=== PATIENT | female | born 1970 | race Asian ===

== ENCOUNTER → 2020-08-24 09:40 | Outpatient (BNVA) | payer OTHER, SELFPAY | PROVIDERS: PCP Internal Medicine; Referring Provider Internal Medicine; Visit Provider Advanced Practice Midwife | DX: Z30.09 Encounter for other general counseling and advice on contraception (principal); Z97.5 Presence of (intrauterine) contraceptive device | CPT/HCPCS: 99213; Q3014 ==

== ENCOUNTER → 2020-09-22 09:13 | Outpatient (BNVA) | payer OTHER, SELFPAY | PROVIDERS: Visit Provider Advanced Practice Midwife | DX: Z76.89 Persons encountering health services in other specified circumstances (principal) ==

== ENCOUNTER 2020-09-28 06:31 | Outpatient (REF) | payer OTHER, SELFPAY ==
[2020-09-28 12:04] LABS: Alanine Aminotransferase 15 U/L (0-31); Anion Gap 13 (12-20); Aspartate Amino Transferase 15 U/L (5-31); Blood Urea Nitrogen 14 mg/dL (9-16); Carbon Dioxide 29 mmol/L (22-29); Chloride 103 mmol/L (96-108); Cholesterol 214 mg/dL; Estimated Glomerular Filt Rate > 60; Glucose Fasting 126 mg/dL (60-99); HDL Cholesterol 47 mg/dL; LDL Cholesterol Calculated 125 mg/dl; Potassium 3.6 mmol/l (3.3-5.1); Sodium 141 mmol/L (135-145); Triglycerides 212 mg/dL
[2020-09-28 12:09] LABS: Estimated Average Glucose 117 mg/dL; Hemoglobin A1c % 5.7 %
== END 2020-09-28 06:32 | disposition home or self-care (01) ==
LOC: HO.HMGCLDS 06:31
PROVIDERS: PCP Internal Medicine; Visit Provider Internal Medicine
DX: E78.5 Hyperlipidemia, unspecified (principal); E11.9 Type 2 diabetes mellitus without complications; I10 Essential (primary) hypertension
CPT/HCPCS: 80048; 80061; 83036; 84450; 84460

== ENCOUNTER 2020-11-14 14:39 | Outpatient (REF) | payer OTHER, SELFPAY ==
--- NOTE | 2020-11-14 14:42 | MM_ITS ---
EXAMINATION: MM SCREENING DIGITAL BREAST TOMOSYNTHESIS, BILATERAL CLINICAL INFORMATION: Screening. Asymptomatic. The lifetime risk of breast cancer based on the Tyrer-Cuzick Model is 10%. COMPARISON: Mammography: 04/03/2019, 03/27/2018, 02/13/2017 TECHNIQUE: Digital breast tomosynthesis is performed in both the craniocaudal and mediolateral oblique views along with computer-aided detection (CAD). Synthesized 2D images are generated from the tomosynthesis. Additional bilateral MLO views are provided. FINDINGS: There are scattered areas of fibroglandular density (ACR BI-RADS breast composition Category b). There are no significant masses, abnormal calcifications, or other abnormalities. Parenchymal pattern is similar to prior study. The axilla and skin contours are unremarkable. No significant changes. MM/MM tomosynthesis screening BI IMPRESSION: No mammographic evidence of malignancy. ASSESSMENT: BI-RADS 1: Negative RECOMMENDATION: Routine annual mammography screening. This patient's information was entered into a reminder system with a target due date for their next mammogram.
== END 2020-11-14 14:40 | disposition home or self-care (01) ==
LOC: HO.MAMMO 14:39
PROVIDERS: PCP Internal Medicine; Visit Provider Internal Medicine
DX: Z12.31 Encounter for screening mammogram for malignant neoplasm of breast (principal)
CPT/HCPCS: 77063; 77067

== ENCOUNTER 2020-11-20 07:37 | Day surgery (SDC) | payer OTHER, SELFPAY ==
[2020-11-19 08:35] VITALS: BMI 32.9
--- NOTE | 2020-11-19 09:34 | P.CONAN_ITS ---
Documented by User: Dunia Quesada 11/19/20 09:38 HPI - Anesthesia Eval Consult details Narrative: 50yo F for Colonoscopy [facility] Past Medical History Medical History Essential hypertension History of hypertension Hx of anxiety disorder Hx of diabetes mellitus Hx of gastroesophageal reflux (GERD) Hx of vertigo Mixed dyslipidemia Type 2 diabetes mellitus without complication, without long-term current use of insulin Family History Family History Father Hypertension Kidney disease Mother Hypertension Stroke Surgical History Surgical History Hx of section Social History Social History Alcohol intake: never Smoking Status: Never smoker Second Hand Smoke Exposure: No Use of substances other than those prescribed or required for medical reasons: No Advance Directives: No Advance Directives Information Provided: No Advance Directives on File: No Gender identity: female Meds Allergies Allergy/AdvReac Type Severity Reaction Status Date / Time amoxicillin Allergy Unknown itchy, Verified 09/30/20 23:42 itching atorvastatin Allergy Unknown itchy, Verified 09/30/20 23:42 itching doxycycline Allergy Unknown hives Verified 09/30/20 23:42 Home Medications Medication Instructions Recorded Confirmed Type pravastatin 20 mg tablet 20 mg PO DAILY 08/24/20 History cetirizine 10 mg tablet 10 mg PO DAILY 09/30/20 History flu vac qs 2019(4 yr up)CD(PF) ml IM 09/30/20 History sertraline 50 mg tablet 50 mg PO DAILY 09/30/20 History Exam Exam Date and Time: November 19, 2020 0934 Height,Weight and Vital Signs: Height 5 ft 2 in Weight 81.647 kg Assessment and Plan Assessment Anesthesia Assessment: Chart Reviewed Documented by User: Adriana Robb 11/20/20 08:06 [facility] Past Medical History Medical History Essential hypertension History of hypertension Hx of anxiety disorder Hx of diabetes mellitus Hx of gastroesophageal reflux (GERD) Hx of vertigo Mixed dyslipidemia Type 2 diabetes mellitus without complication, without long-term current use of insulin Family History Family History Father Hypertension Kidney disease Mother Hypertension Stroke Surgical History Surgical History Hx of section Social History Social History Alcohol intake: never Smoking Status: Never smoker Second Hand Smoke Exposure: No Use of substances other than those prescribed or required for medical reasons: No Advance Directives: No Advance Directives Information Provided: No Advance Directives on File: No Gender identity: female Meds Allergies Allergy/AdvReac Type Severity Reaction Status Date / Time amoxicillin Allergy Unknown itchy, Verified 09/30/20 23:42 itching atorvastatin Allergy Unknown itchy, Verified 09/30/20 23:42 itching doxycycline Allergy Unknown hives Verified 09/30/20 23:42 Home Medications Medication Instructions Recorded Confirmed Type pravastatin 20 mg tablet 20 mg PO DAILY 08/24/20 History cetirizine 10 mg tablet 10 mg PO DAILY 09/30/20 History flu vac qs 2020(4 yr up)CD(PF) ml IM 09/30/20 History sertraline 50 mg tablet 50 mg PO DAILY 09/30/20 History Exam Airway Mallampati Class: II TM Dist: >3cm Neck ROM: Full Partial: Upper and Lower Heart: RRR Lungs: CTA Assessment and Plan Assessment Anesthesia Assessment: Anesthesia Plan Discussed and Chart Reviewed Final Anesthetic Review NPO: Yes ASA Class: II Final Preanesthetic Review: Meds/Allgs Chart Reviewed, Consent Obtained/Reviewed and Anes Risks/Benef Reviewed Patient Risk: Low Procedure Risk: Low Assessment/Block/Sedation in SS: Assess/Block/Sedation-SS Anesthetic Plan Anesthetic Plan: MAC: Disposition: Standard PACU
--- NOTE | 2020-11-20 07:53 | W.PM.OPN ---
Operative Note Operative Note Date of Service: 11/20/20 Narrative: Pre-op diagnosis: Colon cancer screening Post-op diagnosis: other (Diverticulosis, hemorrhoids) Procedure: COLONOSCOPY TO CECUM Consent: Indications for the procedure and potential complications of bleeding, perforation, reaction to medications and missed diagnosis were discussed with the patient and informed consent was obtained. Instrument: Olympus PCF H 190 L variable stiffness pediatric colonoscope Monitoring: Vital signs and clinical assessment, intermittent blood pressure monitoring, continuous EKG monitoring, Pulse oximetry and Carbon Dioxide monitoring were done throughout the procedure. Colon withdrawl time was 17 minutes. Procedure: The patient was placed in the left lateral decubitis position and pre-procedure medications were administered. After a digital rectal examination of the ano-rectum, the video colonoscope was inserted into the rectum and advanced through the colon to the cecum. The colonoscope was slowly withdrawn in a retrograde panoramic fashion and the colon mucosa was carefully examined including a retroflexed view of the rectum. Findings and interventions are described below. Procedure Difficulty: Without difficulty Findings: Terminal Ileum: Not evaluated Cecum: Normal Ascending Colon: Normal Transverse Colon: Normal Descending Colon: Normal Sigmoid Colon: Moderate diverticulosis Rectum: Normal Ano-rectum: Moderate internal hemorrhoids Colon preparation: Good after some irrigation. Impression and Post Procedure Diagnosis: Colonoscopy Findings: No polyps were detected Moderate diverticulosis seen in the sigmoid colon Moderate hemorrhoids on retroflexed exam. Plan: Await pathology results Patient has an appointment on 11/26/20 in the GI Clinic with LORAINE Haro. Repeat Colonoscopy in 10 years. 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
--- NOTE | 2020-11-20 07:53 | MHC.SHP ---
Pre-Procedural Eval Section A The patient is an INPATIENT: No Section B Chief Complaint: Screening Details of Present Illness: In cancer screening, intermittent rectal bleeding Relevant Family History (Specify if Yes): No Relevant Social History: None Present Medications: see Short Stay Collaborative assessment Medical History: Significant History (Vertigo. Hypertension. gastroesophageal reflux disease (GERD). Anxiety. Diabetes mellitus. Dyslipidemia. ) History of Previous Operations: No relevant previous surgery Allergies: Allergies Allergy/AdvReac Type Severity Reaction Status Date / Time amoxicillin Allergy Unknown itchy, Verified 09/30/20 23:42 itching atorvastatin Allergy Unknown itchy, Verified 09/30/20 23:42 itching doxycycline Allergy Unknown hives Verified 09/30/20 23:42 Review of Systems Sugical H&P ROS: Negative: Constitution, Cardiovascular, Respiratory and Gastrointestinal Exam Surgical H&P Exam: Normal: Heart, Normal: Lungs, Normal: Extremities and Normal: Abdomen Plan Diagnosis/Plan: Unchanged I have reviewed the history and physical and performed a pertinent physical examination on my patient. No changes have occurred unless specified.
[2020-11-20 08:02] VITALS: BP 138/94; PULSE 75; RESP 16; TEMP 35.9; O2SAT 97
[2020-11-20] MEDS: Lactated Ringers 1,000 ML 100 ML IVCONT (08:07)
[2020-11-20 08:55] VITALS: BP 113/73; PULSE 84; RESP 16; TEMP 36.3; O2SAT 97
[2020-11-20 09:11] VITALS: BP 118/86; PULSE 71; RESP 16; TEMP 36.3; O2SAT 96
== END 2020-11-20 09:50 | disposition home or self-care (01) ==
PROVIDERS: PCP Internal Medicine; Visit Provider Internal Medicine Gastroenterology
PROC: 0DJD8ZZ Inspection of Lower Intestinal Tract, Via Natural or Artificial Opening Endoscopic (ICD-10-PCS; CPT 45378; principal; 2020-11-20 09:30)
DX: Z12.11 Encounter for screening for malignant neoplasm of colon (principal); K57.30 Diverticulosis of large intestine without perforation or abscess without bleeding; K64.8 Other hemorrhoids; I10 Essential (primary) hypertension; E11.9 Type 2 diabetes mellitus without complications; Z79.84 Long term (current) use of oral hypoglycemic drugs; Z88.0 Allergy status to penicillin; Z88.1 Allergy status to other antibiotic agents; Z88.8 Allergy status to other drugs, medicaments and biological substances; Z79.899 Other long term (current) drug therapy
CPT/HCPCS: G0121

== ENCOUNTER → 2020-11-26 14:55 | Outpatient (BNVA) | payer OTHER, SELFPAY | PROVIDERS: PCP Internal Medicine; Visit Provider Physician Assistant | DX: K57.30 Diverticulosis of large intestine without perforation or abscess without bleeding (principal); K64.8 Other hemorrhoids | CPT/HCPCS: 99212; Q3014 ==

== ENCOUNTER 2020-12-30 06:22 | Outpatient (REF) | payer OTHER, SELFPAY ==
[2020-12-30 11:44] LABS: Estimated Average Glucose 120 mg/dL; Hemoglobin A1c % 5.8 %
[2020-12-30 12:08] LABS: Alanine Aminotransferase 16 U/L (0-31); Anion Gap 12 (12-20); Aspartate Amino Transferase 16 U/L (5-31); Blood Urea Nitrogen 16 mg/dL (9-16); Calcium 9.2 mg/dL (8.4-10.2); Carbon Dioxide 27 mmol/L (22-29); Chloride 106 mmol/L (96-108); Cholesterol 191 mg/dL; Estimated Glomerular Filt Rate > 60; Glucose Fasting 138 mg/dL (60-99); HDL Cholesterol 46 mg/dL; LDL Cholesterol Calculated 111 mg/dl; Potassium 3.8 mmol/L (3.3-5.1); Sodium 141 mmol/L (135-145); Triglycerides 170 mg/dL
[2020-12-30 12:13] LABS: Creatinine Urine 178.01 mg/dL; Microalbum/Creatinine Ratio Ur 85.3 ug/mg cr
== END 2020-12-30 06:23 | disposition home or self-care (01) ==
LOC: HO.HMGCLDS 06:22
PROVIDERS: PCP Internal Medicine; Visit Provider Internal Medicine
DX: I10 Essential (primary) hypertension (principal); E78.2 Mixed hyperlipidemia; E11.9 Type 2 diabetes mellitus without complications
CPT/HCPCS: 36415; 80048; 80061; 82043; 83036; 84450; 84460

== ENCOUNTER 2021-07-13 06:18 | Outpatient (REF) | payer OTHER, SELFPAY ==
[2021-07-13 11:46] LABS: Alanine Aminotransferase 29 U/L (0-31); Anion Gap 13 (12-20); Aspartate Amino Transferase 23 U/L (5-31); Blood Urea Nitrogen 14 mg/dL (9-16); Calcium 9.8 mg/dL (8.4-10.2); Carbon Dioxide 25 mmol/L (22-29); Chloride 107 mmol/L (96-108); Cholesterol 201 mg/dL; Estimated Glomerular Filt Rate > 60; Glucose Fasting 143 mg/dL (60-99); HDL Cholesterol 44 mg/dL; LDL Cholesterol Calculated 131 mg/dl; Sodium 141 mmol/L (135-145); Triglycerides 133 mg/dL
[2021-07-13 11:54] LABS: Estimated Average Glucose 128 mg/dL; Hemoglobin A1c % 6.1 %
[2021-07-13 11:55] LABS: Vitamin D 25-OH Total 32.2 ng/mL (>30)
== END 2021-07-13 06:19 | disposition home or self-care (01) ==
LOC: HO.HMGCLDS 06:18
PROVIDERS: PCP Internal Medicine; Visit Provider Internal Medicine
DX: E11.29 Type 2 diabetes mellitus with other diabetic kidney complication (principal); R80.9 Proteinuria, unspecified; I10 Essential (primary) hypertension; E78.2 Mixed hyperlipidemia
CPT/HCPCS: 36415; 80048; 80061; 82306; 83036; 84450; 84460

== ENCOUNTER 2021-09-20 11:32 | Outpatient (REF) | payer OTHER, SELFPAY ==
--- NOTE | ~2021-09-20 | XR_ITS ---
EXAMINATION: XR ANKLE, RIGHT CLINICAL INFORMATION: M25.571 - Pain in right ankle and joints of right foot COMPARISON: None TECHNIQUE: AP, lateral, and mortise views of the right ankle. FINDINGS: There is soft tissue swelling overlying lateral malleolus and also lesser soft tissue swelling medial side. No definite ankle capsular effusion appreciated on lateral view. The retrocalcaneal recess is preserved. The malleoli appear intact and there is no fracture or dislocation or destructive process. There is questionable asymmetry of the ankle mortise versus projectional. The subtalar joint is unremarkable. There is spurring from the distal anterior and distal posterior tibia with some corticated ossicle posterior side of the joint. Small posterior and moderate plantar calcaneal spurs are present. There is spurring from the dorsum tarsal navicular. XR/XR ankle RT min 3V IMPRESSION: Prominent soft tissue swelling, greater lateral side. No visible fracture or dislocation.
== END 2021-09-20 11:33 | disposition home or self-care (01) ==
LOC: HO.HMGCX 11:32
PROVIDERS: PCP Internal Medicine; Visit Provider Physician Assistant
DX: M25.571 Pain in right ankle and joints of right foot (principal)
CPT/HCPCS: 73610

== ENCOUNTER → 2021-09-28 09:10 | Outpatient (BNVA) | payer OTHER, SELFPAY | PROVIDERS: Visit Provider Advanced Practice Midwife ==

== ENCOUNTER 2021-11-27 09:44 | Outpatient (REF) | payer OTHER, SELFPAY ==
--- NOTE | ~2021-11-27 | MM_ITS ---
EXAMINATION: MM SCREENING DIGITAL BREAST TOMOSYNTHESIS, BILATERAL CLINICAL INFORMATION: Screening. Asymptomatic. The lifetime risk of breast cancer based on the Tyrer-Cuzick Model is 9%. COMPARISON: Mammography: 11/14/2020, 04/03/2019, 03/27/2018 TECHNIQUE: Digital breast tomosynthesis is performed in both the craniocaudal and mediolateral oblique views along with computer-aided detection (CAD). Synthesized 2D images are generated from the tomosynthesis. FINDINGS: There are scattered areas of fibroglandular density (ACR BI-RADS breast composition Category b). The left breast is unremarkable. There is no interval mass or architectural abnormality. Neither breast shows abnormal calcifications. The bilateral axilla and skin contours are unremarkable. Intramammary node posterior upper outer right breast is stable. Right CC tomography has subtle asymmetric density with questionable radiating lines central breast 0.5 cm from nipple. There is no MLO correlate. Finding may be related to incompletely compressed glandular tissue. Patient will be recalled for additional imaging. MM/MM tomosynthesis screening BI IMPRESSION: 1. Right: Asymmetric density with questionable radiating lines right CC tomography. 2. Left: No mammographic evidence of malignancy. ASSESSMENT: BI-RADS 0: Incomplete - Need Additional Imaging Evaluation RECOMMENDATION: 1. Additional views of the right breast (spot CC; rolled CC x 2). 2. Targeted ultrasound if warranted after review of the additional views. 3. Radiology department staff will contact the patient for additional imaging. This patient's information was entered into a reminder system with a target due date for their next mammogram.
== END 2021-11-27 09:45 | disposition home or self-care (01) ==
LOC: HO.MAMMO 09:44
PROVIDERS: PCP Internal Medicine; Visit Provider Internal Medicine
DX: Z12.31 Encounter for screening mammogram for malignant neoplasm of breast (principal)
CPT/HCPCS: 77063; 77067

== ENCOUNTER 2021-12-14 13:57 | Outpatient (REF) | payer OTHER, SELFPAY ==
--- NOTE | ~2021-12-14 | MM_ITS ---
EXAMINATION: MM DIAGNOSTIC DIGITAL BREAST TOMOSYNTHESIS, RIGHT CLINICAL INFORMATION: Recall from screening for question of asymmetric density and radiating lines central right breast on CC view. TC score 9%. COMPARISON: Mammography: 11/27/2021, 11/14/2020, 04/03/2019 TECHNIQUE: Digital breast tomosynthesis is performed. 2D images are generated from the tomosynthesis. The following views are obtained: Rolled CC x2, spot CC. FINDINGS: There are scattered areas of fibroglandular density (ACR BI-RADS breast composition Category b). The additional views show no asymmetric density or architectural abnormality. No developing density from prior studies. Fibroglandular densities are similar to prior studies. Results are discussed with the patient at time of visit. MM/MM tomosynthesis added views R IMPRESSION: Additional views show no asymmetric density or architectural abnormality. No significant changes from prior exams. ASSESSMENT: BI-RADS 1: Negative RECOMMENDATION: Routine annual mammography screening. This patient's information was entered into a reminder system with a target due date for their next mammogram.
== END 2021-12-14 13:58 | disposition home or self-care (01) ==
LOC: HO.MAMMO 13:57
PROVIDERS: PCP Internal Medicine; Visit Provider Internal Medicine
DX: R92.2 Inconclusive mammogram (principal)
CPT/HCPCS: 77061; 77065

== ENCOUNTER 2022-01-10 06:19 | Outpatient (REF) | payer OTHER, SELFPAY ==
[2022-01-10 12:07] LABS: Alanine Aminotransferase 31 U/L (0-31); Anion Gap 15 (12-20); Aspartate Amino Transferase 22 U/L (5-31); Blood Urea Nitrogen 9 mg/dL (9-16); Calcium 9.9 mg/dL (8.4-10.2); Carbon Dioxide 28 mmol/L (22-29); Chloride 103 mmol/L (96-108); Cholesterol 200 mg/dL; Estimated Glomerular Filt Rate > 60; Glucose Fasting 150 mg/dL (60-99); HDL Cholesterol 44 mg/dL; LDL Cholesterol Calculated 114 mg/dl; Potassium 4.1 mmol/L (3.3-5.1); Sodium 142 mmol/L (135-145); Triglycerides 213 mg/dL
[2022-01-10 12:32] LABS: Creatinine Urine 203.84 mg/dL; Microalbum/Creatinine Ratio Ur 57.3 ug/mg cr; Vitamin D 25-OH Total 20.2 ng/mL (>30)
[2022-01-10 12:38] LABS: Estimated Average Glucose 137 mg/dL; Hemoglobin A1c % 6.4 %
== END 2022-01-10 06:20 | disposition home or self-care (01) ==
LOC: HO.HMGCLDS 06:19
PROVIDERS: Visit Provider Internal Medicine
DX: E11.9 Type 2 diabetes mellitus without complications (principal); E78.2 Mixed hyperlipidemia; I10 Essential (primary) hypertension; Z78.0 Asymptomatic menopausal state
CPT/HCPCS: 36415; 80048; 80061; 82043; 82306; 83036; 84450; 84460

== ENCOUNTER → 2022-03-04 08:31 | Outpatient (REF) | payer OTHER, SELFPAY ==
--- NOTE | 2022-03-04 08:43 | ECG_ITS ---
Test Reason : z01.818 Blood Pressure : / mmHG Vent. Rate : 072 BPM Atrial Rate : 072 BPM P-R Int : 154 ms QRS Dur : 086 ms QT Int : 388 ms P-R-T Axes : 040 -06 -30 degrees QTc Int : 424 ms Normal sinus rhythm Nonspecific T wave abnormality Abnormal ECG When compared with ECG of 18-JAN-2013 13:18, No significant change was found Referred By: Claire Castillo Electronically Signed By:MATTHEW KEEN MD
== END ==
LOC: HO.CARD 08:31
PROVIDERS: PCP Internal Medicine; Visit Provider Internal Medicine
DX: Z01.810 Encounter for preprocedural cardiovascular examination (principal)
CPT/HCPCS: 93005

== ENCOUNTER 2022-03-07 06:05 | Outpatient (REF) | payer OTHER, SELFPAY ==
[2022-03-07 11:42] LABS: Estimated Average Glucose 131 mg/dL; Hemoglobin A1c % 6.2 %
[2022-03-07 11:56] LABS: Anion Gap 14 (12-20); Blood Urea Nitrogen 17 mg/dL (9-16); Calcium 9.5 mg/dL (8.4-10.2); Carbon Dioxide 25 mmol/L (22-29); Chloride 105 mmol/L (96-108); Estimated Glomerular Filt Rate > 60; Glucose Fasting 156 mg/dL (60-99); Potassium 3.6 mmol/L (3.3-5.1); Sodium 140 mmol/L (135-145)
== END 2022-03-07 06:06 | disposition home or self-care (01) ==
LOC: HO.HMGCLDS 06:05
PROVIDERS: Visit Provider Internal Medicine
DX: Z01.818 Encounter for other preprocedural examination (principal); E11.9 Type 2 diabetes mellitus without complications
CPT/HCPCS: 36415; 80048; 83036

== ENCOUNTER 2022-07-12 06:18 | Outpatient (REF) | payer OTHER, SELFPAY ==
[2022-07-12 12:10] LABS: Vitamin D 25-OH Total 29.9 ng/mL (>30)
[2022-07-12 12:13] LABS: Alanine Aminotransferase 40 U/L (0-31); Anion Gap 16 (12-20); Aspartate Amino Transferase 29 U/L (5-31); Blood Urea Nitrogen 12 mg/dL (9-16); Calcium 9.2 mg/dL (8.4-10.2); Carbon Dioxide 26 mmol/L (22-29); Chloride 103 mmol/L (96-108); Cholesterol 199 mg/dL; Estimated Glomerular Filt Rate > 60; Glucose Fasting 157 mg/dL (60-99); HDL Cholesterol 39 mg/dL; LDL Cholesterol Calculated 113 mg/dl; Potassium 4.1 mmol/L (3.3-5.1); Sodium 141 mmol/L (135-145); Triglycerides 237 mg/dL
[2022-07-12 12:16] LABS: Estimated Average Glucose 146 mg/dL; Hemoglobin A1c % 6.7 %
[2022-07-12 12:28] LABS: Uric Acid 7.2 mg/dL (2.4-5.7)
[2022-07-12 12:43] LABS: Creatinine Urine 111.25 mg/dL; Microalbum/Creatinine Ratio Ur 82.6 ug/mg cr
== END 2022-07-12 06:19 | disposition home or self-care (01) ==
LOC: HO.HMGCLDS 06:18
PROVIDERS: PCP Internal Medicine; Visit Provider Internal Medicine
DX: Z00.01 Encounter for general adult medical examination with abnormal findings (principal); E11.29 Type 2 diabetes mellitus with other diabetic kidney complication; E55.9 Vitamin D deficiency, unspecified; E78.2 Mixed hyperlipidemia; I10 Essential (primary) hypertension; R80.9 Proteinuria, unspecified; M25.50 Pain in unspecified joint
CPT/HCPCS: 36415; 80048; 80061; 82043; 82306; 83036; 84450; 84460; 84550

== ENCOUNTER 2022-11-14 06:30 | Outpatient (REF) | payer OTHER, SELFPAY ==
[2022-11-14 11:23] LABS: Estimated Average Glucose 154 mg/dL
[2022-11-14 11:38] LABS: Alanine Aminotransferase 41 U/L (0-31); Albumin Level 4.2 g/dL (3.5-5.0); Alkaline Phosphatase 99 U/L (39-117); Anion Gap 11 (12-20); Aspartate Amino Transferase 29 U/L (5-31); Bilirubin Total 1.1 mg/dL (0.0-1.0); Blood Urea Nitrogen 9 mg/dL (9-16); Calcium 9.3 mg/dL (8.4-10.2); Carbon Dioxide 28 mmol/L (22-29); Chloride 105 mmol/L (96-108); Cholesterol 193 mg/dL; Estimated Glomerular Filt Rate > 60; Glucose Fasting 178 mg/dL (60-99); HDL Cholesterol 43 mg/dL; LDL Cholesterol Calculated 124 mg/dl; Potassium 3.7 mmol/L (3.3-5.1); Sodium 140 mmol/L (135-145); Total Protein 7.5 g/dL (6.5-8.0); Triglycerides 133 mg/dL
[2022-11-14 11:42] LABS: Vitamin D 25-OH Total 24.5 ng/mL (>30)
[2022-11-14 12:51] LABS: Creatinine Urine 178.19 mg/dL; Microalbum/Creatinine Ratio Ur 118.9 ug/mg cr
== END 2022-11-14 06:31 | disposition home or self-care (01) ==
LOC: HO.HMGCLDS 06:30
PROVIDERS: PCP Internal Medicine; Visit Provider Internal Medicine
DX: E11.29 Type 2 diabetes mellitus with other diabetic kidney complication (principal); E55.9 Vitamin D deficiency, unspecified; E66.9 Obesity, unspecified; R80.9 Proteinuria, unspecified; I10 Essential (primary) hypertension; E78.2 Mixed hyperlipidemia
CPT/HCPCS: 36415; 80053; 80061; 82043; 82306; 83036

== ENCOUNTER 2022-11-18 12:04 | Outpatient (AMB) | payer OTHER, SELFPAY ==
--- NOTE | 2022-11-18 12:00 | MHC.PC.OV ---
Intake Visit Reasons: 3 month ffup dm ,lipids, [phone] Intake Note: Pt is having a telehealth follow up appointment. [phone] IPHONE Allergies amoxicillin Allergy (Unknown, Verified 02/26/24 01:25) itchy, itching atorvastatin Allergy (Unknown, Verified 02/26/24 01:25) itchy, itching doxycycline Allergy (Unknown, Verified 02/26/24 01:25) hives Medication List - Last Reconciled 11/18/22 by Claire Castillo MD azithromycin take 500 mg today (day 1), then 250 mg for 4 days (days 2-5) PO cetirizine 10 mg PO DAILY flu vac qs 2019(4 yr up)CD(PF) mL IM lisinopril 10 mg PO DAILY meclizine 12.5 mg PO DAILY PRN naproxen 500 mg PO BID PRN omeprazole 40 mg PO DAILY 30 days pravastatin 80 mg PO BEDTIME sertraline 50 mg PO DAILY Tobacco use date assessed: 11/18/22 HPI 3 month ffup dm ,lipids, [phone] HPI Details Tele health visit made with 53-year-old lady here today for follow-up on her diabetes mellitus and hyperlipidemia. Had recent fasting labs done which showed latest hemoglobin A1c higher at 7%. Has been trying to follow recommended diet but not able to get any regular exercise lately. LDL cholesterol on latest lab drawn was still elevated, even with taking pravastatin 80 mg daily PFSH Medical History (Updated 02/26/24 @ 01:27 by Claire Castillo MD) Depression, controlled History of shingles Intra-articular loose body Lesion of bone of ankle Vitamin D deficiency Dyslipidemia Obesity (BMI 30-39.9) Seasonal allergies Diabetes mellitus with microalbuminuria, without long-term current use of insulin Essential hypertension Type 2 diabetes mellitus without complication, without long-term current use of insulin Mixed dyslipidemia Hx of gastroesophageal reflux (GERD) Surgical History H/O foot surgery Hx of section Family History Father Hypertension Kidney disease Mother Hypertension Stroke Brother No problems noted. Brother No problems noted. Brother No problems noted. Brother No problems noted. Sister No problems noted. Sister No problems noted. Sister No problems noted. Sister No problems noted. Son No problems noted. 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 How often do you have a drink containing alcohol?: Never 3. How often do you have six or more drinks on one occasion?: Never Total Score: 0 EDI-7 AMB Questionnaire EDI-7 Date EDI - 7 assessed: 01/11/22 Source: Developed by Drs. Tay Kendall, Monet Blandon, Ritesh Miner and colleagues, with an educational yifan from [employer]. Review of Systems Const Denies fatigue, Denies fever(s), Denies headache(s) and Denies weakness Eyes Denies change in vision, Denies eye discharge and Denies itchy eyes ENT Denies dizziness, Denies headache(s), Denies nasal congestion, Denies nasal discharge and Denies sore throat Card Denies chest pain, Denies lightheadedness, Denies palpitations and Denies dyspnea Resp Denies chest congestion, Denies cough, Denies dyspnea and Denies wheezing GI Denies abdominal pain, Denies melena, Denies hematochezia, Denies change in bowel habits, Denies heartburn and Denies nausea Denies urinary frequency, Denies dysuria and Denies urinary urgency Musc Denies muscle cramps, Denies muscle weakness and Denies radiating pain into limb Neuro Denies dizziness, Denies headache(s) and Denies weakness Endo Denies fatigue, Denies polydipsia, Denies polyuria and Denies palpitations Aller/Immun Denies itchy eyes, Denies seasonal rhinorrhea and Denies wheezing Physical exam (Primary Care) Tobacco/Smoking Status: Tobacco use Status Tobacco use date assessed 11/18/22 11/18/22 12:01 Patient Tobacco Use Status Never used Tobacco 11/18/22 12:01 e-Cigarette/Vaping Use Never Used 11/18/22 12:01 Thrive Assessment: Date of Thrive Assessment Date Thrive assessed 01/11/22 11/18/22 12:01 Telehealth Telehealth Location of provider rendering services: practice address Location of patient: address on file Patient Identification confirmed using: Name, : Yes Telehealth method: video Patient verbally consented to treatment: Yes Patient verbally consented to billing insurance company: Yes Patient informed of any privacy concerns related to visit: Yes Minutes spent on Phone/Video with Pt.: 15 Results Reviewed Results Reviewed: Laboratory Tests 11/14/22 06:36 Estimat Average Glucose 154 Hemoglobin A1c % 7.0 Urine Creatinine 178.19 Urine Microalbumin 212.0 Microalb/Creat Ratio 118.9 Name: Leandro Núñez Age/Sex: 52/F : 1970 Unit#: [id number] Attend Dr: Claire Castillo MD Re11/14/22 Status: DEP [facility] Disch: SPEC : [id number] DAVID: 11/14/22-635 STATUS: COMP REQ : [id number] RECD: 11/14/22-[address]: Claire Castillo MD COMP: 11/14/22-1142 ENTERED: 11/14/22-[address]: ORDERED: CMP Fast, Lipid Panel, Vitamin D 25-OH Test Result Flag Reference Sodium 140 135-145 mmol/L Potassium 3.7 3.3-5.1 mmol/L CL 105 96-108 mmol/L CO2 28 22-29 mmol/L Gap 11 L 12-20 BUN 9 9-16 mg/dL Creat 0.70 0.5-1.4 mg/dL EGFR > 60 NOTE: For -[place] individuals, multiply the result by 1.210. Chronic Kidney Disease: Estimated GFR < 60 mL/min/1.73m2 Severe Kidney Disease: Estimated GFR < 15 mL/min/1.73m2 FBS 178 H 60-99 mg/dL A fasting glucose of 126 mg/dl or greater on more than one occasion is considered diagnostic of diabetes. CA 9.3 8.4-10.2 mg/dL Total Bili 1.1 H 0.0-1.0 mg/dL AST (GOT) 29 5-31 U/L ALT (GPT) 41 H 0-31 U/L Protein, Total 7.5 6.5-8.0 g/dL Alb 4.2 3.5-5.0 g/dL Triglyceride 133 mg/dL Desirable Triglyceride: less than 150 mg/dL Borderline High Triglyceride 150-199 mg/dL High Triglyceride: 200-499 mg/dL Very High Triglyceride: greater than or equal to 5OO mg/dL Chol 193 mg/dL Desirable Cholesterol: less than 200 mg/dL Borderline High Cholesterol: 200-239 mg/dL High Cholesterol: greater than 239 mg/dL LDL Calculated 124 mg/dl Desirable LDL: less than 100 mg/dL Near Optimal/Above Optimal LDL: 110-129 mg/dL Borderline High LDL: 130-159 mg/dL High LDL: 160-189 mg/dL Very High LDL: greater than or equal to 190 mg/dL HDL 43 mg/dL Desirable HDL: greater than 40 mg/dL Note: This HDL assay may give artificially low results in patients with liver disease. Alk Phos 99 39-117 U/L Vit D 25-OH Tot 24.5 >30 ng/mL Health Based Reference Values* < 20 ng/mL Deficient 20-30 ng/mL Insufficient > 30 ng/mL Sufficient Assessment and Plan Assessment & Plan (1) Vitamin D deficiency: Code(s): E55.9 - Vitamin D deficiency, unspecified Plan: Patient also noted to have low vitamin-D level on recent lab done. Prescription sent for cholecalciferol 54205 units per capsule to take once a week for the next 3 months. Advised patient to continue taking vitamin-D 3 at 2000 units daily once she completes taking this prescription. (2) Dyslipidemia: Code(s): E78.5 - Hyperlipidemia, unspecified Plan: Fasting lipid panel showed LDL cholesterol not at goal, discontinue pravastatin and switched to rosuvastatin 5 mg daily. (3) Diabetes mellitus with microalbuminuria, without long-term current use of insulin: Code(s): E11.29 - Type 2 diabetes mellitus with other diabetic kidney complication; R80.9 - Proteinuria, unspecified Plan: Diabetes mellitus poorly controlled with diet and exercise, with hemoglobin A1c at 7%. Will start on metformin 500 mg per tablet to take 1 tablet with supper, reinforced importance of getting regular diabetes ice-cream, following recommended diet and getting regular exercise. Will repeat another set of labs in 3 months (4) Essential hypertension: Code(s): I10 - Essential (primary) hypertension (5) Mixed dyslipidemia: Code(s): E78.2 - Mixed hyperlipidemia Orders: Orders Hemoglobin A1c 3 Months I10 - Essential (primary) hypertension, E78.2 - Mixed hyperlipidemia, E78.5 - Hyperlipidemia, unspecified, E55.9 - Vitamin D deficiency, unspecified Aspartate Amino Transferase 3 Months I10 - Essential (primary) hypertension, E78.2 - Mixed hyperlipidemia, E78.5 - Hyperlipidemia, unspecified, E55.9 - Vitamin D deficiency, unspecified Microalbumin, Random (w Creat) 3 Months I10 - Essential (primary) hypertension, E78.2 - Mixed hyperlipidemia, E78.5 - Hyperlipidemia, unspecified, E55.9 - Vitamin D deficiency, unspecified Alanine Aminotransferase 3 Months I10 - Essential (primary) hypertension, E78.2 - Mixed hyperlipidemia, E78.5 - Hyperlipidemia, unspecified, E55.9 - Vitamin D deficiency, unspecified Lipid Panel 3 Months I10 - Essential (primary) hypertension, E78.2 - Mixed hyperlipidemia, E78.5 - Hyperlipidemia, unspecified, E55.9 - Vitamin D deficiency, unspecified Basic Metabolic Panel Fasting 3 Months I10 - Essential (primary) hypertension, E78.2 - Mixed hyperlipidemia, E78.5 - Hyperlipidemia, unspecified, E55.9 - Vitamin D deficiency, unspecified Vitamin D 25-OH Total 3 Months I10 - Essential (primary) hypertension, E78.2 - Mixed hyperlipidemia, E78.5 - Hyperlipidemia, unspecified, E55.9 - Vitamin D deficiency, unspecified Medications: New metformin take with supper 500 mg PO DAILY 90 tabs 1RF rosuvastatin 5 mg PO DAILY 90 tabs 1RF Changed From cholecalciferol (vitamin D3) 1,250 mcg PO QWEEK 90 days 13 caps 0RF E55.9 - Vitamin D deficiency, unspecified, E78.5 - Hyperlipidemia, unspecified, E11.29 - Type 2 diabetes mellitus with other diabetic kidney complication, R80.9 - Proteinuria, unspecified To cholecalciferol (vitamin D3) 1,250 mcg PO QWEEK 13 caps 0RF 90 days E55.9 - Vitamin D deficiency, unspecified, E78.5 - Hyperlipidemia, unspecified, E11.29 - Type 2 diabetes mellitus with other diabetic kidney complication, R80.9 - Proteinuria, unspecified Discontinued pravastatin Discontinued Reason: Doctor's Order 80 mg PO BEDTIME 90 tabs 1RF E78.5 - Hyperlipidemia, unspecified Coding Level of Care Code Tele Est Pt Level 4 (11690) Diagnoses Vitamin D deficiency E55.9 Dyslipidemia E78.5 Diabetes mellitus with microalbuminuria, without long-term current use of insulin E11.29; R80.9 Essential hypertension I10 Mixed dyslipidemia E78.2
== END 2022-11-18 13:55 | disposition home or self-care (01) ==
LOC: HO.HMGC 12:04
PROVIDERS: PCP Internal Medicine; Visit Provider Internal Medicine
DX: E55.9 Vitamin D deficiency, unspecified (principal); E78.5 Hyperlipidemia, unspecified; E11.29 Type 2 diabetes mellitus with other diabetic kidney complication; R80.9 Proteinuria, unspecified; I10 Essential (primary) hypertension; E78.2 Mixed hyperlipidemia
CPT/HCPCS: 99499

== ENCOUNTER 2022-12-03 10:09 | Outpatient (REF) | payer OTHER, SELFPAY ==
--- NOTE | ~2022-12-03 | MM_ITS ---
EXAMINATION: MM SCREENING DIGITAL BREAST TOMOSYNTHESIS, BILATERAL CLINICAL INFORMATION: Screening. Asymptomatic. The lifetime risk of breast cancer based on the Tyrer-Cuzick Model is 9.6%. COMPARISON: Mammography: December 14, 2021 and studies dating back to December 01, 2015 TECHNIQUE: Digital breast tomosynthesis is performed in both the craniocaudal and mediolateral oblique views along with computer-aided detection (CAD). Synthesized 2D images are generated from the tomosynthesis. FINDINGS: There are scattered areas of fibroglandular density (ACR BI-RADS breast composition Category b). There are no new significant masses, abnormal calcifications, or other abnormalities. MM/MM tomosynthesis screening BI IMPRESSION: No significant changes ASSESSMENT: BI-RADS 1: Negative RECOMMENDATION: Routine annual mammography screening. This patient's information was entered into a reminder system with a target due date for their next mammogram.
== END 2022-12-03 10:10 | disposition home or self-care (01) ==
LOC: HO.MAMMO 10:09
PROVIDERS: PCP Internal Medicine; Visit Provider Internal Medicine
DX: Z12.31 Encounter for screening mammogram for malignant neoplasm of breast (principal)
CPT/HCPCS: 77063; 77067

== ENCOUNTER 2022-12-15 10:46 | Outpatient (REF) | payer OTHER, SELFPAY ==
[2022-12-16 13:15] LABS: BV Int Neg Control Negative (Negative); BV Int Pos Control Positive (Positive)
== END 2022-12-15 10:47 | disposition home or self-care (01) ==
LOC: HO.LAB 10:46
PROVIDERS: PCP Internal Medicine; Visit Provider Advanced Practice Midwife
DX: Z01.419 Encounter for gynecological examination (general) (routine) without abnormal findings (principal); N89.8 Other specified noninflammatory disorders of vagina
CPT/HCPCS: 87480; 87510; 87660

== ENCOUNTER → 2023-01-26 14:49 | Outpatient (BNVA) | payer OTHER, SELFPAY | PROVIDERS: PCP Internal Medicine; Visit Provider Advanced Practice Midwife | DX: Z30.432 Encounter for removal of intrauterine contraceptive device (principal); T83.32XA Displacement of intrauterine contraceptive device, initial encounter | CPT/HCPCS: 58301 ==

== ENCOUNTER 2023-02-16 06:35 | Outpatient (REF) | payer OTHER, SELFPAY ==
[2023-02-16 11:44] LABS: Alanine Aminotransferase 32 U/L (0-31); Anion Gap 15 (12-20); Aspartate Amino Transferase 22 U/L (5-31); Blood Urea Nitrogen 14 mg/dL (9-16); Calcium 9.3 mg/dL (8.4-10.2); Carbon Dioxide 28 mmol/L (22-29); Chloride 103 mmol/L (96-108); Cholesterol 157 mg/dL; Estimated Glomerular Filt Rate > 60; Glucose Fasting 139 mg/dL (60-99); HDL Cholesterol 40 mg/dL; LDL Cholesterol Calculated 86 mg/dl; Potassium 3.8 mmol/L (3.3-5.1); Sodium 142 mmol/L (135-145); Triglycerides 157 mg/dL
[2023-02-16 11:56] LABS: Estimated Average Glucose 126 mg/dL
[2023-02-16 12:00] LABS: Vitamin D 25-OH Total 86.1 ng/mL (>30)
[2023-02-16 12:32] LABS: Microalbum/Creatinine Ratio Ur 59.2 ug/mg cr
== END 2023-02-16 06:36 | disposition home or self-care (01) ==
LOC: HO.HMGCLDS 06:35
PROVIDERS: PCP Internal Medicine; Visit Provider Internal Medicine
DX: E55.9 Vitamin D deficiency, unspecified (principal); I10 Essential (primary) hypertension; E78.2 Mixed hyperlipidemia
CPT/HCPCS: 36415; 80048; 80061; 82043; 82306; 83036; 84450; 84460

== ENCOUNTER 2023-07-12 06:09 | Outpatient (REF) | payer OTHER, SELFPAY ==
[2023-07-12 12:09] LABS: Estimated Average Glucose 134 mg/dL; Hemoglobin A1c % 6.3 % (<6.0)
[2023-07-12 12:41] LABS: Alanine Aminotransferase 37 U/L (0-31); Anion Gap 14 (12-20); Aspartate Amino Transferase 33 U/L (5-31); Blood Urea Nitrogen 12 mg/dL (9-16); Calcium 9.4 mg/dL (8.4-10.2); Carbon Dioxide 26 mmol/L (22-29); Chloride 105 mmol/L (96-108); Cholesterol 144 mg/dL (<200); Estimated Glomerular Filt Rate > 60; Glucose Fasting 157 mg/dL (60-99); HDL Cholesterol 43 mg/dL (>40); LDL Cholesterol Calculated 73 mg/dL (<100); Potassium 3.6 mmol/L (3.3-5.1); Sodium 141 mmol/L (135-145); Triglycerides 144 mg/dL (<150)
== END 2023-07-12 06:10 | disposition home or self-care (01) ==
LOC: HO.HMGCLDS 06:09
PROVIDERS: PCP Internal Medicine; Visit Provider Internal Medicine
DX: E66.9 Obesity, unspecified (principal); E11.29 Type 2 diabetes mellitus with other diabetic kidney complication; R80.9 Proteinuria, unspecified; E78.2 Mixed hyperlipidemia; J30.2 Other seasonal allergic rhinitis; I10 Essential (primary) hypertension
CPT/HCPCS: 36415; 80048; 80061; 83036; 84450; 84460

== ENCOUNTER 2023-07-13 15:15 | Outpatient (AMB) | payer OTHER, SELFPAY ==
[2023-07-13 15:32] VITALS: BMI 36.0
--- NOTE | 2023-07-13 15:32 | A.OFFPC_ITS ---
Vital Signs 07/13/23 15:32 07/13/23 15:43 Height 5 ft 2 in 5 ft 2 in Weight 197 lb 197 lb BMI 36.0 36.0 BP 124/90 H Blood Pressure Location Rt brachial Position Sitting Pulse 84 Pulse Source Pulse Oximeter Pulse Oximetry (%) 97 Oxygen Delivery Method Room Air Intake Visit Reasons: Annual PE/OK Dr. 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 Required: No Accompanied by: Self / Same As Patient Allergies amoxicillin Allergy (Unknown, Verified 07/13/23 17:22) itchy, itching atorvastatin Allergy (Unknown, Verified 07/13/23 17:22) itchy, itching doxycycline Allergy (Unknown, Verified 07/13/23 17:22) hives Medication List - Last Reconciled 07/13/23 by Claire Castillo MD lisinopril 10 mg PO DAILY metformin 500 mg PO DAILY rosuvastatin 5 mg PO DAILY sertraline 50 mg PO DAILY Tobacco use date assessed: 02/21/23 Dental Screening Dental Screen Date: 07/13/23 Did you have a dental visit in the last 12 months?: Yes Did you have a dental problem in the last 6 months where you did not have access to dental care?: No Was dental information given to patient?: Patient has dentist HPI Annual PE/OK Dr. Castillo HPI Details 52-year-old lady here today for physical exam and follow-up on her diabetes meds lipids. She is up-to-date with her screening mammogram and colonoscopy, as well as her cervical cancer screening/Pap smear. Has been compliant with taking her medications and tries to follow recommended diet but admits to not getting any regular exercise apart from work due to recurrent pain still in her right ankle after surgery. [facility] Medical History Depression, controlled History of shingles Intra-articular loose body Right ankle instability Lesion of bone of ankle Vitamin D deficiency Dyslipidemia Obesity (BMI 30-39.9) Seasonal allergies Diabetes mellitus with microalbuminuria, without long-term current use of insulin Essential hypertension Type 2 diabetes mellitus without complication, without long-term current use of insulin Mixed dyslipidemia Hx of anxiety disorder Hx of gastroesophageal reflux (GERD) Hx of vertigo Surgical History H/O foot surgery Hx of section Family History Father Hypertension Kidney disease Mother Hypertension Stroke Brother No problems noted. Brother No problems noted. Brother No problems noted. Brother No problems noted. Sister No problems noted. Sister No problems noted. Sister No problems noted. Sister No problems noted. Son No problems noted. 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 occupational status: employed Current occupation: [employer] Gender identity: Female Cognitive needs: No Hearing needs: No Vision needs: No Female Reproductive History Menstrual Age of Menarche: 14 Questionnaire PHQ-9 Over the last 2 weeks, how often have you been bothered by any of the following problems? 1. Little interest or pleasure in doing things: not at all 2. Feeling down, depressed, or hopeless: not at all 3. Trouble falling or staying asleep, or sleeping too much: not at all 4. Feeling tired or having little energy: not at all 5. Poor appetite or overeating: not at all 6. Feeling bad about yourself - or that you are a failure or have let yourself or your family down: not at all 7. Trouble concentrating on things, such as reading the newspaper or watching television: not at all 8. Moving or speaking so slowly that other people could have noticed. Or the opposite - being so fidgety or restless that you have been moving around a lot more than usual: not at all 9. Thoughts that you would be better off or of hurting yourself in some way: not at all Total score: 0 Depression Screening Interpretation: Negative 24618 - PHQ-9 Billing: Yes Source: Developed by Drs. Tay Kendall, Monet Blandon, Ritesh Miner and colleagues, with an educational yifan from [employer]. Thrive Questionnaire Date Thrive assessed: 07/13/23 I am a: Patient What is your living situation today?: I have a steady place to live Within the past 12 months, did the food you bought not last and you didn't have the money to get more?: Never true Within the past 12 months, did you worry whether your food would run out before you got money to buy more?: Never true Do you have trouble paying for medicines?: No Do you have trouble getting transportation to medical appointments?: No Do you have trouble paying your heating and electricity bill?: No Do you have trouble taking care of your child, family member or friend?: No Do you have trouble with day-to-day activities such as bathing, preparing meals, shopping, managing finances, etc.?: No Are you currently unemployed and looking for a job?: No Are you interested in more education?: No Please select the resources that you would like help with: None Currently or been in a relationship where the following occur: no concerns reported EDI-7 AMB Questionnaire EDI-7 Date EDI - 7 assessed: 07/13/23 Feeling nervous, anxious, or on edge: 0 = Not at all Not being able to stop or control worryin = Not at all Worrying too much about different things: 0 = Not at all Trouble relaxin = Not at all Being so restless that it is hard to sit still: 0 = Not at all Becoming easily annoyed or irritable: 0 = Not at all Feeling afraid as if something awful might happen: 0 = Not at all Total EDI-7 score (0-4 normal; 5-9 mild; 10-14 moderate; 15-21 severe): 0 Source: Developed by Drs. Tay Kendall, Monet Blandon, Ritesh Miner and colleagues, with an educational yifan from [employer]. EDI-7 Assessment Billing EDI-7 Assessment Tool: EDI-7 Assessment 30897 Review of Systems Const Denies fatigue, Denies fever(s), Denies headache(s) and Denies weakness Eyes Denies change in vision ENT Denies dizziness, Denies headache(s), Denies nasal congestion, Denies nasal discharge and Denies sore throat Card Denies chest pain, Denies lightheadedness, Denies palpitations and Denies dyspnea Resp Denies chest congestion, Denies cough, Denies dyspnea and Denies wheezing GI Denies abdominal pain, Denies melena, Denies hematochezia, Denies change in bowel habits, Denies heartburn and Denies nausea Denies urinary frequency, Denies dysuria and Denies urinary urgency Musc Denies myalgias, Denies arthralgias and Denies muscle weakness Skin/Breast Denies breast swelling, Denies breast pain, Denies breast mass, Denies lesions and Denies rash Neuro Denies dizziness, Denies headache(s) and Denies weakness Psych Reports no additional complaints Endo Denies fatigue, Denies polydipsia, Denies polyuria and Denies palpitations Claudy/Lymph Denies easy bleeding and Denies easy bruising Aller/Immun Denies seasonal rhinorrhea and Denies wheezing Physical exam (Primary Care) Vital Signs: Last Vital Signs Pulse 84 07/13/23 15:43 BP 124/90 H 07/13/23 15:43 Pulse Ox 97 07/13/23 15:43 Oxygen Delivery Method Room Air 07/13/23 15:43 BMI result Body Mass Index 36.0 Tobacco/Smoking Status: Tobacco use Status Tobacco use date assessed 02/21/23 07/13/23 15:34 Patient Tobacco Use Status Never used Tobacco 07/13/23 15:34 e-Cigarette/Vaping Use Never Used 07/13/23 15:34 PHQ-9: PHQ-9 Score PHQ-9: Total score 0 07/13/23 16:27 Depression Screening Interpretation: Negative Thrive Assessment: Date of Thrive Assessment Date Thrive assessed 07/13/23 07/13/23 15:44 Currently or been in a relationship where the following occur: no concerns reported Const Other: Alert oriented x3, no acute distress noted ambulatory with normal gait Nutritional Appearance: obese Orientation/consciousness: patient oriented x3 [facility] Ears: hearing grossly normal bilaterally and EAC's normal General nose exam: Normal external nose present and No nasal discharge present Mouth: Normal oral and palatal mucosa present and moist mucous membranes Eyes General: appearance normal, both eyes and all related structures Neck Neck: Yes full ROM, Yes no lymphadenopathy and Yes supple Thyroid: Thyroid normal Chest Chest palpation & inspection: normal inspection of the chest and normal palpation of entire chest wall Breast/axilla palpation: normal palpation of the breasts Resp Auscultation: clear to auscultation bilaterally Cardio Other: S1-S2 present regular rate and rhythm GI Other: Normal bowel sounds, soft, nontender, no mass palpated General: Yes no CVA tenderness Back/Spine/Pelvis Back: no CVA tenderness and No back tenderness Skin General skin exam: no rashes or lesions noted Neuro General: patient oriented x3, tone normal, Normal light touch and pain sensation, no focal motor deficits and CN's II-XI intact bilaterally Extrem General: Yes full ROM, Yes no joint enlargement, Yes no pedal edema, Yes no calf tenderness and Yes normal gait Psych Appearance: grossly normal and well kempt Mental Status: mental status grossly normal Speech and movement: Normal speech and movement present Affect: normal affect Attitude: cooperative Thought process: Normal thought process present Thought content: Normal thought content present Results Reviewed Results Reviewed: Laboratory Tests 07/12/23 06:43 Estimat Average Glucose 134 Hemoglobin A1c % 6.3 H ENTERED: 07/12/23 SHELLY LE: ORDERED: Met Prof Fast, AST, ALT, Lipid Panel Test Result Flag Reference Site Sodium 141 135-145 mmol/L Potassium 3.6 3.3-5.1 mmol/L CL 105 96-108 mmol/L CO2 26 22-29 mmol/L Gap 14 12-20 BUN 12 9-16 mg/dL Creat 0.73 0.5-1.4 mg/dL EGFR > 60 NOTE: For -Micronesian individuals, multiply the result by 1.210. Chronic Kidney Disease: Estimated GFR < 60 mL/min/1.73m2 Severe Kidney Disease: Estimated GFR < 15 mL/min /1.73m2 FBS 157 H 60-99 mg/dL A fasting glucose of 126 mg/dl or greater on more than one occasion is considered diagnostic of diabetes. CA 9.4 8.4-10.2 mg/dL AST (GOT) 33 H 5-31 U/L ALT (GPT) 37 H 0-31 U/L Triglyceride 144 <150 mg/dL Desirable Triglyceride: less than 150 mg/dL Borderline High Triglyceride 150-199 mg/dL High Triglyceride: 200-499 mg/dL Very High Triglyceride: greater than or equal to 5OO mg/dL Cholesterol 144 <200 mg/dL Desirable Cholesterol: less than 200 mg/dL Borderline High Cholesterol: 200-239 mg/dL High Cholesterol: greater than 239 mg/dL LDL Calculated 73 <100 mg/dL Desirable LDL: less than 100 mg/dL Near Optimal/Above Optimal LDL: 110-129 mg/dL Borderline High LDL: 130-159 mg/dL High LDL: 160-189 mg/dL Very High LDL: greater than or equal to 190 mg/dL HDL 43 >40 mg/dL Desirable HDL: greater than 40 mg/dL Note: This HDL assay may give artificially low results in patients with liver disease. Assessment and Plan Assessment & Plan (1) Annual visit for general adult medical examination with abnormal findings: Code(s): Z00.01 - Encounter for general adult medical examination with abnormal findings Plan: Discuss recent fasting lab results with patient. Continue with regular dental visit every 6 months and annual eye exams. Take adequate calcium in diet and vitamin-D 3 at 2000 IU per cap once a day, in addition to weight-bearing exercises to help maintain good muscle tone and weight control. Instructed to do self-breast exam, and continue to get yearly mammogram, up-to-date with her cervical cancer screening, due again in 2024 and up-to-date with her screening colonoscopy. Reminded to get her COVID booster and flu shot date with her Tdap and Prevnar 20 (2) Depression, controlled: Code(s): F32.A - Depression, unspecified Plan: Continue on sertraline 50 mg daily (3) Obesity (BMI 30-39.9): Code(s): E66.9 - Obesity, unspecified Plan: Recommended focusing on improving your health instead of dieting. : Eat Med iterranean diet, limit foods high in fat, sugar, and calories, eat slowly, pay attention to portion sizes, plan your meals ahead of time, start regular physical activity 150 minutes of moderate intensity exercise or 90 minutes/week of vigorous exercise and increase water intake. (4) Diabetes mellitus with microalbuminuria, without long-term current use of insulin: Code(s): E11.29 - Type 2 diabetes mellitus with other diabetic kidney complication; R80.9 - Proteinuria, unspecified Plan: Recent lab results reviewed with patient, with sugar and hemoglobin A1c stable and at goal. Continue metformin 500 mg daily and continue to check fasting blood sugar at home, maintain log and bring to next appointment for review. Reinforced diabetic diet and regular exercise with patient. Counseled regarding importance of yearly diabetes retinopathy screening. Patient advised to inspect feet daily, for any signs of injury, callus or infection. Compliance with diet and regular exercise again stressed. Blood pressure goal is less than 130/80, goal LDL is less than 100 and goal hemoglobin A1c is less than 7% follow-up appointment made in--3-months, after fasting labs done. (5) Essential hypertension: Code(s): I10 - Essential (primary) hypertension Plan: Blood pressure at goal of less than 130/80. Continue with lisinopril 10 mg daily. Reinforced importance of following a low sodium diet, getting regular exercise, and lowering stress levels. (6) Mixed dyslipidemia: Code(s): E78.2 - Mixed hyperlipidemia Plan: Reviewed recent fasting lipid profile with patient with levels within normal limit . Continue with rosuvastatin 5 mg daily , in addition to adherence to low-cholesterol diet and regular exercise, at least 30 minutes 3 to 4 times a week. Advised patient to make healthy food choices, eat more fruits, vegetables, whole grains, wild caught fish and low-fat dairy. Limit amount of meat and fried or fatty food products, as well as processed foods and fast foods. Follow-up scheduled with repeat fasting lipid panel in 3 months. Orders: Orders Microalbumin, Random (w Creat) 09/29/23 E11.29 - Type 2 diabetes mellitus with other diabetic kidney complication, E66.9 - Obesity, unspecified, E78.2 - Mixed hyperlipidemia, F32.A - Depression, unspecified, I10 - Essential (primary) hypertension, R80.9 - Proteinuria, unspecified Alanine Aminotransferase 09/29/23 E11.29 - Type 2 diabetes mellitus with other diabetic kidney complication, E66.9 - Obesity, unspecified, E78.2 - Mixed hyperlipidemia, F32.A - Depression, unspecified, I10 - Essential (primary) hypertension, R80.9 - Proteinuria, unspecified Aspartate Amino Transferase 09/29/23 E11.29 - Type 2 diabetes mellitus with o ther diabetic kidney complication, E66.9 - Obesity, unspecified, E78.2 - Mixed hyperlipidemia, F32.A - Depression, unspecified, I10 - Essential (primary) hypertension, R80.9 - Proteinuria, unspecified Vitamin D 25-OH Total 09/29/23 E11.29 - Type 2 diabetes mellitus with other diabetic kidney complication, E66.9 - Obesity, unspecified, E78.2 - Mixed hyperlipidemia, F32.A - Depression, unspecified, I10 - Essential (primary) hypertension, R80.9 - Proteinuria, unspecified Basic Metabolic Panel Fasting 09/29/23 E11.29 - Type 2 diabetes mellitus with other diabetic kidney complication, E66.9 - Obesity, unspecified, E78.2 - Mixed hyperlipidemia, F32.A - Depression, unspecified, I10 - Essential (primary) hypertension, R80.9 - Proteinuria, unspecified Hemoglobin A1c 09/29/23 E11.29 - Type 2 diabetes mellitus with other diabetic kidney complication, E66.9 - Obesity, unspecified, E78.2 - Mixed hyperlipidemia, F32.A - Depression, unspecified, I10 - Essential (primary) hypertension, R80.9 - Proteinuria, unspecified Lipid Panel 09/29/23 E11.29 - Type 2 diabetes mellitus with other diabetic kidney complication, E66.9 - Obesity, unspecified, E78.2 - Mixed hyperlipidemia, F32.A - Depression, unspecified, I10 - Essential (primary) hypertension, R80.9 - Proteinuria, unspecified Coding Level of Care Code Est Pt [facility] [place] Care [id number]) Diagnoses Annual visit for general adult medical examination with abnormal findings Z00.01 Depression, controlled F32.A Obesity (BMI 30-39.9) E66.9 Diabetes mellitus with microalbuminuria, without long-term current use of insulin E11.29; R80.9 Essential hypertension I10 Mixed dyslipidemia E78.2 Additional Codes EDI-7 Assessment Billing - EDI-7 Assessment Tool: EDI-7 Assessment 44568 ([id number])
[2023-07-13 15:43] VITALS: BP 124/90; PULSE 84; O2SAT 97; BMI 36.0
== END 2023-07-13 16:32 | disposition home or self-care (01) ==
PROVIDERS: Visit Provider Internal Medicine
DX: Z00.01 Encounter for general adult medical examination with abnormal findings (principal); E11.29 Type 2 diabetes mellitus with other diabetic kidney complication; E66.9 Obesity, unspecified; Z68.36 Body mass index [BMI] 36.0-36.9, adult; I10 Essential (primary) hypertension; F32.A Depression, unspecified; R80.9 Proteinuria, unspecified; E78.2 Mixed hyperlipidemia
CPT/HCPCS: 99396

== ENCOUNTER 2023-07-21 09:52 | Outpatient (AMB) | payer OTHER, SELFPAY ==
[2023-07-21 10:52] VITALS: BP 138/90; PULSE 78; TEMP 36.6; O2SAT 97; BMI 36.0
--- NOTE | 2023-07-21 10:52 | AM.OFFWIN_ITS ---
Intake Vital Signs 07/21/23 10:52 Height 5 ft 2 in Weight 197 lb BMI 36.0 BP 138/90 H Blood Pressure Location Rt brachial Position Sitting Pulse 78 Pulse Source Pulse Oximeter Temp 97.9 F Temp Source Temporal Artery Scan Pulse Oximetry (%) 97 Intake Visit Reasons: EP, Left side ear swelling, sore throat (masked) Intake Note: pt is here for c/o left side ear pain/swelling with sore throat Patient Tobacco Use Status: Never used Tobacco Allergies amoxicillin Allergy (Unknown, Verified 07/21/23 10:52) itchy, itching atorvastatin Allergy (Unknown, Verified 07/21/23 10:52) itchy, itching doxycycline Allergy (Unknown, Verified 07/21/23 10:52) hives Do you need a note to return to daycare/school/sports/work: Yes HPI HPI Comments History of Present Illness Details This is a 52-year-old female who presents to the office today for sick visit. Patient complaining of left-sided ear pain with radiation into the postauricular region, sore throat, and a mild cough. her symptoms have been ongoing for the past 3 days. No fevers or chills. No chest pain or shortness of breath. No abdominal pain or nausea/vomiting/diarrhea. The patient feels as though the left side of her neck is swollen. [facility] Medical History Depression, controlled History of shingles Intra-articular loose body Right ankle instability Lesion of bone of ankle Vitamin D deficiency Dyslipidemia Obesity (BMI 30-39.9) Seasonal allergies Diabetes mellitus with microalbuminuria, without long-term current use of insulin Essential hypertension Type 2 diabetes mellitus without complication, without long-term current use of insulin Mixed dyslipidemia Hx of anxiety disorder Hx of gastroesophageal reflux (GERD) Hx of vertigo Surgical History H/O foot surgery Hx of section Family History Father Hypertension Kidney disease Mother Hypertension Stroke Brother No problems noted. Brother No problems noted. Brother No problems noted. Brother No problems noted. Sister No problems noted. Sister No problems noted. Sister No problems noted. Sister No problems noted. Son No problems noted. 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 Gender identity: Female Cognitive needs: No Hearing needs: No Vision needs: No Female Reproductive History Menstrual Age of Menarche: 14 Review of Systems Const All systems reviewed & are unremarkable except as noted in HPI and below Reports no additional complaints Eyes Reports no additional complaints ENT Reports no additional complaints Card Reports no additional complaints Resp Reports no additional complaints GI Reports no additional complaints Reports no additional complaints Musc Reports no additional complaints Skin/Breast Reports system reviewed and no additional complaints, except as documented Neuro Reports no additional complaints Psych Reports no additional complaints Endo Reports no additional complaints Claudy/Lymph Reports no additional complaints Aller/Immun Reports no additional complaints Physical Exam Vital Signs: Last Vital Signs Temp 97.9 F 07/21/23 10:52 Pulse 78 07/21/23 10:52 BP 138/90 H 07/21/23 10:52 Pulse Ox 97 07/21/23 10:52 BMI result Body Mass Index 36.0 Const Other: Vital signs reviewed. Constitutional: Non-toxic appearing. No acute distress. Well-developed and well-nourished. HEENT: Normocephalic and atraumatic. Erythema, edema, and bulging of left tympanic membrane as well as mild erythema and bulging of the right tympanic membrane. Mild postauricular tenderness to palpation but no swelling or erythema. Mild posterior oropharyngeal erythema without exudates, unilateral tonsillar edema, peritonsillar mass, or uvular deviation. Moist mucous membranes. Skin: Warm and dry. No rashes or lesions noted. Neck: Full and painless range of motion. No cervical lymphadenopathy. Cardio: Regular rate and rhythm. No murmurs, gallops, or rubs. No lower extremity edema. No JVD. Pulmonary: No respiratory distress. No accessory muscle usage. Clear to auscultation bilaterally without wheezing, crackles, or rhonchi. Gastrointestinal: Soft, nontender, and nondistended in all 4 quadrants. Normoactive bowel sounds in all 4 quadrants. Genitourinary: No CVA tenderness. Musculoskeletal: Normal range of motion in joints throughout the body. No deformity or other signs of injury. Neuro: Alert and oriented x4. Cranial nerves 2-12 grossly intact. No focal deficits appreciated. Psych: Normal mood and affect. Results AMB Rapid Strep AMB Rapid Strep Negative Last Edit by Francisco Javier Dior CMA on 07/21/23 11 :01 Results Reviewed Results Reviewed: Laboratory Last Values Strep Scn Rapid Clinic Negative 07/21/23 10:59 Assessment & Plan Assessment & Plan (1) Otitis media of left ear: Code(s): H66.92 - Otitis media, unspecified, left ear Plan: This is a 52-year-old female presenting to the office complaining of left-sided ear pain, sore throat, and a sensation of left neck swelling. On PE, there is erythema, edema, and bulging of left tympanic membrane as well as mild erythema and bulging of the right tympanic membrane. There is mild left postauricular tenderness to palpation but no swelling or erythema or mass.Patient is overall nontoxic appearing. Her vital signs are stable. No evidence of a systemic infection at this time. I did raise concern for peritonsillar abscess versus acute mastoiditis given the mastoid tenderness to palpation and the sensation of swelling of her left side of the neck though there is no appreciable swelling of the left neck on physical examination. Explained to the patient that these would require more diagnostic imaging and possibly IV antibiotics that need to be done in the emergency room. I did recommend patient proceed to the emergency room for further evaluation and management but she declines at this time. Patient is alert and oriented x4 and she is aware of the risks of these infec tions including bacteremia, sepsis, and . In my opinion the patient has the competence to make her own medical decisions. patient would prefer not to go to the emergency room at this time. I will treat the patient with p.o. Azithromycin 500 mg today followed by 250 mg daily x4 days given her allergy to amoxicillin and doxycycline for treatment of acute otitis media. Patient was instructed to proceed directly to the emergency room at the first sign of any systemic infection including fever/ chills or general malaise for any persistent/worsening symptoms. Patient verbalizes her understanding and she is in agreement with the plan. (2) Pharyngitis: Code(s): J02.9 - Acute pharyngitis, unspecified Plan: Patient presenting with signs and symptoms most consistent with acute viral pharyngitis. Rapid strep negative. She has posterior pharyngeal erythema but no appreciable unilateral peritonsillar mass or hypertrophy and no appreciable left sided neck swelling. No appreciable pharyngeal exudate. Again, I did raise the concern of peritonsillar abscess given her sensation of left-sided neck swelling but I have very low suspicion for [employer] given no appreciable neck swelling on physical examination in no unilateral tonsillar hypertrophy, edema, or peritonsillar mass noted. Recommended symptomatic management including rest, increased fluids, advil/tylenol for pain/fever, salt water gargles, and over the counter throat lozenges/decongestants. Patient advised to follow up here or go to the emergency room for worsening/persistent symptoms. Patient verbalized understanding and is agreeable with the plan. Orders: Orders AMB Rapid Strep Screen Today Z13.9 - Encounter for screening, unspecified Medications: New azithromycin For 250 mg dose pack: take 500 mg today (day 1), then 250 mg for 4 days (days 2-5) PO 6 tabs 0RF Coding Level of Care Code Est Pt Level 3 (43483) Diagnoses Otitis media of left ear H66.92 Pharyngitis J02.9
== END 2023-07-21 11:26 | disposition home or self-care (01) ==
PROVIDERS: PCP Internal Medicine; Visit Provider Physician Assistant Medical
DX: H66.92 Otitis media, unspecified, left ear (principal); J02.9 Acute pharyngitis, unspecified
CPT/HCPCS: 87880; 99213

== ENCOUNTER 2023-10-13 06:17 | Outpatient (REF) | payer OTHER, SELFPAY ==
[2023-10-13 11:39] LABS: Estimated Average Glucose 143 mg/dL; Hemoglobin A1c % 6.6 % (<6.0)
[2023-10-13 12:11] LABS: Alanine Aminotransferase 68 U/L (0-31); Anion Gap 12 (12-20); Aspartate Amino Transferase 49 U/L (5-31); Blood Urea Nitrogen 13 mg/dL (9-16); Calcium 9.4 mg/dL (8.4-10.2); Carbon Dioxide 29 mmol/L (22-29); Chloride 102 mmol/L (96-108); Cholesterol 160 mg/dL (<200); Estimated Glomerular Filt Rate > 60; Glucose Fasting 164 mg/dL (60-99); HDL Cholesterol 44 mg/dL (>40); LDL Cholesterol Calculated 84 mg/dL (<100); Potassium 3.3 mmol/L (3.3-5.1); Sodium 140 mmol/L (135-145); Triglycerides 163 mg/dL (<150)
[2023-10-13 12:13] LABS: Vitamin D 25-OH Total 61.1 ng/mL (>30)
[2023-10-13 12:19] LABS: Creatinine Urine 216.46 mg/dL; Microalbum/Creatinine Ratio Ur 138.1 ug/mg cr (<30)
== END 2023-10-13 06:18 | disposition home or self-care (01) ==
LOC: HO.HMGCLDS 06:17
PROVIDERS: PCP Internal Medicine; Visit Provider Internal Medicine
DX: F32.A Depression, unspecified (principal); E66.9 Obesity, unspecified; R80.9 Proteinuria, unspecified; I10 Essential (primary) hypertension; E78.2 Mixed hyperlipidemia; E11.29 Type 2 diabetes mellitus with other diabetic kidney complication
CPT/HCPCS: 36415; 80048; 80061; 82043; 82306; 82570; 83036; 84450; 84460

== ENCOUNTER 2023-10-19 15:48 | Outpatient (AMB) | payer OTHER, SELFPAY ==
[2023-10-19 16:05] VITALS: BP 160/82; PULSE 83; O2SAT 97
--- NOTE | 2023-10-19 16:05 | MHC.PC.OV ---
Vital Signs 10/19/23 16:05 10/19/23 16:25 Height 5 ft 2 in BMI Reason not done Patient refused/unable BP 160/82 H 160/95 H Blood Pressure Location Rt brachial Lt brachial Position Sitting Sitting Pulse 83 Pulse Source Pulse Oximeter Pulse Oximetry (%) 97 Oxygen Delivery Method Room Air Intake Visit Reasons: 3 month fu Intake Note: pt is here to follow up for her lab results Allergies amoxicillin Allergy (Unknown, Verified 10/19/23 16:26) itchy, itching atorvastatin Allergy (Unknown, Verified 10/19/23 16:26) itchy, itching doxycycline Allergy (Unknown, Verified 10/19/23 16:26) hives Medication List - Last Reconciled 10/19/23 by Claire Castillo MD lisinopril 10 mg PO DAILY metformin 500 mg PO DAILY rosuvastatin 5 mg PO DAILY sertraline 50 mg PO DAILY Tobacco use date assessed: 10/19/23 Dental Screening Dental Screen Date: 10/19/23 Did you have a dental visit in the last 12 months?: Yes Did you have a dental problem in the last 6 months where you did not have access to dental care?: No Was dental information given to patient?: Patient has dentist HPI 3 month fu HPI Details 52-year-old lady with diabetes mellitus, dyslipidemia, obesity, hypertension and depression, here today for follow-up. She has been compliant with her medications, but admits to being noncompliant with her diet and has not been getting any regular exercise. She just came from [place] prior to this visit and states that she has been eating a lot of salty foods, blood pressure today is markedly elevated as compared to last check. Recent fasting labs showed hemoglobin A1c at 6.6%, and fasting lipids showing her triglycerides are elevated. She has had her COVID vaccine but has not yet had her flu shot, would like to get 1 today. She has been feeling well with no complaints of except for recurrent pain stiffness in her right foot [facility] Medical History Depression, controlled History of shingles Intra-articular loose body Right ankle instability Lesion of bone of ankle Vitamin D deficiency Dyslipidemia Obesity (BMI 30-39.9) Seasonal allergies Diabetes mellitus with microalbuminuria, without long-term current use of insulin Essential hypertension Type 2 diabetes mellitus without complication, without long-term current use of insulin Mixed dyslipidemia Hx of anxiety disorder Hx of gastroesophageal reflux (GERD) Hx of vertigo Surgical History H/O foot surgery Hx of section Family History Father Hypertension Kidney disease Mother Hypertension Stroke Brother No problems noted. Brother No problems noted. Brother No problems noted. Brother No problems noted. Sister No problems noted. Sister No problems noted. Sister No problems noted. Sister No problems noted. Son No problems noted. 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 Depression Screening Interpretation: Negative Depression Screening Done: Yes 83807 - PHQ-9 Billing: Yes Source: Developed by Drs. Tay Kendall, Ritesh Cunningham and colleagues, with an educational yifan from [employer]. Thrive Questionnaire Date Thrive assessed: 07/13/23 Currently or been in a relationship where the following occur: no concerns reported EDI-7 AMB Questionnaire EDI-7 Date EDI - 7 assessed: 07/13/23 Source: Developed by Drs. Tay Kendall, Ritesh Cunningham and colleagues, with an educational yifan from [employer]. Review of Systems Const Denies fatigue, Denies fever(s), Denies headache(s) and Denies weakness Eyes Denies change in vision ENT Denies dizziness, Denies headache(s), Denies nasal congestion, Denies nasal discharge and Denies sore throat Card Denies chest pain, Denies lightheadedness, Denies palpitations and Denies dyspnea Resp Denies chest congestion, Denies cough, Denies dyspnea and Denies wheezing GI Denies abdominal pain, Denies melena, Denies hematochezia, Denies change in bowel habits, Denies heartburn and Denies nausea Denies urinary frequency, Denies dysuria and Denies urinary urgency Musc Denies myalgias, Denies arthralgias and Denies muscle weakness Skin/Breast Denies breast swelling, Denies breast pain, Denies breast mass, Denies lesions and Denies rash Neuro Denies dizziness, Denies headache(s) and Denies weakness Psych Reports no additional complaints Endo Denies fatigue, Denies polydipsia, Denies polyuria and Denies palpitations Claudy/Lymph Denies easy bleeding and Denies easy bruising Aller/Immun Denies seasonal rhinorrhea and Denies wheezing Physical exam (Primary Care) Vital Signs: Last Vital Signs Pulse 83 10/19/23 16:05 BP 160/95 H 10/19/23 16:25 Pulse Ox 97 10/19/23 16:05 Oxygen Delivery Method Room Air 10/19/23 16:05 Tobacco/Smoking Status: Tobacco use Status Tobacco use date assessed 10/19/23 10/19/23 16:13 Patient Tobacco Use Status Never used Tobacco 10/19/23 16:05 e-Cigarette/Vaping Use Never Used 10/19/23 16:05 Depression Screening Interpretation: Negative Thrive Assessment: Date of Thrive Assessment Date Thrive assessed 07/13/23 10/19/23 16:05 Currently or been in a relationship where the following occur: no concerns reported Const Other: Alert oriented x3, no acute distress noted ambulatory with normal gait Nutritional Appearance: obese Orientation/consciousness: patient oriented x3 [facility] Ears: hearing grossly normal bilaterally and EAC's normal General nose exam: Normal external nose present and No nasal discharge present Mouth: Normal oral and palatal mucosa present and moist mucous membranes Eyes General: appearance normal, both eyes and all related structures Neck Neck: Yes full ROM, Yes no lymphadenopathy and Yes supple Thyroid: Thyroid normal Chest Chest palpation & inspection: normal inspection of the chest and normal palpation of entire chest wall Breast/axilla palpation: normal palpation of the breasts Resp Auscultation: clear to auscultation bilaterally Cardio Other: S1-S2 present regular rate and rhythm GI Other: Normal bowel sounds, soft, nontender, no mass palpated General: Yes no CVA tenderness Back/Spine/Pelvis Back: no CVA tenderness and No back tenderness Skin General skin exam: no rashes or lesions noted Neuro General: patient oriented x3, tone normal, Normal light touch and pain sensation, no focal motor deficits and CN's II-XI intact bilaterally Extrem General: Yes full ROM, Yes no joint enlargement, Yes no pedal edema, Yes no calf tenderness and Yes normal gait Psych Appearance: grossly normal and well kempt Mental Status: mental status grossly normal Speech and movement: Normal speech and movement present Affect: normal affect Attitude: cooperative Thought process: Normal thought process present Thought content: Normal thought content present Office Procedures Flu Questionnaire Does the patient have a severe egg allergy?: No Does the patient have severe life threatening allergies?: No Does the patient have a fever or illness today?: No Has the patient ever had Guillain-[place] Syndrome?: No Has the patient ever had any past reaction to a flu shot?: No Immunizations flu vacc [id number] 6mos up(PF) 60 mcg(15 mcgx4)/0.5 mL IM syringe Performing Provider: Claire Castillo MD Performing Location: [facility] Administered by: Radha Gil CMA on 10/19/23 16:47 Dose Route Admin Location Dispensed Lot Number Expiration Date NDC National Service Officer 0.5 mL IM Right Deltoid 0.5 mL [id number] 04/28/24 56927-215-24 [employer] VIS Given Date VIS Provided VIS Publication Date 10/19/23 Single Vaccine 21 Eligibility Eligibility Date Funding Source Not [facility] Eligible 10/19/23 Private Results Reviewed Results Reviewed: Laboratory Tests 10/13/23 06:29 Estimat Average Glucose 143 Hemoglobin A1c % 6.6 H Urine Creatinine 216.46 Urine Microalbumin 299.0 Microalb/Creat Ratio 138.1 H Name: Leandro Núñez Age/Sex: 52/F : 1970 Unit#: [id number] Attend Dr: Claire Castillo MD Re10/13/23 Status: DEP REF Location: [facility] Disch: SPEC : [id number] DAVID: 10/13/23 STATUS: COMP REQ : [id number] RECD: 10/13/23-[address]: Claire Castillo MD COMP: 10/13/23-1212 ENTERED: 10/13/[address] [facility] [address]: ORDERED: Met Prof Fast, AST, ALT, Lipid Panel, Vitamin D 25-OH Test Result Flag Reference Site Sodium 140 135-145 mmol/L Potassium 3.3 3.3-5.1 mmol/L CL 102 96-108 mmol/L CO2 29 22-29 mmol/L Gap 12 12-20 BUN 13 9-16 mg/dL Creat 0.79 0.5-1.4 mg/dL EGFR > 60 NOTE: For -[place]ones[place] individuals, multiply the result by 1.210. Chronic Kidney Disease: Estimated GFR < 60 mL/min/1.73m2 Severe Kidney Disease: Estimated GFR < 15 mL/min/1.73m2 FBS 164 H 60-99 mg/dL A fasting glucose of 126 mg/dl or greater on more than one occasion is considered diagnostic of diabetes. CA 9.4 8.4-10.2 mg/dL AST (GOT) 49 H 5-31 U/L ALT (GPT) 68 H 0-31 U/L Triglyceride 163 H <150 mg/dL Desirable Triglyceride: less than 150 mg/dL Borderline High Triglyceride 150-199 mg/dL High Triglyceride: 200-499 mg/dL Very High Triglyceride: greater than or equal to 5OO mg/dL Cholesterol 160 <200 mg/dL Desirable Cholesterol: less than 200 mg/dL Borderline High Cholesterol: 200-239 mg/dL High Cholesterol: greater than 239 mg/dL LDL Calculated 84 <100 mg/dL Desirable LDL: less than 100 mg/dL Near Optimal/Above Optimal LDL: 110-129 mg/dL Borderline High LDL: 130-159 mg/dL High LDL: 160-189 mg/dL Very High LDL: greater than or equal to 190 mg/dL HDL 44 >40 mg/dL Desirable HDL: greater than 40 mg/dL Note: This HDL assay may give artificially low results in patients with liver disease. Vit D 25-OH Tot 61.1 >30 ng/mL Health Based Reference Values* < 20 ng/mL Deficient 20-30 ng/mL Insufficient > 30 ng/mL Sufficient Assessment and Plan Assessment & Plan (1) Mixed dyslipidemia: Code(s): E78.2 - Mixed hyperlipidemia Plan: Reviewed recent fasting lipid profile with patient with levels at goal except for mildly elevated triglycerides . Continue with rosuvastatin 5 mg daily , in addition to adherence to low-cholesterol diet and regular exercise, at least 30 minutes 3 to 4 times a week. Advised patient to make healthy food choices, eat more fruits, vegetables, whole grains, wild caught fish and low-fat dairy. Limit amount of meat and fried or fatty food products, as well as processed foods and fast foods. Follow-up scheduled with repeat fasting lipid panel in 4 months. (2) Essential hypertension: Code(s): I10 - Essential (primary) hypertension Plan: Blood pressure elevated today, likely due to increased salt intake after recent gathering. Increased temporarily her lisinopril dose to 20 mg daily, Blood pressure goal is less than 130/80. . Reinforced importance of following a low sodium diet, getting regular exercise, and lowering stress levels. Schedule nurse visit in 1-2 weeks to check blood pressure after adjusting lisinopril dose to 20 mg daily. (3) Diabetes mellitus with microalbuminuria, without long-term current use of insulin: Code(s): E11.29 - Type 2 diabetes mellitus with other diabetic kidney complication; R80.9 - Proteinuria, unspecified Plan: Hemoglobin A1c today is at 6.6%, continue with metformin 500 mg once a day, continue to check fasting blood sugar at home, maintain log and bring to next appointment for review. Reinforced diabetic diet and regular exercise with patient. Counseled regarding importance of yearly diabetes retinopathy screening. Patient advised to inspect feet daily, for any signs of injury, callus or infection. Compliance with diet and regular exercise again stressed. Blood pressure goal is less than 130/80, goal LDL is less than 100 and goal hemoglobin A1c is less than 7% follow-up appointment made in-4--months, after fasting labs done. Flu shot given today (4) Depression, controlled: Code(s): F32.A - Depression, unspecified Plan: Continue sertraline 50 mg once a day Orders: Orders Hemoglobin A1c 02/10/24 E11.29 - Type 2 diabetes mellitus with other diabetic kidney complication, E78.2 - Mixed hyperlipidemia, F32.A - Depression, unspecified, I10 - Essential (primary) hypertension, R80.9 - Proteinuria, unspecified Vitamin D 25-OH Total 02/10/24 E11.29 - Type 2 diabetes mellitus with other diabetic kidney complication, E78.2 - Mixed hyperlipidemia, F32.A - Depression, unspecified, I10 - Essential (primary) hypertension, R80.9 - Proteinuria, unspecified Alanine Aminotransferase 02/10/24 E11.29 - Type 2 diabetes mellitus with other diabetic kidney complication, E78.2 - Mixed hyperlipidemia, F32.A - Depression, unspecified, I10 - Essential (primary) hypertension, R80.9 - Proteinuria, unspecified Aspartate Amino Transferase 02/10/24 E11.29 - Type 2 diabetes mellitus with other diabetic kidney complication, E78.2 - Mixed hyperlipidemia, F32.A - Depression, unspecified, I10 - Essential (primary) hypertension, R80.9 - Proteinuria, unspecified Microalbumin, Random (w Creat) 02/10/24 E11.29 - Type 2 diabetes mellitus with other diabetic kidney complication, E78.2 - Mixed hyperlipidemia, F32.A - Depression, unspecified, I10 - Essential (primary) hypertension, R80.9 - Proteinuria, unspecified Lipid Panel 02/10/24 E11.29 - Type 2 diabetes mellitus with other diabetic kidney complication, E78.2 - Mixed hyperlipidemia, F32.A - Depression, unspecified, I10 - Essential (primary) hypertension, R80.9 - Proteinuria, unspecified Basic Metabolic Panel Fasting 02/10/24 E11.29 - Type 2 diabetes mellitus with other diabetic kidney complication, E78.2 - Mixed hyperlipidemia, F32.A - Depression, unspecified, I10 - Essential (primary) hypertension, R80.9 - Proteinuria, unspecified Influenza [id number] Immunization Today Z23 - Encounter for immunization Medications: Changed From lisinopril 10 mg PO DAILY 90 tabs 3RF To lisinopril 20 mg (2 x 10 mg) PO DAILY 90 tabs 3RF Coding Level of Care Code Est Pt Level 4 (08294) Diagnoses Mixed dyslipidemia E78.2 Essential hypertension I10 Diabetes mellitus with microalbuminuria, without long-term current use of insulin ; R80.9 Depression, controlled F32.A
[2023-10-19 16:25] VITALS: BP 160/95
== END 2023-10-19 16:50 | disposition home or self-care (01) ==
PROVIDERS: PCP Internal Medicine; Visit Provider Internal Medicine
DX: E78.2 Mixed hyperlipidemia (principal); I10 Essential (primary) hypertension; E11.29 Type 2 diabetes mellitus with other diabetic kidney complication; R80.9 Proteinuria, unspecified; F32.A Depression, unspecified; Z23 Encounter for immunization
CPT/HCPCS: 90471; 90686; 99214

== ENCOUNTER 2023-11-22 08:19 | Outpatient (AMB) | payer OTHER, SELFPAY ==
--- NOTE | 2023-11-22 08:47 | AM.OFFWIN_ITS ---
Intake Vital Signs 11/22/23 08:49 Height 5 ft 2 in Weight 193 lb BMI 35.3 BP 140/88 H Blood Pressure Location Lt brachial Position Sitting Pulse 69 Pulse Source Pulse Oximeter Temp 97.0 F Temp Source Temporal Artery Scan Pulse Oximetry (%) 98 Oxygen Delivery Method Room Air Intake Visit Reasons: EP Cold Symptoms pain under jaw (masked) Intake Note: pt is cold symptoms pain under jaw started monday Patient Tobacco Use Status: Never used Tobacco Allergies amoxicillin Allergy (Unknown, Verified 11/22/23 09:21) itchy, itching atorvastatin Allergy (Unknown, Verified 11/22/23 09:21) itchy, itching doxycycline Allergy (Unknown, Verified 11/22/23 09:21) hives Medication List - Last Reconciled 11/22/23 by Herminio Knott MD lisinopril-hydrochlorothiazide 20-12.5 mg 1 tab PO DAILY metformin 500 mg PO DAILY omeprazole 40 mg PO DAILY PRN rosuvastatin 5 mg PO DAILY sertraline 50 mg PO DAILY Do you need a note to return to daycare/school/sports/work: Yes HPI EP Cold Symptoms pain under jaw (masked) HPI Details Patient presents for a sick visit. Reporting symptoms of sinus congestion, sore throat and difficulty swallowing. Low-grade fever. No family member is sick. No recent travel. Patient reports symptoms of malaise and fatigue. 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 Nonsmoker. [facility]LY [facility] Medical History Depression, controlled History of shingles Intra-articular loose body Right ankle instability Lesion of bone of ankle Vitamin D deficiency Dyslipidemia Obesity (BMI 30-39.9) Seasonal allergies Diabetes mellitus with microalbuminuria, without long-term current use of insulin Essential hypertension Type 2 diabetes mellitus without complication, without long-term current use of insulin Mixed dyslipidemia Hx of anxiety disorder Hx of gastroesophageal reflux (GERD) Hx of vertigo Surgical History H/O foot surgery Hx of section Family History Father Hypertension Kidney disease Mother Hypertension Stroke Brother No problems noted. Brother No problems noted. Brother No problems noted. Brother No problems noted. Sister No problems noted. Sister No problems noted. Sister No problems noted. Sister No problems noted. Son No problems noted. 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 occupational status: employed Current occupation: [employer] Gender identity: Female Cognitive needs: No Hearing needs: No Vision needs: No Female Reproductive History Menstrual Age of Menarche: 14 Physical Exam Vital Signs: Last Vital Signs Temp 97.0 F 11/22/23 08:49 Pulse 69 11/22/23 08:49 BP 140/88 H 11/22/23 08:49 Pulse Ox 98 11/22/23 08:49 Oxygen Delivery Method Room Air 11/22/23 08:49 BMI result Body Mass Index 35.3 Const General: cooperative and healthy appearing Nutritional Appearance: well nourished Orientation/consciousness: patient oriented x3 Limitations: no limitations HEENT Head: Yes normal to inspection Eyes General: appearance normal, both eyes and all related structures Neck Neck: Yes normal visual inspection Chest Chest palpation & inspection: normal palpation of entire chest wall Resp Effort & Inspection: normal respiratory effort Neuro General: patient oriented x3 Results AMB Rapid Strep AMB Rapid Strep Negative Last Edit by Francisco Javier Dior CMA on 11/22/23 09 :02 Results Reviewed Results Reviewed: Laboratory Last Values Strep Scn Rapid Clinic Negative 11/22/23 09:01 Assessment & Plan Assessment & Plan (1) Upper respiratory tract infection: Code(s): J06.9 - Acute upper respiratory infection, unspecified Plan: Antibiotics ordered. Increase fluid intake. Tylenol for aches and pains. If symptoms worsen, follow-up here for a recheck. Orders: Orders AMB Rapid Strep Screen Today Z13.9 - Encounter for screening, unspecified Coding Level of Care Code Est Pt Level 3 (20169) Diagnoses Upper respiratory tract infection J06.9
[2023-11-22 08:49] VITALS: BP 140/88; PULSE 69; TEMP 36.1; O2SAT 98; BMI 35.3
== END 2023-11-22 09:36 | disposition home or self-care (01) ==
PROVIDERS: PCP Internal Medicine; Visit Provider Internal Medicine
DX: J06.9 Acute upper respiratory infection, unspecified (principal); J02.9 Acute pharyngitis, unspecified
CPT/HCPCS: 87880; 99213

== ENCOUNTER 2023-12-09 09:57 | Outpatient (REF) | payer OTHER, SELFPAY | END 2023-12-09 09:58 | disposition home or self-care (01) | LOC: HO.MAMMO 09:57 | PROVIDERS: PCP Internal Medicine; Visit Provider Internal Medicine | DX: Z12.31 Encounter for screening mammogram for malignant neoplasm of breast (principal) | CPT/HCPCS: 77063; 77067 ==

== ENCOUNTER → 2023-12-09 10:15 | Outpatient (BNV) | payer OTHER, SELFPAY | PROVIDERS: PCP Internal Medicine; Visit Provider Radiology Diagnostic Radiology | DX: Z12.31 Encounter for screening mammogram for malignant neoplasm of breast (principal) | CPT/HCPCS: 77063; 77067 ==

== ENCOUNTER 2023-12-19 14:18 | Outpatient (AMB) | payer OTHER, SELFPAY ==
--- NOTE | 2023-12-19 14:21 | MHC.OFFVIS ---
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 She is doing well with no concerns. Attempting to eat a healthy diet with calcium and vitamin D and stays active with walking. Currently sexually active w/. Denies any irritation. She reports dryness. Last pap smear; 2019. Last mammogram; 2023-report pending read. Colonoscopy is UTD. Denies any family history of breast, ovarian or colon cancer. [facility] Medical History Depression, controlled History of shingles Intra-articular loose body Right ankle instability Lesion of bone of ankle Vitamin D deficiency Dyslipidemia Obesity (BMI 30-39.9) Seasonal allergies Diabetes mellitus with microalbuminuria, without long-term current use of insulin Essential hypertension Type 2 diabetes mellitus without complication, without long-term current use of insulin Mixed dyslipidemia Hx of anxiety disorder Hx of gastroesophageal reflux (GERD) Hx of vertigo Surgical History H/O foot surgery Hx of section Family History Father Hypertension Kidney disease Mother Hypertension Stroke Brother No problems noted. Brother No problems noted. Brother No problems noted. Brother No problems noted. Sister No problems noted. Sister No problems noted. Sister No problems noted. Sister No problems noted. Son No problems noted. 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 Gender identity: Female Cognitive needs: No Hearing needs: No Vision needs: No Female Reproductive History Menstrual Age of Menarche: 14 Menopause type: natural Total pregnancies: 2 Full term: 1 Number of Living Children: 1 Ab spontaneous: 1 Date of last pap smear: 05/27/20 (neg pap and hpv) Date of Mammogram: 12/09/23 Review of Systems Const All systems reviewed & are unremarkable except as noted in HPI and below Reports as per HPI Eyes Reports no additional complaints ENT Reports no additional complaints Card Reports no additional complaints Resp Reports no additional complaints GI Reports as per HPI and Reports no additional complaints Reports as per HPI Musc Reports no additional complaints Skin/Breast Reports as per HPI Neuro Reports no additional complaints Psych Reports no additional complaints Endo Reports no additional complaints Claudy/Lymph Reports no additional complaints Aller/Immun Reports no additional complaints Physical Exam Vital Signs: Last Vital Signs BP 124/84 12/19/23 14:23 BMI result Body Mass Index 34.7 Const General: cooperative, healthy appearing, no acute distress, well developed and alert Orientation/consciousness: patient oriented x3 HEENT Head: Yes normal to inspection Eyes General: appearance normal, both eyes and all related structures Neck Neck: Yes normal visual inspection Thyroid: Thyroid normal Chest Chest palpation & inspection: normal inspection of the chest and other (no puckering, dimpling, peau de orange, retraction, discharge, masses) Breast/axilla inspection: normal inspection of the breasts Breast/axilla palpation: normal palpation of the breasts Resp Effort & Inspection: normal respiratory effort GI Inspection: Yes normal to inspection Palpation (GI): Soft to palpation Rectal Exam - Female: deferred General: Yes bladder normal to palpation External Female Exam: normal external appearance and normal appearance of the urethra Speculum Exam - Vagina: normal appearance of the vagina, normal palpation and normal vaginal discharge Speculum Exam - Cervix: normal appearance of the cervix and normal palpation Bimanual exam- vagina & uterus: normal bimanual exam, normal palpation, uterine size normal, bladder normal to palpation, normal palpation and non-tender Bimanual Exam- Adnexa, other: no masses Skin General skin exam: no rashes or lesions noted Rashes: no rashes Neuro General: patient oriented x3 Cognition (Neuro): normal cognition Extrem General: Yes normal to inspection Psych Attitude: cooperative Thought process: Normal thought process present Assessment & Plan Assessment & Plan (1) Encounter for well woman exam with routine gynecological exam: Code(s): Z01.419 - Encounter for gynecological examination (general) (routine) without abnormal findings Plan Discussed: Current recommendations for pap smears per ASCCP guidelines. Breast awareness, periodic self breast exams and yearly mammogram. Maintain a healthy lifestyle, well balanced diet including Calcium 1,200 mg and Vitamin D 600 IU daily, and routine exercise. Vaginal moisturizers including Replens. In lubricant: Replens, [place] jelly or [place]. Contact the office with any postmenopausal bleeding. Patient verbalizes understanding and agrees to the plan of care. She was given opportunity to ask questions and all questions were answered to the best of my ability. RTO in 1 year for annual mobile product manager exam. This note is constructed using voice recognition software. While every effort has been made to ensure accuracy, processor grain errors may have been included. Coding Level of Care Code Est Pt Prev Care 40-64y(03549) Diagnoses Encounter for well woman exam with routine gynecological exam Z01.419
[2023-12-19 14:23] VITALS: BP 124/84; BMI 34.7
== END 2023-12-19 14:59 | disposition home or self-care (01) ==
LOC: HO.HWS 14:18
PROVIDERS: PCP Internal Medicine; Visit Provider Advanced Practice Midwife
DX: Z01.419 Encounter for gynecological examination (general) (routine) without abnormal findings (principal)
CPT/HCPCS: 99396

== ENCOUNTER → 2023-12-19 14:18 | Outpatient (BNVA) | payer OTHER, SELFPAY | PROVIDERS: PCP Internal Medicine; Visit Provider Advanced Practice Midwife ==

== ENCOUNTER 2024-02-15 06:13 | Outpatient (REF) | payer OTHER, SELFPAY ==
[2024-02-15 10:54] LABS: Estimated Average Glucose 143 mg/dL; Hemoglobin A1c % 6.6 % (<6.0)
[2024-02-15 10:56] LABS: Alanine Aminotransferase 60 U/L (0-31); Anion Gap 13 (12-20); Aspartate Amino Transferase 45 U/L (5-31); Blood Urea Nitrogen 13 mg/dL (9-16); Calcium 9.5 mg/dL (8.4-10.2); Carbon Dioxide 31 mmol/L (22-29); Chloride 103 mmol/L (96-108); Cholesterol 176 mg/dL (<200); Estimated Glomerular Filt Rate > 60; Glucose Fasting 144 mg/dL (60-99); HDL Cholesterol 44 mg/dL (>40); LDL Cholesterol Calculated 102 mg/dL (<100); Potassium 3.9 mmol/L (3.3-5.1); Sodium 143 mmol/L (135-145); Triglycerides 152 mg/dL (<150)
[2024-02-15 11:00] LABS: Vitamin D 25-OH Total 47.5 ng/mL (>30)
[2024-02-15 11:29] LABS: Creatinine Urine 121.17 mg/dL; Microalbum/Creatinine Ratio Ur 51.9 ug/mg cr (<30)
== END 2024-02-15 06:14 | disposition home or self-care (01) ==
LOC: HO.HMGCLDS 06:13
PROVIDERS: PCP Internal Medicine; Visit Provider Internal Medicine
DX: E78.2 Mixed hyperlipidemia (principal); I10 Essential (primary) hypertension; E11.29 Type 2 diabetes mellitus with other diabetic kidney complication; R80.9 Proteinuria, unspecified; F32.A Depression, unspecified
CPT/HCPCS: 36415; 80048; 80061; 82043; 82306; 82570; 83036; 84450; 84460

== ENCOUNTER 2024-02-20 09:59 | Outpatient (AMB) | payer OTHER, SELFPAY ==
--- NOTE | 2024-02-20 10:43 | A.OFFPC_ITS ---
Vital Signs 02/20/24 10:46 Height 5 ft 2 in BMI Reason not done Patient refused/unable BP 148/92 H Blood Pressure Location Lt brachial Position Sitting Pulse 82 Pulse Source Pulse Oximeter Pulse Oximetry (%) 96 Oxygen Delivery Method Room Air Intake Visit Reasons: f/u labs Intake Note: Pt is here today to follow up on recent labs. Allergies amoxicillin Allergy (Unknown, Verified 02/26/24 01:25) itchy, itching atorvastatin Allergy (Unknown, Verified 02/26/24 01:25) itchy, itching doxycycline Allergy (Unknown, Verified 02/26/24 01:25) hives Medication List - Last Reconciled 02/26/24 by Claire Castillo MD blood sugar diagnostic (FreeStyle Lite Strips) Test blood sugar BID AC blood-glucose meter (FreeStyle Lite Meter kit) As directed lancets (FreeStyle Lancets) Test blood sugar once a day lisinopril-hydrochlorothiazide 20-12.5 mg 1 tab PO DAILY metformin 500 mg PO DAILY omeprazole 40 mg PO DAILY PRN rosuvastatin 5 mg PO DAILY sertraline 50 mg PO DAILY Tobacco use date assessed: 02/20/24 Dental Screening Dental Screen Date: 02/20/24 Did you have a dental visit in the last 12 months?: Yes Did you have a dental problem in the last 6 months where you did not have access to dental care?: No Was dental information given to patient?: Patient has dentist HPI f/u labs HPI Details 53-year-old lady with diabetes mellitus, hypertension, and hyperlipidemia, here today for follow-up. She has gained weight since last visit, with blood pressure higher than last check. Patient states that she has not been following recommended diet lately , and has not been getting any regular exercise. She however has been taking her medications as directed. [facility] Medical History (Updated 02/26/24 @ 01:27 by Claire Castillo MD) Depression, controlled History of shingles Intra-articular loose body Lesion of bone of ankle Vitamin D deficiency Dyslipidemia Obesity (BMI 30-39.9) Seasonal allergies Diabetes mellitus with microalbuminuria, without long-term current use of insulin Essential hypertension Type 2 diabetes mellitus without complication, without long-term current use of insulin Mixed dyslipidemia Hx of gastroesophageal reflux (GERD) Surgical History H/O foot surgery Hx of section Family History Father Hypertension Kidney disease Mother Hypertension Stroke Brother No problems noted. Brother No problems noted. Brother No problems noted. Brother No problems noted. Sister No problems noted. Sister No problems noted. Sister No problems noted. Sister No problems noted. Son No problems noted. 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 1. Little interest or pleasure in doing things: not at all 2. Feeling down, depressed, or hopeless: not at all 3. Trouble falling or staying asleep, or sleeping too much: not at all 4. Feeling tired or having little energy: not at all 5. Poor appetite or overeating: not at all 6. Feeling bad about yourself - or that you are a failure or have let yourself or your family down: not at all 7. Trouble concentrating on things, such as reading the newspaper or watching television: not at all 8. Moving or speaking so slowly that other people could have noticed. Or the opposite - being so fidgety or restless that you have been moving around a lot more than usual: not at all 9. Thoughts that you would be better off or of hurting yourself in some way: not at all Total score: 0 Depression Screening Interpretation: Negative Depression Screening Done: Yes 58529 - PHQ-9 Billing: Yes Source: Developed by Drs. Tay Kendall, Monet Blandon, Ritesh Miner and colleagues, with an educational yifan from [employer]. Thrive Questionnaire Date Thrive assessed: 02/20/24 I am a: Patient What is your living situation today?: I have a steady place to live Within the past 12 months, did the food you bought not last and you didn't have the money to get more?: Never true Within the past 12 months, did you worry whether your food would run out before you got money to buy more?: Never true Do you have trouble paying for medicines?: No Do you have trouble getting transportation to medical appointments?: No Do you have trouble paying your heating and electricity bill?: No Do you have trouble taking care of your child, family member or friend?: No Do you have trouble with day-to-day activities such as bathing, preparing meals, shopping, managing finances, etc.?: No Are you currently unemployed and looking for a job?: No Are you interested in more education?: Yes Currently or been in a relationship where the following occur: no concerns reported THRIVE Score: 0 AUDIT C Alcohol Use Questionnaire (AUDIT-C) 1. How often do you have a drink containing alcohol?: Never 3. How often do you have six or more drinks on one occasion?: Never Total Score: 0 Score Reviewed/Action Taken: Yes EDI-7 AMB Questionnaire EDI-7 Date EDI - 7 assessed: 02/20/24 Feeling nervous, anxious, or on edge: 0 = Not at all Not being able to stop or control worryin = Not at all Worrying too much about different things: 0 = Not at all Trouble relaxin = Not at all Being so restless that it is hard to sit still: 0 = Not at all Becoming easily annoyed or irritable: 0 = Not at all Feeling afraid as if something awful might happen: 0 = Not at all Total EDI-7 score (0-4 normal; 5-9 mild; 10-14 moderate; 15-21 severe): 0 Source: Developed by Drs. Tay Kendall, Monet Blandon, Ritesh Miner and colleagues, with an educational yifan from [employer]. EDI-7 Assessment Billing EDI-7 Assessment Tool: EDI-7 Assessment 46627 Review of Systems Const Denies fatigue, Denies fever(s), Denies headache(s) and Denies weakness Eyes Denies change in vision ENT Denies dizziness, Denies headache(s), Denies nasal congestion, Denies nasal discharge and Denies sore throat Card Denies chest pain, Denies lightheadedness, Denies palpitations and Denies dyspnea Resp Denies chest congestion, Denies cough, Denies dyspnea and Denies wheezing GI Denies abdominal pain, Denies melena, Denies hematochezia, Denies change in bowel habits, Denies heartburn and Denies nausea Denies urinary frequency, Denies dysuria and Denies urinary urgency Musc Denies myalgias, Denies arthralgias and Denies muscle weakness Skin/Breast Denies breast swelling, Denies breast pain, Denies breast mass, Denies lesions and Denies rash Neuro Denies dizziness, Denies headache(s) and Denies weakness Psych Reports no additional complaints Endo Denies fatigue, Denies polydipsia, Denies polyuria and Denies palpitations Claudy/Lymph Denies easy bleeding and Denies easy bruising Aller/Immun Denies seasonal rhinorrhea and Denies wheezing Physical exam (Primary Care) Vital Signs: Last Vital Signs Pulse 82 02/20/24 10:46 BP 148/92 H 02/20/24 10:46 Pulse Ox 96 02/20/24 10:46 Oxygen Delivery Method Room Air 02/20/24 10:46 Tobacco/Smoking Status: Tobacco use Status Tobacco use date assessed 02/20/24 02/20/24 10:48 Patient Tobacco Use Status Never used Tobacco 02/20/24 10:43 e-Cigarette/Vaping Use Never Used 02/20/24 10:43 PHQ-9: PHQ-9 Score PHQ-9: Total score 0 02/26/24 01:31 Depression Screening Interpretation: Negative Thrive Assessment: Date of Thrive Assessment Date Thrive assessed 02/20/24 02/20/24 10:56 Currently or been in a relationship where the following occur: no concerns reported Advance Care Planning discussion: Completed/Scanned Date of discussion: 02/20/24 Who was present: Patient Forms completed: Health Care Proxy Time spent: 16-45 minutes Actual minutes spent: 16 Const Other: Alert oriented x3, no acute distress noted ambulatory with normal gait Nutritional Appearance: obese Orientation/consciousness: patient oriented x3 HENMT Ears: hearing grossly normal bilaterally and EAC's normal General nose exam: Normal external nose present and No nasal discharge present Mouth: Normal oral and palatal mucosa present and moist mucous membranes Eyes General: appearance normal, both eyes and all related structures Neck Neck: Yes full ROM, Yes no lymphadenopathy and Yes supple Thyroid: Thyroid normal Chest Chest palpation & inspection: normal inspection of the chest and normal palpation of entire chest wall Breast/axilla palpation: normal palpation of the breasts Resp Auscultation: clear to auscultation bilaterally Cardio Other: S1-S2 present regular rate and rhythm GI Other: Normal bowel sounds, soft, nontender, no mass palpated General: Yes no CVA tenderness Back/Spine/Pelvis Back: no CVA tenderness and No back tenderness Skin General skin exam: no rashes or lesions noted Neuro General: patient oriented x3, tone normal, Normal light touch and pain sensation, no focal motor deficits and CN's II-XI intact bilaterally Extrem General: Yes full ROM, Yes no joint enlargement, Yes no pedal edema, Yes no calf tenderness and Yes normal gait Psych Appearance: grossly normal and well kempt Mental Status: mental status grossly normal Speech and movement: Normal speech and movement present Affect: normal affect Attitude: cooperative Thought process: Normal thought process present Thought content: Normal thought content present Results Reviewed Results Reviewed: Name: Leandro Núñez Age/Sex: 53/F : 1970 Unit#: [id number] Attend Dr: Claire Castillo MD Re02/15/24 Status: DEP REF Location: [facility] Disch: SPEC : [id number] DAVID: 02/15/24 STATUS: COMP REQ : [id number] RECD: 02/15/24-[address]: Claire Castillo MD COMP: 02/15/24 ENTERED: 02/15/[address] [facility] [address]: ORDERED: Met Prof Fast, AST, ALT, Lipid Panel, Vitamin D 25-OH Test Result Flag Reference Sodium 143 135-145 mmol/L Potassium 3.9 3.3-5.1 mmol/L CL 103 96-108 mmol/L CO2 31 H 22-29 mmol/L Gap 13 12-20 BUN 13 9-16 mg/dL Creat 0.78 0.5-1.4 mg/dL EGFR > 60 NOTE: For -[place] individuals, multiply the result by 1.210. Chronic Kidney Disease: Estimated GFR < 60 mL/min/1.73m2 Severe Kidney Disease: Estimated GFR < 15 mL/min/1.73m2 FBS 144 H 60-99 mg/dL A fasting glucose of 126 mg/dl or greater on more than one occasion is considered diagnostic of diabetes. CA 9.5 8.4-10.2 mg/dL AST (GOT) 45 H 5-31 U/L ALT (GPT) 60 H 0-31 U/L Triglyceride 152 H <150 mg/dL Desirable Triglyceride: less than 150 mg/dL Borderline High Triglyceride 150-199 mg/dL High Triglyceride: 200-499 mg/dL Very High Triglyceride: greater than or equal to 5OO mg/dL Cholesterol 176 <200 mg/dL Desirable Cholesterol: less than 200 mg/dL Borderline High Cholesterol: 200-239 mg/dL High Cholesterol: greater than 239 mg/dL LDL Calculated 102 H <100 mg/dL Desirable LDL: less than 100 mg/dL Near Optimal/Above Optimal LDL: 110-129 mg/dL Borderline High LDL: 130-159 mg/dL High LDL: 160-189 mg/dL Very High LDL: greater than or equal to 190 mg/dL HDL 44 >40 mg/dL Desirable HDL: greater than 40 mg/dL Note: This HDL assay may give artificially low results in patients with liver disease. Vit D 25-OH Tot 47.5 >30 ng/mL Health Based Reference Values* < 20 ng/mL Deficient 20-30 ng/mL Insufficient > 30 ng/mL Sufficient Laboratory Tests 02/15/24 06:34 Estimat Average Glucose 143 Hemoglobin A1c % 6.6 H Laboratory Tests 02/15/24 06:34 Urine Creatinine 121.17 Urine Microalbumin 63.0 Microalb/Creat Ratio 51.9 H Assessment and Plan Assessment & Plan (1) Mixed dyslipidemia: Code(s): E78.2 - Mixed hyperlipidemia Plan: Reviewed recent fasting lipid profile with patient with mild elevation LDL cholesterol. . Continue rosuvastatin 5 mg daily , in addition to adherence to low-cholesterol diet and regular exercise, at least 30 minutes 3 to 4 times a week. Advised patient to make healthy food choices, eat more fruits, vegetables, whole grains, wild caught fish and low-fat dairy. Limit amount of meat and fried or fatty food products, as well as processed foods and fast foods. Follow-up scheduled with repeat fasting lipid panel in 3 months. (2) Essential hypertension: Code(s): I10 - Essential (primary) hypertension Plan: Blood pressure elevated today, reinforced importance of following a low-salt diet and getting regular exercise , weight loss recommended. Continue lisinopril HCTZ 20-12.5 mg taken 1 tablet daily (3) Diabetes mellitus with microalbuminuria, without long-term current use of insulin: Code(s): E11.29 - Type 2 diabetes mellitus with other diabetic kidney complication; R80.9 - Proteinuria, unspecified Plan: Recent lab results reviewed with patient, with sugar and hemoglobin A1c stable at 6.6%. Continue metformin 500 mg once a day, continue to check fasting blood sugar at home, maintain log and bring to next appointment for review. Reinforced diabetic diet and regular exercise with patient. Counseled regarding importance of yearly diabetes retinopathy screening. Patient advised to inspect feet daily, for any signs of injury, callus or infection. Compliance with diet and regular exercise again stressed. Blood pressure goal is less than 130/80, goal LDL is less than 100 and goal hemoglobin A1c is less than 7% follow-up appointment made in-3--months, after fasting labs done. (4) Depression, controlled: Code(s): F32.A - Depression, unspecified Plan: Continue on sertraline 50 mg once a day (5) Advanced directives, counseling/discussion: Code(s): Z71.89 - Other specified counseling Plan: Initiated the conversation about Advanced Directives. Advanced Directives help patients prepare for current and future decisions about their medical treatment and place of care. Discussed with patient that it is a process where a patients current condition and prognosis are reviewed, their wishes for information regarding their illness are elicited, and likely medical dilemmas are presented and options discussed. Healthcare proxy form completed today. The form can be amended as needed, reviewed yearly and make changes as needed Orders: Orders Hemoglobin A1c 05/04/24 E11.29 - Type 2 diabetes mellitus with other diabetic kidney complication, E78.2 - Mixed hyperlipidemia, I10 - Essential (primary) hypertension, R80.9 - Proteinuria, unspecified Alanine Aminotransferase 05/04/24 E11.29 - Type 2 diabetes mellitus with other diabetic kidney complication, E78.2 - Mixed hyperlipidemia, I10 - Essential (primary) hypertension, R80.9 - Proteinuria, unspecified Aspartate Amino Transferase 05/04/24 E11.29 - Type 2 diabetes mellitus with other diabetic kidney complication, E78.2 - Mixed hyperlipidemia, I10 - Essential (primary) hypertension, R80.9 - Proteinuria, unspecified Basic Metabolic Panel Fasting 05/04/24 E11.29 - Type 2 diabetes mellitus with other diabetic kidney complication, E78.2 - Mixed hyperlipidemia, I10 - Essential (primary) hypertension, R80.9 - Proteinuria, unspecified Lipid Panel 05/04/24 E11.29 - Type 2 diabetes mellitus with other diabetic kidney complication, E78.2 - Mixed hyperlipidemia, I10 - Essential (primary) hypertension, R80.9 - Proteinuria, unspecified Medications: Changed From blood sugar diagnostic Test blood sugar once a day 100 ea 1RF E11.29 - Type 2 diabetes mellitus with other diabetic kidney complication, R80.9 - Proteinuria, unspecified To blood sugar diagnostic (FreeStyle Lite Strips) Test blood sugar BID AC 100 ea 5RF E11.29 - Type 2 diabetes mellitus with other diabetic kidney complication, R80.9 - Proteinuria, unspecified Refilled lancets (FreeStyle Lancets) Test blood sugar once a day 100 ea 5RF E11.29 - Type 2 diabetes mellitus with other diabetic kidney complication, R80.9 - Proteinuria, unspecified blood-glucose meter (FreeStyle Lite Meter kit) As directed 1 ea 0RF E11.29 - Type 2 diabetes mellitus with other diabetic kidney complication, R80.9 - Proteinuria, unspecified metformin take with supper 500 mg PO DAILY 90 tabs 3RF sertraline 50 mg PO DAILY 90 tabs 3RF Coding Level of Care Code Est Pt Level 4 (92361) Diagnoses Mixed dyslipidemia E78.2 Essential hypertension I10 Diabetes mellitus with microalbuminuria, without long-term current use of insulin E11.; R80.9 Depression, controlled F32.A Advanced directives, counseling/discussion Z71.89 Additional Codes EDI-7 Assessment Billing - EDI-7 Assessment Tool: EDI-7 Assessment 57453 ([id number]) Vital Signs *Quality* - Advance Care Planning discussion: Completed/Scanned ([id number]) Vital Signs *Quality* - Time spent: 16-45 minutes ([id number])
[2024-02-20 10:46] VITALS: BP 148/92; PULSE 82; O2SAT 96
== END 2024-02-20 11:26 | disposition home or self-care (01) ==
PROVIDERS: PCP Internal Medicine; Visit Provider Internal Medicine
DX: E78.2 Mixed hyperlipidemia (principal); I10 Essential (primary) hypertension; E11.29 Type 2 diabetes mellitus with other diabetic kidney complication; R80.9 Proteinuria, unspecified; F32.A Depression, unspecified; Z71.89 Other specified counseling; Z00.00 Encounter for general adult medical examination without abnormal findings
CPT/HCPCS: 1123F; 99214; 99497

== ENCOUNTER 2024-04-18 10:13 | Outpatient (AMB) | payer OTHER, SELFPAY ==
--- NOTE | 2024-04-18 10:32 | AM.OFFWIN_ITS ---
Intake Vital Signs 04/18/24 10:33 Height 5 ft 2 in BP 170/96 H Blood Pressure Location Rt brachial Position Sitting Pulse 78 Pulse Source Pulse Oximeter Temp 98.1 F Temp Source Oral Pulse Oximetry (%) 97 Oxygen Delivery Method Room Air Intake Visit Reasons: EP Sinus/Headache Intake Note: pt is here for sinus pressure with headache Patient Tobacco Use Status: Never used Tobacco Allergies amoxicillin Allergy (Unknown, Verified 04/18/24 10:33) itchy, itching atorvastatin Allergy (Unknown, Verified 04/18/24 10:33) itchy, itching doxycycline Allergy (Unknown, Verified 04/18/24 10:33) hives Do you need a note to return to daycare/school/sports/work: No HPI HPI Comments History of Present Illness Details 53 y/o female patient who presents to [facility] in clinic with c/o Headaches, runny and nasal congestion, sneezing and elevated BP. Pt reports that symptoms started ~ 1 week ago. Denies fevers, chills, nausea or vomiting. [facility] Medical History (Updated 02/26/24 @ 01:27 by Claire Castillo MD) Depression, controlled History of shingles Intra-articular loose body Lesion of bone of ankle Vitamin D deficiency Dyslipidemia Obesity (BMI 30-39.9) Seasonal allergies Diabetes mellitus with microalbuminuria, without long-term current use of insulin Essential hypertension Type 2 diabetes mellitus without complication, without long-term current use of insulin Mixed dyslipidemia Hx of gastroesophageal reflux (GERD) Surgical History H/O foot surgery Hx of section Family History Father Hypertension Kidney disease Mother Hypertension Stroke Brother No problems noted. Brother No problems noted. Brother No problems noted. Brother No problems noted. Sister No problems noted. Sister No problems noted. Sister No problems noted. Sister No problems noted. Son No problems noted. 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 Gender identity: Female Cognitive needs: No Hearing needs: No Vision needs: No Female Reproductive History Menstrual Age of Menarche: 14 Review of Systems Const All systems reviewed & are unremarkable except as noted in HPI and below Physical Exam Vital Signs: Last Vital Signs Temp 98.1 F 04/18/24 10:33 Pulse 78 04/18/24 10:33 BP 170/96 H 04/18/24 10:33 Pulse Ox 97 04/18/24 10:33 Oxygen Delivery Method Room Air 04/18/24 10:33 Const General: comfortable and no acute distress Nutritional Appearance: obese Orientation/consciousness: patient oriented x3 HEENT Head: Yes normocephalic Ears: external ears normal and TM's normal bilaterally General nose exam: Abnormal mucous membranes and turbinates present boggy and erythematous Face and sinus: Yes sinuses nontender Mouth: moist mucous membranes Throat: Yes postnasal drainage Resp Effort & Inspection: normal respiratory effort and able to speak in complete sentences Auscultation: clear to auscultation bilaterally, no crackles, no rales, no rhonchi and no wheezes Cardio Rate: regular rate Rhythm: regular rhythm Neuro General: patient oriented x3, gait normal and moves all extremities Psych Speech and movement: Normal speech and movement present Assessment & Plan Assessment & Plan (1) Essential hypertension: Code(s): I10 - Essential (primary) hypertension Plan: - Avoid Ibuprofen for now - Continue taking your HTN meds as Prescribed - F/U with PCP (2) Generalized headaches: Code(s): R51.9 - Headache, unspecified Plan: - Acetaminophen for pain relief - Rest and hydrate well (3) Allergic rhinitis: Code(s): J30.9 - Allergic rhinitis, unspecified Qualifiers: Allergic rhinitis seasonality: seasonal Allergic rhinitis trigger: unspecified Qualified Code(s): J30.2 - Other seasonal allergic rhinitis Plan: - Rx'd Zrytec and Flonase Medications: New cetirizine (Zyrtec) 10 mg PO DAILY PRN 90 tabs 0RF allergy symptoms J30.9 - Allergic rhinitis, unspecified fluticasone furoate 27.5 mcg/actuation (Flonase Sensimist) into each nostril 1 spray intranasal DAILY 5.9 mL 0RF J30.9 - Allergic rhinitis, unspecified acetaminophen 1,000 mg (2 x 500 mg) PO Q6H PRN 90 caps 0RF pain (scale score 7- 10) R51.9 - Headache, unspecified Coding Level of Care Code Est Pt Level 3 (59852) Diagnoses Essential hypertension I10 Generalized headaches R51.9 Seasonal allergic rhinitis, unspecified trigger J30.2 Allergic rhinitis seasonality: seasonal Allergic rhinitis trigger: unspecified Time Spent (min) 15
[2024-04-18 10:33] VITALS: BP 170/96; PULSE 78; TEMP 36.7; O2SAT 97
== END 2024-04-18 11:09 | disposition home or self-care (01) ==
PROVIDERS: PCP Internal Medicine; Visit Provider Nurse Practitioner Family
DX: I10 Essential (primary) hypertension (principal); R51.9 Headache, unspecified; J30.2 Other seasonal allergic rhinitis
CPT/HCPCS: 99213

== ENCOUNTER 2024-05-07 06:06 | Outpatient (REF) | payer OTHER, SELFPAY ==
[2024-05-07 10:32] LABS: Estimated Average Glucose 143 mg/dL; Hemoglobin A1c % 6.6 % (<6.0)
[2024-05-07 11:00] LABS: Alanine Aminotransferase 29 U/L (0-31); Anion Gap 13 (12-20); Aspartate Amino Transferase 31 U/L (5-31); Blood Urea Nitrogen 13 mg/dL (9-16); Calcium 9.8 mg/dL (8.4-10.2); Carbon Dioxide 31 mmol/L (22-29); Chloride 102 mmol/L (96-108); Cholesterol 142 mg/dL (<200); Estimated Glomerular Filt Rate > 60; Glucose Fasting 141 mg/dL (60-99); HDL Cholesterol 36 mg/dL (>40); LDL Cholesterol Calculated 63 mg/dL (<100); Potassium 3.7 mmol/L (3.3-5.1); Sodium 142 mmol/L (135-145); Triglycerides 217 mg/dL (<150)
== END 2024-05-07 06:07 | disposition home or self-care (01) ==
LOC: HO.HMGCLDS 06:06
PROVIDERS: PCP Internal Medicine; Visit Provider Internal Medicine
DX: E11.29 Type 2 diabetes mellitus with other diabetic kidney complication (principal); R80.9 Proteinuria, unspecified; I10 Essential (primary) hypertension; E78.2 Mixed hyperlipidemia
CPT/HCPCS: 36415; 80048; 80061; 83036; 84450; 84460

== ENCOUNTER 2024-05-09 14:48 | Outpatient (AMB) | payer OTHER, SELFPAY ==
[2024-05-09 15:03] VITALS: BP 142/90; PULSE 71; O2SAT 96
--- NOTE | 2024-05-09 15:03 | MHC.PC.OV ---
Vital Signs 05/09/24 15:03 BMI Reason not done Patient refused/unable BP 142/90 H Blood Pressure Location Rt brachial Position Sitting Pulse 71 Pulse Source Pulse Oximeter Pulse Oximetry (%) 96 Oxygen Delivery Method Room Air Intake Visit Reasons: F/U DM Lipids HTN after labs done Intake Note: Pt is here today for her f/u DM, lipids and HTN Allergies amoxicillin Allergy (Unknown, Verified 05/09/24 15:04) itchy, itching atorvastatin Allergy (Unknown, Verified 05/09/24 15:04) itchy, itching doxycycline Allergy (Unknown, Verified 05/09/24 15:04) hives Medication List - Last Reconciled 05/12/24 by Claire Castillo MD acetaminophen 1,000 mg (2 x 500 mg) PO Q6H PRN amlodipine 5 mg PO DAILY blood sugar diagnostic (FreeStyle Lite Strips) Test blood sugar BID AC blood-glucose meter (FreeStyle Lite Meter kit) As directed lancets (FreeStyle Lancets) Test blood sugar once a day lisinopril-hydrochlorothiazide 20-12.5 mg 1 tab PO DAILY metformin 500 mg PO DAILY rosuvastatin 5 mg PO DAILY sertraline 50 mg PO DAILY Tobacco use date assessed: 05/09/24 Dental Screening Dental Screen Date: 05/09/24 Did you have a dental visit in the last 12 months?: Yes Did you have a dental problem in the last 6 months where you did not have access to dental care?: No Was dental information given to patient?: Patient has dentist HPI F/U DM Lipids HTN after labs done HPI Details 53-year-old lady here today for follow-up on her diabetes mellitus, hypertension hyperlipidemia. She has been compliant with medications and diet, has been trying to exercise regularly. Denies any headache, no chest pain or shortness of breath. Blood pressure however today is still not at goal of less than 130/80. Patient states that she slipped at work several days ago and left leg slipped backwards. Now complains of pain and stiffness in left lower back and back of her left knee. [facility], [facility] Medical History Depression, controlled History of shingles Intra-articular loose body Lesion of bone of ankle Vitamin D deficiency Dyslipidemia Obesity (BMI 30-39.9) Seasonal allergies Diabetes mellitus with microalbuminuria, without long-term current use of insulin Essential hypertension Type 2 diabetes mellitus without complication, without long-term current use of insulin Mixed dyslipidemia Hx of gastroesophageal reflux (GERD) Surgical History H/O foot surgery Hx of section Family History Father Hypertension Kidney disease Mother Hypertension Stroke Brother No problems noted. Brother No problems noted. Brother No problems noted. Brother No problems noted. Sister No problems noted. Sister No problems noted. Sister No problems noted. Sister No problems noted. Son No problems noted. 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 Tay Kendall, Monet Blandon, Ritesh Miner and colleagues, with an educational yifan from [employer]. Review of Systems Const Denies fatigue, Denies fever(s), Denies headache(s) and Denies weakness Eyes Denies change in vision ENT Denies dizziness, Denies headache(s), Denies nasal congestion, Denies nasal discharge and Denies sore throat Card Denies chest pain, Denies lightheadedness, Denies palpitations and Denies dyspnea Resp Denies chest congestion, Denies cough, Denies dyspnea and Denies wheezing GI Denies abdominal pain, Denies melena, Denies hematochezia, Denies change in bowel habits, Denies heartburn and Denies nausea Denies urinary frequency, Denies dysuria and Denies urinary urgency Musc Denies myalgias, Denies arthralgias and Denies muscle weakness Skin/Breast Denies breast swelling, Denies breast pain, Denies breast mass, Denies lesions and Denies rash Neuro Denies dizziness, Denies headache(s) and Denies weakness Psych Reports no additional complaints Endo Denies fatigue, Denies polydipsia, Denies polyuria and Denies palpitations Claudy/Lymph Denies easy bleeding and Denies easy bruising Aller/Immun Denies seasonal rhinorrhea and Denies wheezing Physical exam (Primary Care) Vital Signs: Last Vital Signs Pulse 71 05/09/24 15:03 BP 142/90 H 05/09/24 15:03 Pulse Ox 96 05/09/24 15:03 Oxygen Delivery Method Room Air 05/09/24 15:03 Tobacco/Smoking Status: Tobacco use Status Tobacco use date assessed 05/09/24 05/09/24 15:07 Patient Tobacco Use Status Never used Tobacco 05/09/24 15:07 e-Cigarette/Vaping Use Never Used 05/09/24 15:07 Thrive Assessment: Date of Thrive Assessment Date Thrive assessed 02/20/24 05/09/24 15:07 Const Other: Alert oriented x3, no acute distress noted ambulatory with normal gait Nutritional Appearance: obese Orientation/consciousness: patient oriented x3 HENMT Ears: hearing grossly normal bilaterally and EAC's normal General nose exam: Normal external nose present and No nasal discharge present Mouth: Normal oral and palatal mucosa present and moist mucous membranes Eyes General: appearance normal, both eyes and all related structures Neck Neck: Yes full ROM, Yes no lymphadenopathy and Yes supple Thyroid: Thyroid normal Resp Auscultation: clear to auscultation bilaterally Cardio Other: S1-S2 present regular rate and rhythm GI Other: Normal bowel sounds, soft, nontender, no mass palpated General: Yes no CVA tenderness Back/Spine/Pelvis Back: no CVA tenderness and No back tenderness Skin General skin exam: no rashes or lesions noted Neuro General: patient oriented x3, tone normal, Normal light touch and pain sensation, no focal motor deficits and CN's II-XI intact bilaterally Extrem Other: Decreased range of motion of left lower extremity , no gross bone deformity or joint swelling seen General: Yes no joint enlargement, Yes no pedal edema, Yes no calf tenderness, Yes normal gait, No calf tenderness and No Limp noted Results Reviewed Results Reviewed: Name: Leandro Núñez Age/Sex: 53/F : 1970 Unit#: [id number] Attend Dr: Claire Castillo MD Re05/07/24 Status: DEP REF Location: [facility] Disch: SPEC : [id number] DAVID: 05/07/24 STATUS: COMP REQ : [id number] RECD: 05/07/24-[address]: Claire Castillo MD COMP: 05/07/24 ENTERED: 05/07/[address] [facility] [address]: ORDERED: Met Prof Fast, AST, ALT, Lipid Panel Test Result Flag Reference Sodium 142 135-145 mmol/L Potassium 3.7 3.3-5.1 mmol/L CL 102 96-108 mmol/L CO2 31 H 22-29 mmol/L Gap 13 12-20 BUN 13 9-16 mg/dL Creat 0.76 0.5-1.4 mg/dL EGFR > 60 NOTE: For -[place] individuals, multiply the result by 1.210. Chronic Kidney Disease: Estimated GFR < 60 mL/min/1.73m2 Severe Kidney Disease: Estimated GFR < 15 mL/min/1.73m2 FBS 141 H 60-99 mg/dL A fasting glucose of 126 mg/dl or greater on more than one occasion is considered diagnostic of diabetes. CA 9.8 8.4-10.2 mg/dL AST (GOT) 31 5-31 U/L ALT (GPT) 29 0-31 U/L Triglyceride 217 H <150 mg/dL Desirable Triglyceride: less than 150 mg/dL Borderline High Triglyceride 150-199 mg/dL High Triglyceride: 200-499 mg/dL Very High Triglyceride: greater than or equal to 5OO mg/dL Cholesterol 142 <200 mg/dL Desirable Cholesterol: less than 200 mg/dL Borderline High Cholesterol: 200-239 mg/dL High Cholesterol: greater than 239 mg/dL LDL Calculated 63 <100 mg/dL Desirable LDL: less than 100 mg/dL Near Optimal/Above Optimal LDL: 110-129 mg/dL Borderline High LDL: 130-159 mg/dL High LDL: 160-189 mg/dL Very High LDL: greater than or equal to 190 mg/dL HDL 36 L >40 mg/dL Desirable HDL: greater than 40 mg/dL Note: This HDL assay may give artificially low results in patients with liver disease. Laboratory Tests 02/15/24 05/07/24 06:34 06:19 Estimat Average Glucose 143 Hemoglobin A1c % 6.6 H Urine Microalbumin 63.0 Microalb/Creat Ratio 51.9 H Assessment and Plan Assessment & Plan (1) Mixed dyslipidemia: Code(s): E78.2 - Mixed hyperlipidemia Plan: Reviewed recent fasting lipid profile with patient with levels within normal limits . Continue rosuvastatin 5 mg daily , in addition to adherence to low-cholesterol diet and regular exercise, at least 30 minutes 3 to 4 times a week. Advised patient to make healthy food choices, eat more fruits, vegetables, whole grains, wild caught fish and low-fat dairy. Limit amount of meat and fried or fatty food products, as well as processed foods and fast foods. Follow-up scheduled with repeat fasting lipid panel in 3 months. (2) Essential hypertension: Code(s): I10 - Essential (primary) hypertension Plan: Goal blood pressure less than 130/80, will add amlodipine 5 mg once a day at night, continue with lisinopril-HCTZ 20-12.5 mg once a day. Reinforced importance of following a low-salt diet and getting regular exercise at least 30 minutes daily (3) Diabetes mellitus with microalbuminuria, without long-term current use of insulin: Code(s): E11.29 - Type 2 diabetes mellitus with other diabetic kidney complication; R80.9 - Proteinuria, unspecified Plan: Recent lab results reviewed with patient, with sugar and hemoglobin A1c stable and at goal continue to check fasting blood sugar at home, maintain log and bring to next appointment for review. Reinforced diabetic diet and regular exercise with patient. Counseled regarding importance of yearly diabetes retinopathy screening. Patient advised to inspect feet daily, for any signs of injury, callus or infection. Compliance with diet and regular exercise again stressed. Blood pressure goal is less than 130/80, goal LDL is less than 100 and goal hemoglobin A1c is less than 7% follow-up appointment made in---months, after fasting labs done. (4) Depression, controlled: Code(s): F32.A - Depression, unspecified Plan: Continue sertraline 50 mg daily (5) Pain of back and left lower extremity: Code(s): M54.9 - Dorsalgia, unspecified; M79.605 - Pain in left leg Plan: Referred for chiropractic evaluation and treatment Orders: Orders Lipid Panel 08/11/24. - Type 2 diabetes mellitus with other diabetic kidney complication, E66.9 - Obesity, unspecified, E78.2 - Mixed hyperlipidemia, F32.A - Depression, unspecified, I10 - Essential (primary) hypertension, R80.9 - Proteinuria, unspecified Alanine Aminotransferase 08/11/24. - Type 2 diabetes mellitus with other diabetic kidney complication, E66.9 - Obesity, unspecified, E78.2 - Mixed hyperlipidemia, F32.A - Depression, unspecified, I10 - Essential (primary) hypertension, R80.9 - Proteinuria, unspecified Hemoglobin A1c 08/11/24. - Type 2 diabetes mellitus with other diabetic kidney complication, E66.9 - Obesity, unspecified, E78.2 - Mixed hyperlipidemia, F32.A - Depression, unspecified, I10 - Essential (primary) hypertension, R80.9 - Proteinuria, unspecified Aspartate Amino Transferase 08/11/24. - Type 2 diabetes mellitus with other diabetic kidney complication, E66.9 - Obesity, unspecified, E78.2 - Mixed hyperlipidemia, F32.A - Depression, unspecified, I10 - Essential (primary) hypertension, R80.9 - Proteinuria, unspecified Basic Metabolic Panel Fasting 08/11/24. - Type 2 diabetes mellitus with other diabetic kidney complication, E66.9 - Obesity, unspecified, E78.2 - Mixed hyperlipidemia, F32.A - Depression, unspecified, I10 - Essential (primary) hypertension, R80.9 - Proteinuria, unspecified Referrals Chiropractic Referral M54.9 - Dorsalgia, unspecified, M79.605 - Pain in left leg Medications: New amlodipine 5 mg PO DAILY 90 tabs 1RF Coding Level of Care Code Est Pt Level 4 (37582) Complex EM visit Add On G2211 Diagnoses Mixed dyslipidemia E78.2 Essential hypertension I10 Diabetes mellitus with microalbuminuria, without long-term current use of insulin ; R80.9 Depression, controlled F32.A Pain of back and left lower extremity M54.9; M79.605
== END 2024-05-09 15:53 | disposition home or self-care (01) ==
PROVIDERS: PCP Internal Medicine; Visit Provider Internal Medicine
DX: E78.2 Mixed hyperlipidemia (principal); I10 Essential (primary) hypertension; E11.29 Type 2 diabetes mellitus with other diabetic kidney complication; R80.9 Proteinuria, unspecified; F32.A Depression, unspecified; M54.9 Dorsalgia, unspecified; M79.605 Pain in left leg
CPT/HCPCS: 99214

== ENCOUNTER 2024-08-26 12:41 | Outpatient (AMB) | payer OTHER, SELFPAY ==
--- NOTE | 2024-08-26 12:56 | AM.OFFWIN_ITS ---
Intake Vital Signs 08/26/24 12:59 Weight 169 lb BP 130/84 Blood Pressure Location Rt brachial Position Sitting Pulse 63 Pulse Source Pulse Oximeter Pulse Oximetry (%) 98 Oxygen Delivery Method Room Air Intake Visit Reasons: EP-high BP/dizziness/tight chest Patient Tobacco Use Status: Never used Tobacco Allergies amoxicillin Allergy (Unknown, Verified 05/09/24 15:04) itchy, itching atorvastatin Allergy (Unknown, Verified 05/09/24 15:04) itchy, itching doxycycline Allergy (Unknown, Verified 05/09/24 15:04) hives HPI EP-high BP/dizziness/tight chest HPI Details This note is constructed using voice recognition software. While every effort has been made to ensure accuracy, information technology internship errors may have been included. The patient is a 53 year old female who presents to the clinic today with one- week history of left-sided chest pain, dizziness, and irregular blood pressure. She notes that her mother has an extensive cardiac history. She notes that when her chest pain has been happening she has also had decreased energy, which he has just written off as being busy at work. She denies any shortness of breath or diaphoresis. She reports that she has checked her blood pressure and it is but bend both high and low. The pain does not seem to resolve no matter what she tries. [facility] Medical History Depression, controlled History of shingles Intra-articular loose body Lesion of bone of ankle Vitamin D deficiency Dyslipidemia Obesity (BMI 30-39.9) Seasonal allergies Diabetes mellitus with microalbuminuria, without long-term current use of insulin Essential hypertension Type 2 diabetes mellitus without complication, without long-term current use of insulin Mixed dyslipidemia Hx of gastroesophageal reflux (GERD) Surgical History H/O foot surgery Hx of section Family History Father Hypertension Kidney disease Mother Hypertension Stroke Brother No problems noted. Brother No problems noted. Brother No problems noted. Brother No problems noted. Sister No problems noted. Sister No problems noted. Sister No problems noted. Sister No problems noted. Son No problems noted. 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 Gender identity: Female Cognitive needs: No Hearing needs: No Vision needs: No Female Reproductive History Menstrual Age of Menarche: 14 Review of Systems Const All systems reviewed & are unremarkable except as noted in HPI and below Physical Exam Vital Signs: Last Vital Signs Pulse 63 08/26/24 12:59 BP 130/84 08/26/24 12:59 Pulse Ox 98 08/26/24 12:59 Oxygen Delivery Method Room Air 08/26/24 12:59 Const General: cooperative, healthy appearing, comfortable, no acute distress and well developed Orientation/consciousness: patient oriented x3 Limitations: no limitations Resp Effort & Inspection: normal respiratory effort and able to speak in complete sentences Auscultation: clear to auscultation bilaterally Cardio Rate: regular rate Rhythm: regular rhythm Heart sounds: normal S1 and S2 Skin General skin exam: no rashes or lesions noted Neuro General: patient oriented x3 Assessment & Plan Assessment & Plan (1) Chest pain: Code(s): R07.9 - Chest pain, unspecified Qualifiers: Chest pain type: unspecified Qualified Code(s): R07.9 - Chest pain, unspecified Plan: EKG with concerning findings with T-wave inversions in the inferior lateral leads. Given the fact his symptoms are ongoing, and progressing, we elected due have her transferred to the hospital, and EMS was called for evaluation and further treatment plan. Plan See above for full details and plan. Orders: Orders AMB EKG-In Office Today R07.89 - Other chest pain Coding Level of Care Code Est Pt Level 4 (98156) Diagnoses Chest pain, unspecified type R07.9 Chest pain type: unspecified
[2024-08-26 12:59] VITALS: BP 130/84; PULSE 63; O2SAT 98
== END 2024-08-26 13:49 | disposition home or self-care (01) ==
PROVIDERS: PCP Internal Medicine; Visit Provider Registered Nurse
DX: R07.9 Chest pain, unspecified (principal)

== ENCOUNTER → 2024-08-26 12:41 | Outpatient (BNVA) | payer OTHER, SELFPAY | PROVIDERS: PCP Internal Medicine; Visit Provider Registered Nurse | DX: R07.89 Other chest pain (principal) | CPT/HCPCS: 93005 ==

== ENCOUNTER 2024-08-30 06:40 | Outpatient (REF) | payer OTHER, SELFPAY ==
[2024-08-30 11:06] LABS: Estimated Average Glucose 146 mg/dL; Hemoglobin A1C 175.3724 umol/L; Hemoglobin A1c % 6.7 % (<6.0); Total Hemoglobin (HGBA1C) 3526.7263 umol/L
[2024-08-30 11:53] LABS: Alanine Aminotransferase 62 U/L (0-31); Anion Gap 13 (12-20); Aspartate Amino Transferase 46 U/L (5-31); Blood Urea Nitrogen 11 mg/dL (9-16); Calcium 10.1 mg/dL (8.4-10.2); Carbon Dioxide 30 mmol/L (22-29); Chloride 102 mmol/L (96-108); Cholesterol 162 mg/dL (<200); Estimated Glomerular Filt Rate > 60; Glucose Fasting 152 mg/dL (60-99); HDL Cholesterol 47 mg/dL (>40); LDL Cholesterol Calculated 82 mg/dL (<100); Sodium 141 mmol/L (135-145); Triglycerides 165 mg/dL (<150)
== END 2024-08-30 06:41 | disposition home or self-care (01) ==
LOC: HO.HMGCLDS 06:40
PROVIDERS: PCP Internal Medicine; Visit Provider Internal Medicine
DX: F32.A Depression, unspecified (principal); E66.9 Obesity, unspecified; E11.29 Type 2 diabetes mellitus with other diabetic kidney complication; R80.9 Proteinuria, unspecified; I10 Essential (primary) hypertension; E78.2 Mixed hyperlipidemia
CPT/HCPCS: 36415; 80048; 80061; 83036; 84450; 84460

== ENCOUNTER 2024-09-05 14:06 | Outpatient (AMB) | payer OTHER, SELFPAY ==
--- NOTE | 2024-09-05 14:53 | MHC.PC.OV ---
Vital Signs 09/05/24 14:57 BP 132/80 Blood Pressure Location Lt brachial Position Sitting Pulse 68 Pulse Source Pulse Oximeter Pulse Oximetry (%) 97 Oxygen Delivery Method Room Air Intake Visit Reasons: Follow-up ER visit/hypertension Intake Note: Pt is here today for her [facility] ER f/u HTN Allergies amoxicillin Allergy (Unknown, Verified 09/08/24 14:45) itchy, itching atorvastatin Allergy (Unknown, Verified 09/08/24 14:45) itchy, itching doxycycline Allergy (Unknown, Verified 09/08/24 14:45) hives Medication List - Last Reconciled 09/08/24 by Claire Castillo MD acetaminophen 1,000 mg (2 x 500 mg) PO Q6H PRN amlodipine 5 mg PO DAILY blood sugar diagnostic (FreeStyle Lite Strips) Test blood sugar BID AC blood-glucose meter (FreeStyle Lite Meter kit) As directed lancets (FreeStyle Lancets) Test blood sugar once a day lisinopril-hydrochlorothiazide 20-12.5 mg 1 tab PO DAILY metformin 500 mg PO DAILY rosuvastatin 5 mg PO DAILY sertraline 50 mg PO DAILY Tobacco use date assessed: 09/05/24 Dental Screening Dental Screen Date: 09/05/24 Did you have a dental visit in the last 12 months?: Yes Did you have a dental problem in the last 6 months where you did not have access to dental care?: No Was dental information given to patient?: Patient has dentist HPI HPI Comments History of Present Illness Details 53-year-old lady with hypertension, hyperlipidemia and diabetes mellitus, here today for follow-up after recent ER visit. She was complaining of chest tightness and intermittent episodes of sharp pain on left side of the chest, aggravated by deep breathing accompanied by intermittent episodes of lightheadedness, was seen at the walk-in clinic where she was noted to have T-wave inversions in leads 2 , 3, AVF, V5 and V6. She was sent to the ER at [facility] were troponins came back negative, with persistent T-wave inversions but no ST elevation or depression seen. Blood pressure stabilized, discharge with a blood pressure of 140/76. At present, her blood pressure is 132/80, denies any chest pain, lightheadedness headache or shortness of breath. She was continued on amlodipine 5 mg daily and lisinopril-HCTZ 20-12.5 mg daily together with rosuvastatin 5 mg once a day and 500 mg metformin once a day. Currently taking sertraline for treatment of her depression which has been helping. COUNTS INCLUDE 234 BEDS AT THE [facility] Medical History Depression, controlled History of shingles Intra-articular loose body Lesion of bone of ankle Vitamin D deficiency Dyslipidemia Obesity (BMI 30-39.9) Seasonal allergies Diabetes mellitus with microalbuminuria, without long-term current use of insulin Essential hypertension Type 2 diabetes mellitus without complication, without long-term current use of insulin Mixed dyslipidemia Hx of gastroesophageal reflux (GERD) Surgical History H/O foot surgery Hx of section Family History Father Hypertension Kidney disease Mother Hypertension Stroke Brother No problems noted. Brother No problems noted. Brother No problems noted. Brother No problems noted. Sister No problems noted. Sister No problems noted. Sister No problems noted. Sister No problems noted. Son No problems noted. 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 Gender identity: Female Cognitive needs: No Hearing needs: No Vision needs: No Female Reproductive History Menstrual Age of Menarche: 14 Questionnaire Thrive Questionnaire Date Thrive assessed: 02/20/24 I am a: Patient What is your living situation today?: I have a steady place to live Within the past 12 months, did the food you bought not last and you didn't have the money to get more?: Never true Within the past 12 months, did you worry whether your food would run out before you got money to buy more?: Never true Do you have trouble paying for medicines?: No Do you have trouble getting transportation to medical appointments?: No Do you have trouble paying your heating and electricity bill?: No Do you have trouble taking care of your child, family member or friend?: No Do you have trouble with day-to-day activities such as bathing, preparing meals, shopping, managing finances, etc.?: No Are you currently unemployed and looking for a job?: No Are you interested in more education?: No Please select the resources that you would like help with: None Currently or been in a relationship where the following occur: I choose not to answer THRIVE Score: 0 AUDIT C Alcohol Use Questionnaire (AUDIT-C) 1. How often do you have a drink containing alcohol?: Never Total Score: 0 EDI-7 AMB Questionnaire EDI-7 Date EDI - 7 assessed: 02/20/24 Feeling nervous, anxious, or on edge: 0 = Not at all Not being able to stop or control worryin = Not at all Worrying too much about different things: 0 = Not at all Trouble relaxin = Not at all Being so restless that it is hard to sit still: 0 = Not at all Becoming easily annoyed or irritable: 0 = Not at all Feeling afraid as if something awful might happen: 0 = Not at all Total EDI-7 score (0-4 normal; 5-9 mild; 10-14 moderate; 15-21 severe): 0 Source: Developed by Drs. Tay Kendall, Monet Blandon, Ritesh Miner and colleagues, with an educational yifan from [employer]. Review of Systems Const All systems reviewed & are unremarkable except as noted in HPI and below Physical exam (Primary Care) Vital Signs: Last Vital Signs Pulse 68 09/05/24 14:57 BP 132/80 09/05/24 14:57 Pulse Ox 97 09/05/24 14:57 Oxygen Delivery Method Room Air 09/05/24 14:57 Tobacco/Smoking Status: Tobacco use Status Tobacco use date assessed 09/05/24 09/05/24 15:01 Patient Tobacco Use Status Never used Tobacco 09/05/24 14:54 e-Cigarette/Vaping Use Never Used 09/05/24 14:54 PHQ-9: PHQ-9 Score PHQ-9: Total score 0 09/05/24 15:31 Thrive Assessment: Date of Thrive Assessment Date Thrive assessed 02/20/24 09/05/24 14:54 Currently or been in a relationship where the following occur: I choose not to answer Const Other: Alert oriented x3, no acute distress noted ambulatory with normal gait HENMT Ears: hearing grossly normal bilaterally General nose exam: Normal external nose present Mouth: Normal oral and palatal mucosa present and moist mucous membranes Eyes General: appearance normal, both eyes and all related structures Neck Neck: Yes full ROM, Yes no lymphadenopathy and Yes supple Resp Auscultation: clear to auscultation bilaterally Cardio Other: S1-S2 present regular rate and rhythm GI Other: Normal bowel sounds, soft, nontender, no mass palpated Skin General skin exam: no rashes or lesions noted Neuro General: tone normal, Normal light touch and pain sensation, no focal motor deficits and CN's II-XI intact bilaterally Extrem General: Yes no joint enlargement, Yes no pedal edema, Yes no calf tenderness, Yes normal gait and No calf tenderness Psych Appearance: grossly normal and well kempt Mental Status: mental status grossly normal Speech and movement: Normal speech and movement present Affect: normal affect Thought process: Normal thought process present Thought content: Normal thought content present Results Reviewed Results Reviewed: Laboratory Tests 08/30/24 06:48 Estimat Average Glucose 146 Hemoglobin A1c % 6.7 H Name: Leandro Núñez Age/Sex: 53/F : 1970 Unit#: [id number] Attend Dr: Claire Castillo MD Re08/30/24 Status: DEP REF Location: [facility] Disch: SPEC : [id number] DAVID: 08/30/24 STATUS: COMP REQ : [id number] RECD: 08/30/[address]: Claire Castillo MD COMP: 08/30/24 ENTERED: 08/30/[address]: ORDERED: Met Prof Fast, AST, ALT, Lipid Panel Test Result Flag Reference Sodium 141 135-145 mmol/L Potassium 4.0 3.3-5.1 mmol/L CL 102 96-108 mmol/L CO2 30 H 22-29 mmol/L Gap 13 12-20 BUN 11 9-16 mg/dL Creat 0.77 0.5-1.4 mg/dL EGFR > 60 NOTE: For -[place] individuals, multiply the result by 1.210. Chronic Kidney Disease: Estimated GFR < 60 mL/min/1.73m2 Severe Kidney Disease: Estimated GFR < 15 mL/min/1.73m2 FBS 152 H 60-99 mg/dL A fasting glucose of 126 mg/dl or greater on more than one occasion is considered diagnostic of diabetes. CA 10.1 8.4-10.2 mg/dL AST (GOT) 46 H 5-31 U/L ALT (GPT) 62 H 0-31 U/L Triglyceride 165 H <150 mg/dL Desirable Triglyceride: less than 150 mg/dL Borderline High Triglyceride 150-199 mg/dL High Triglyceride: 200-499 mg/dL Very High Triglyceride: greater than or equal to 5OO mg/dL Cholesterol 162 <200 mg/dL Desirable Cholesterol: less than 200 mg/dL Borderline High Cholesterol: 200-239 mg/dL High Cholesterol: greater than 239 mg/dL LDL Calculated 82 <100 mg/dL Desirable LDL: less than 100 mg/dL Near Optimal/Above Optimal LDL: 110-129 mg/dL Borderline High LDL: 130-159 mg/dL High LDL: 160-189 mg/dL Very High LDL: greater than or equal to 190 mg/dL HDL 47 >40 mg/dL Desirable HDL: greater than 40 mg/dL Note: This HDL assay may give artificially low results in patients with liver disease. Coding Level of Care Code Est Pt Level 4 (35668) Complex EM visit Add On G2211 Diagnoses Essential hypertension I10 Abnormal electrocardiogram [ECG] [EKG] R94.31 Intermittent chest pain R07.9 Diabetes mellitus with microalbuminuria, without long-term current use of insulin E11.29; R80.9 Mixed dyslipidemia E78.2 Assessment & Plan Assessment & Plan (1) Essential hypertension: Code(s): I10 - Essential (primary) hypertension Category: Medical Plan: Will continue on current dose of lisinopril HCTZ and amlodipine. Reinforced importance of following a low-salt diet and getting regular exercise. (2) Abnormal electrocardiogram [ECG] [EKG]: Code(s): R94.31 - Abnormal electrocardiogram [ECG] [EKG] Plan: Referred to cardiology for further evaluation (3) Intermittent chest pain: Code(s): R07.9 - Chest pain, unspecified Plan: Cardiology consult ordered (4) Diabetes mellitus with microalbuminuria, without long-term current use of insulin: Code(s): E11.29 - Type 2 diabetes mellitus with other diabetic kidney complication; R80.9 - Proteinuria, unspecified Category: Medical Plan: Hemoglobin A1c today is 6.7%, continue with metformin 500 mg 1 tablet once a day, and adherence to healthy eating habits and getting regular exercise stressed. (5) Mixed dyslipidemia: Code(s): E78.2 - Mixed hyperlipidemia Category: Medical Plan: Reviewed recent fasting lipid profile with patient with levels levels within normal limits except for elevated triglycerides. . Continue rosuvastatin 5 mg daily , in addition to adherence to low-cholesterol diet and regular exercise, at least 30 minutes 3 to 4 times a week. Advised patient to make healthy food choices, eat more fruits, vegetables, whole grains, wild caught fish and low-fat dairy. Limit amount of meat and fried or fatty food products, as well as processed foods and fast foods. Orders: Referrals Cardiology Referral I10 - Essential (primary) hypertension, R00.2 - Palpitations, R07.9 - Chest pain, unspecified, R94.31 - Abnormal electrocardiogram [ECG] [EKG]
[2024-09-05 14:57] VITALS: BP 132/80; PULSE 68; O2SAT 97
== END 2024-09-05 15:52 | disposition home or self-care (01) ==
PROVIDERS: PCP Internal Medicine; Visit Provider Internal Medicine
DX: I10 Essential (primary) hypertension (principal); R94.31 Abnormal electrocardiogram [ECG] [EKG]; R07.9 Chest pain, unspecified; E11.29 Type 2 diabetes mellitus with other diabetic kidney complication; R80.9 Proteinuria, unspecified; E78.2 Mixed hyperlipidemia

== ENCOUNTER → 2024-09-05 14:06 | Outpatient (BNVA) | payer OTHER, SELFPAY | PROVIDERS: PCP Internal Medicine; Visit Provider Internal Medicine ==

== ENCOUNTER 2024-12-18 14:35 | Outpatient (REF) | payer OTHER, SELFPAY | END 2024-12-18 14:36 | disposition home or self-care (01) | LOC: HO.MAMMO 14:35 | PROVIDERS: PCP Internal Medicine; Visit Provider Internal Medicine | DX: Z12.31 Encounter for screening mammogram for malignant neoplasm of breast (principal) | CPT/HCPCS: 77063; 77067 ==

== ENCOUNTER → 2024-12-18 15:00 | Outpatient (BNV) | payer OTHER, SELFPAY | PROVIDERS: PCP Internal Medicine; Visit Provider Internal Medicine | DX: Z12.31 Encounter for screening mammogram for malignant neoplasm of breast (principal) | CPT/HCPCS: 77063; 77067 ==

== ENCOUNTER 2024-12-25 14:03 | Outpatient (AMB) | payer OTHER, SELFPAY ==
--- NOTE | 2024-12-25 14:07 | A.OFFVIS_ITS ---
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 She is doing well with no active directory administrator concerns. Currently not sexually active w/ due to medical concerns. Denies any vaginal dryness or irritation. STI testing offered; she declined. Attempting to eat a healthy diet with calcium and vitamin D and stays active with exercise-Caty 3xwk. Concerned of a weight gain over the/year admits to having sugar (chocolates). Last pap smear; 2019. Last mammogram; 2024. Colonoscopy is UTD. Denies any family history of breast, ovarian or colon cancer. [facility] Medical History Depression, controlled History of shingles Intra-articular loose body Lesion of bone of ankle Vitamin D deficiency Dyslipidemia Obesity (BMI 30-39.9) Seasonal allergies Diabetes mellitus with microalbuminuria, without long-term current use of insulin Essential hypertension Type 2 diabetes mellitus without complication, without long-term current use of insulin Mixed dyslipidemia Hx of gastroesophageal reflux (GERD) Surgical History H/O foot surgery Hx of section Family History Father Hypertension Kidney disease Mother Hypertension Stroke Brother No problems noted. Brother No problems noted. Brother No problems noted. Brother No problems noted. Sister No problems noted. Sister No problems noted. Sister No problems noted. Sister No problems noted. Son No problems noted. 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 Gender identity: Female Cognitive needs: No Hearing needs: No Vision needs: No Female Reproductive History Menstrual Age of Menarche: 14 Total pregnancies: 2 Full term: 1 Number of Living Children: 1 Ab spontaneous: 1 Date of last pap smear: 05/27/20 (neg pap and hpv) Date of Mammogram: 12/18/24 Review of Systems Const All systems reviewed & are unremarkable except as noted in HPI and below Reports as per HPI Eyes Reports no additional complaints ENT Reports no additional complaints Card Reports no additional complaints Resp Reports no additional complaints GI Reports as per HPI and Reports no additional complaints Reports as per HPI Musc Reports no additional complaints Skin/Breast Reports as per HPI Neuro Reports no additional complaints Psych Reports no additional complaints Endo Reports no additional complaints Claudy/Lymph Reports no additional complaints Aller/Immun Reports no additional complaints Physical Exam Vital Signs: Last Vital Signs BP 126/80 12/25/24 14:11 BMI result Body Mass Index 37.5 Const General: cooperative, healthy appearing, no acute distress, well developed and alert Orientation/consciousness: patient oriented x3 HEENT Head: Yes normal to inspection Eyes General: appearance normal, both eyes and all related structures Neck Neck: Yes normal visual inspection Thyroid: Thyroid normal Chest Chest palpation & inspection: normal inspection of the chest and other (no puckering, dimpling, peau de orange, retraction, discharge, masses) Breast/axilla inspection: normal inspection of the breasts Breast/axilla palpation: normal palpation of the breasts Resp Effort & Inspection: normal respiratory effort GI Inspection: Yes normal to inspection Palpation (GI): Soft to palpation Rectal Exam - Female: deferred General: Yes bladder normal to palpation External Female Exam: normal external appearance and normal appearance of the urethra Speculum Exam - Vagina: normal appearance of the vagina, normal palpation, normal vaginal discharge and vagina atrophic (Moderate to severe atrophy) Speculum Exam - Cervix: normal appearance of the cervix, normal palpation and Other cervical findings present (Atrophic changes, bled with Pap) Bimanual exam- vagina & uterus: normal bimanual exam, normal palpation, uterine size normal, bladder normal to palpation, normal palpation and non-tender Bimanual Exam- Adnexa, other: no masses Skin General skin exam: no rashes or lesions noted Rashes: no rashes Neuro General: patient oriented x3 Cognition (Neuro): normal cognition Extrem General: Yes normal to inspection Psych Attitude: cooperative Thought process: Normal thought process present Assessment & Plan Assessment & Plan (1) Well woman exam with routine gynecological exam: Code(s): Z01.419 - Encounter for gynecological examination (general) (routine) without abnormal findings Category: Medical Plan Discussed: Current recommendations for pap smears per ASCCP guidelines. Breast awareness, periodic self breast exams and yearly mammogram. Pap obtained today. Maintain a healthy lifestyle, well balanced diet including Calcium 1,200 mg and Vitamin D 600 IU daily, and routine exercise. Mediterranean diet and osteoporosis prevention handouts dispensed. Eliminate sugars and processed foods. Contact the office with any postmenopausal bleeding. Patient verbalizes understanding and agrees to the plan of care. She was given opportunity to ask questions and all questions were answered to the best of my ability. RTO in 1 year for annual active directory administrator exam. This note is constructed using voice recognition software. While every effort has been made to ensure accuracy, industrial designer errors may have been included. Orders: Orders HPV High risk Today Z01.419 - Encounter for gynecological examination (general) (routine) without abnormal findings Pap Smear Today Z01.419 - Encounter for gynecological examination (general) (routine) without abnormal findings Coding Level of Care Code Est Pt Prev Care 40-64y(01225) Diagnoses Well woman exam with routine gynecological exam Z01.419
[2024-12-25 14:11] VITALS: BP 126/80; BMI 37.5
== END 2024-12-25 15:26 | disposition home or self-care (01) ==
LOC: HO.HWS 14:03
PROVIDERS: PCP Internal Medicine; Visit Provider Advanced Practice Midwife
DX: Z01.419 Encounter for gynecological examination (general) (routine) without abnormal findings (principal)
CPT/HCPCS: 99396; 99459

== ENCOUNTER 2024-12-25 14:03 | Outpatient (REF) | payer OTHER, SELFPAY ==
[2024-12-31 11:26] LABS: HPV Genotype 16 Negative (Negative); HPV Genotype 18 Negative (Negative); HPV High Risk Negative (Negative)
== END 2024-12-25 14:04 | disposition home or self-care (01) ==
LOC: HO.LNP 14:03
PROVIDERS: PCP Internal Medicine; Visit Provider Advanced Practice Midwife
DX: Z01.419 Encounter for gynecological examination (general) (routine) without abnormal findings (principal); Z11.51 Encounter for screening for human papillomavirus (HPV)
CPT/HCPCS: 87626; 88175

== ENCOUNTER 2024-12-27 06:01 | Outpatient (REF) | payer OTHER, SELFPAY ==
[2024-12-27 10:30] LABS: Estimated Average Glucose 183 mg/dL; Hemoglobin A1C 225.7967 umol/L
[2024-12-27 10:38] LABS: Alanine Aminotransferase 97 U/L (0-31); Anion Gap 13 (12-20); Aspartate Amino Transferase 89 U/L (5-31); Blood Urea Nitrogen 17 mg/dL (9-16); Calcium 9.5 mg/dL (8.4-10.2); Carbon Dioxide 26 mmol/L (22-29); Chloride 104 mmol/L (96-108); Cholesterol 149 mg/dL (<200); Estimated Glomerular Filt Rate > 60; Glucose Fasting 201 mg/dL (60-99); HDL Cholesterol 40 mg/dL (>40); LDL Cholesterol Calculated 77 mg/dL (<100); Potassium 3.4 mmol/L (3.3-5.1); Sodium 140 mmol/L (135-145); Triglycerides 163 mg/dL (<150)
[2024-12-27 10:56] LABS: Creatinine Urine 163.81 mg/dL; Microalbum/Creatinine Ratio Ur 52.4 ug/mg cr (<30)
== END 2024-12-27 06:02 | disposition home or self-care (01) ==
LOC: HO.HMGCLDS 06:01
PROVIDERS: PCP Internal Medicine; Visit Provider Internal Medicine
DX: E11.29 Type 2 diabetes mellitus with other diabetic kidney complication (principal); R80.9 Proteinuria, unspecified; I10 Essential (primary) hypertension; E78.2 Mixed hyperlipidemia
CPT/HCPCS: 36415; 80048; 80061; 82043; 82570; 83036; 84450; 84460

== ENCOUNTER 2025-01-02 11:53 | Outpatient (AMB) | payer OTHER, SELFPAY ==
[2025-01-02 12:01] VITALS: BP 122/78; PULSE 78; RESP 17; O2SAT 98; BMI 37.5
--- NOTE | 2025-01-02 12:01 | A.OFFPC_ITS ---
Vital Signs 01/02/25 12:01 Height 5 ft 2 in Weight 205 lb BMI 37.5 BP 122/78 Blood Pressure Location Lt brachial Position Sitting Respiration 17 Pulse 78 Pulse Source Pulse Oximeter Pulse Oximetry (%) 98 Oxygen Delivery Method Room Air Intake Visit Reasons: Annual PE Intake Note: Pt is here today for her PE: last mammogram 12/18/24, papsmear 12/26/24, colonoscopy 11/20/20 Allergies amoxicillin Allergy (Unknown, Verified 01/02/25 12:21) itchy, itching atorvastatin Allergy (Unknown, Verified 01/02/25 12:21) itchy, itching doxycycline Allergy (Unknown, Verified 01/02/25 12:21) hives Medication List - Last Reconciled 01/02/25 by Claire Castillo MD acetaminophen 1,000 mg (2 x 500 mg) PO Q6H PRN amlodipine 5 mg PO DAILY blood sugar diagnostic (FreeStyle Lite Strips) Test blood sugar BID AC blood-glucose meter (FreeStyle Lite Meter kit) As directed lancets (FreeStyle Lancets) Test blood sugar once a day lisinopril-hydrochlorothiazide 20-12.5 mg 1 tab PO DAILY metformin 500 mg PO DAILY rosuvastatin 5 mg PO DAILY sertraline 50 mg PO DAILY Tobacco use date assessed: 01/02/25 Dental Screening Dental Screen Date: 01/02/25 Did you have a dental visit in the last 12 months?: Yes Did you have a dental problem in the last 6 months where you did not have access to dental care?: No Was dental information given to patient?: Patient has dentist HPI Annual PE HPI Details 54-year-old lady with history of hyperte nsion, diabetes mellitus, dyslipidemia, obesity, and depression, here today for her physical exam. She has been taking her medicines as directed but has not been compliant with diet, has been eating lot of bread and not getting any regular exercise except for [employer] classes twice a week. Latest fasting labs showed hemoglobin A1c at 8% and fasting lipids with elevated triglycerides. Urine came back positive for microalbuminuria. She is up-to-date with her screening mammogram and cervical cancer screening, goes to [facility] [place] [facility]. Up-to-date with her screening colonoscopy done in 2020 due again in 2030. [facility] Medical History Depression, controlled History of shingles Intra-articular loose body Lesion of bone of ankle Vitamin D deficiency Dyslipidemia Obesity (BMI 30-39.9) Seasonal allergies Diabetes mellitus with microalbuminuria, without long-term current use of insulin Essential hypertension Type 2 diabetes mellitus without complication, without long-term current use of insulin Mixed dyslipidemia Hx of gastroesophageal reflux (GERD) Surgical History H/O foot surgery Hx of section Family History Father Hypertension Kidney disease Mother Hypertension Stroke Brother No problems noted. Brother No problems noted. Brother No problems noted. Brother No problems noted. Sister No problems noted. Sister No problems noted. Sister No problems noted. Sister No problems noted. Son No problems noted. 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 Questionnaire PHQ-9 Over the last 2 weeks, how often have you been bothered by any of the following problems? 1. Little interest or pleasure in doing things: not at all 2. Feeling down, depressed, or hopeless: not at all 3. Trouble falling or staying asleep, or sleeping too much: not at all 4. Feeling tired or having little energy: not at all 5. Poor appetite or overeating: not at all 6. Feeling bad about yourself - or that you are a failure or have let yourself or your family down: not at all 7. Trouble concentrating on things, such as reading the newspaper or watching television: not at all 8. Moving or speaking so slowly that other people could have noticed. Or the opposite - being so fidgety or restless that you have been moving around a lot more than usual: not at all 9. Thoughts that you would be better off or of hurting yourself in some way: not at all Total score: 0 Depression Screening Interpretation: Negative Depression Screening Done: Yes 77616 - PHQ-9 Billing: Yes Source: Developed by Drs. Tay Kendall, Monet Blandon, Ritesh Miner and colleagues, with an educational yifan from [employer]. Thrive Questionnaire Date Thrive assessed: 01/02/25 I am a: Patient What is your living situation today?: I have a steady place to live Within the past 12 months, did the food you bought not last and you didn't have the money to get more?: Never true Within the past 12 months, did you worry whether your food would run out before you got money to buy more?: Never true Do you have trouble paying for medicines?: No Do you have trouble getting transportation to medical appointments?: No Do you have trouble paying your heating and electricity bill?: No Do you have trouble taking care of your child, family member or friend?: No Do you have trouble with day-to-day activities such as bathing, preparing meals, shopping, managing finances, etc.?: No Are you currently unemployed and looking for a job?: No Are you interested in more education?: No Please select the resources that you would like help with: None Currently or been in a relationship where the following occur: I choose not to answer THRIVE Score: 0 AUDIT C Alcohol Use Questionnaire (AUDIT-C) 1. How often do you have a drink containing alcohol?: Never 3. How often do you have six or more drinks on one occasion?: Never Total Score: 0 Score Reviewed/Action Taken: Yes EDI-7 AMB Questionnaire EDI-7 Date EDI - 7 assessed: 01/02/25 Feeling nervous, anxious, or on edge: 0 = Not at all Not being able to stop or control worryin = Not at all Worrying too much about different things: 0 = Not at all Trouble relaxin = Not at all Being so restless that it is hard to sit still: 0 = Not at all Becoming easily annoyed or irritable: 0 = Not at all Feeling afraid as if something awful might happen: 0 = Not at all Total EDI-7 score (0-4 normal; 5-9 mild; 10-14 moderate; 15-21 severe): 0 Source: Developed by Drs. Tay Kendall, Monet Blandon, Ritesh Miner and colleagues, with an educational yifan from [employer]. EDI-7 Assessment Billing EDI-7 Assessment Tool: EDI-7 Assessment 96583 Review of Systems Const Reports as per HPI Eyes Reports no additional complaints ENT Reports no additional complaints Card Reports no additional complaints Resp Reports no additional complaints GI Reports as per HPI and Reports no additional complaints Reports as per HPI Musc Reports no additional complaints Skin/Breast Reports as per HPI Neuro Reports no additional complaints Psych Reports no additional complaints Endo Reports no additional complaints Claudy/Lymph Reports no additional complaints Aller/Immun Reports no additional complaints Physical exam (Primary Care) Vital Signs: Last Vital Signs Pulse 78 01/02/25 12:01 Resp 17 01/02/25 12:01 BP 122/78 01/02/25 12:01 Pulse Ox 98 01/02/25 12:01 Oxygen Delivery Method Room Air 01/02/25 12:01 BMI result Body Mass Index 37.5 Tobacco/Smoking Status: Tobacco use Status Tobacco use date assessed 01/02/25 01/02/25 12:03 Patient Tobacco Use Status Never used Tobacco 01/02/25 12:03 e-Cigarette/Vaping Use Never Used 01/02/25 12:03 PHQ-9: PHQ-9 Score PHQ-9: Total score 0 01/02/25 12:08 Depression Screening Interpretation: Negative Thrive Assessment: Date of Thrive Assessment Date Thrive assessed 01/02/25 01/02/25 12:03 Currently or been in a relationship where the following occur: I choose not to answer Const Other: Alert , obese, oriented x3, no acute distress noted ambulatory with normal gait HENCO Ears: hearing grossly normal bilaterally General nose exam: Normal external nose present Mouth: Normal oral and palatal mucosa present and moist mucous membranes Eyes General: appearance normal, both eyes and all related structures Neck Neck: Yes full ROM, Yes no lymphadenopathy and Yes supple Chest Chest palpation & inspection: normal inspection of the chest Breast/axilla palpation: normal palpation of the breasts Resp Auscultation: clear to auscultation bilaterally Cardio Other: S1-S2 present regular rate and rhythm GI Other: Normal bowel sounds, soft, nontender, no mass palpated General: Yes no CVA tenderness and Yes deferred (Sees [facility] [place] [facility]) Back/Spine/Pelvis Back: no CVA tenderness and No back tenderness Skin General skin exam: no rashes or lesions noted Neuro General: tone normal, Normal light touch and pain sensation, no focal motor deficits and CN's II-XI intact bilaterally Extrem General: Yes no joint enlargement, Yes no pedal edema, Yes no calf tenderness, Yes normal gait and No calf tenderness Psych Appearance: grossly normal and well kempt Mental Status: mental status grossly normal Speech and movement: Normal speech and movement present Affect: normal affect Thought process: Normal thought process present Thought content: Normal thought content present Immunizations pneumoc 20-cairn conj-dip cr(PF) 0.5 mL IM syringe Performing Provider: Claire Castillo MD Performing Location: [facility] Administered by: Renae Gomez CMA on 01/02/25 12:50 Dose Route Admin Location Dispensed Lot Number Expiration Date [facility] Civil Preparedness Officer 0.5 mL IM Left Deltoid 0.5 mL [id number] 02/26/26 9022-9491-23 [employer] VIS Given Date VIS Provided VIS Publication Date 01/02/25 Single Vaccine 21 Eligibility Eligibility Date Funding Source Not [facility] Eligible 01/02/25 Private Results Reviewed Results Reviewed: Laboratory Tests 12/27/24 06:17 Estimat Average Glucose 183 Hemoglobin A1c % 8.0 H Urine Creatinine 163.81 Urine Microalbumin 86.0 Microalb/Creat Ratio 52.4 H Name: Leandro Núñez Age/Sex: 54/F : 1970 Unit#: [id number] Attend Dr: Claire Castillo MD Re12/27/24 Status: DEP REF Location: [facility] Disch: SPEC : [id number] DAVID: 12/27/24 STATUS: COMP REQ : [id number] RECD: 12/27/24-[address]: Claire Castillo MD COMP: 12/27/24-1037 ENTERED: 12/27/24-[address]: ORDERED: Met Prof Fast, AST, ALT, Lipid Panel Test Result Flag Reference Sodium 140 135-145 mmol/L Potassium 3.4 3.3-5.1 mmol/L CL 104 96-108 mmol/L CO2 26 22-29 mmol/L Gap 13 12-20 BUN 17 H 9-16 mg/dL Creat 0.69 0.5-1.4 mg/dL eGFR > 60 Chronic Kidney Disease: Estimated GFR < 60 mL/min/1.73m2 Severe Kidney Disease: Estimated GFR < 15 mL/min/1.73m2 FBS 201 H 60-99 mg/dL A fasting glucose of 126 mg/dl or greater on more than one occasion is considered diagnostic of diabetes. CA 9.5 8.4-10.2 mg/dL AST (GOT) 89 H 5-31 U/L ALT (GPT) 97 H 0-31 U/L Triglyceride 163 H <150 mg/dL Desirable Triglyceride: less than 150 mg/dL Borderline High Triglyceride 150-199 mg/dL High Triglyceride: 200-499 mg/dL Very High Triglyceride: greater than or equal to 5OO mg/dL Cholesterol 149 <200 mg/dL Desirable Cholesterol: less than 200 mg/dL Borderline High Cholesterol: 200-239 mg/dL High Cholesterol: greater than 239 mg/dL LDL Calculated 77 <100 mg/dL Desirable LDL: less than 100 mg/dL Near Optimal/Above Optimal LDL: 110-129 mg/dL Borderline High LDL: 130-159 mg/dL High LDL: 160-189 mg/dL Very High LDL: greater than or equal to 190 mg/dL HDL 40 L >40 mg/dL Desirable HDL: greater than 40 mg/dL Note: This HDL assay may give artificially low results in patients with liver disease. Coding Level of Care Code Est Pt Prev Care 40-64y(00050) Diagnoses Annual visit for general adult medical examination with abnormal findings Z00.01 Mixed dyslipidemia E78.2 Essential hypertension I10 Diabetes mellitus with microalbuminuria, without long-term current use of insulin E11.29; R80.9 Depression, controlled F32.A Obesity (BMI 30-39.9) E66.9 Additional Codes EDI-7 Assessment Billing - EDI-7 Assessment Tool: EDI-7 Assessment 57147 ([id number]) PHQ-9 - 94402 - PHQ-9 Billing: Yes ([id number]) Assessment & Plan Assessment & Plan (1) Annual visit for general adult medical examination with abnormal findings: Code(s): Z00.01 - Encounter for general adult medical examination with abnormal findings Plan: Reviewed recent fasting lab results with patient.. Recommended dental visit every 6 months and regular yearly eye exam.. Take adequate calcium in diet and vitamin-D 3 at 2000 IU per cap once a day, in addition to weight-bearing exercises to help maintain good muscle tone and weight control. Instructed to do self-breast exam, and continue with yearly mammogram, currently up-to-date, goes to [facility] for her routine Pap and pelvic exam which is also up-to-date. Up-to-date with her vaccines but did not want to get any further COVID boosters. Prevnar 20 given today. Repeat fasting labs again in 04/2025 (2) Mixed dyslipidemia: Code(s): E78.2 - Mixed hyperlipidemia Category: Medical Plan: Lipids within normal limits except for elevated triglycerides, will continue rosuvastatin 5 mg daily (3) Essential hypertension: Code(s): I10 - Essential (primary) hypertension Category: Medical Plan: Blood pressure at goal of less than 130/80. Continue with lisinopril-HCTZ 20- 12.5 mg taken once a day and amlodipine 5 mg daily Reinforced importance of following a low sodium diet, getting regular exercise, and lowering stress levels. (4) Diabetes mellitus with microalbuminuria, without long-term current use of insulin: Code(s): E11.29 - Type 2 diabetes mellitus with other diabetic kidney complication; R80.9 - Proteinuria, unspecified Category: Medical Plan: Diabetes mellitus poorly controlled with hemoglobin A1c now up to 8%. Increase metformin dose to 500 mg to take 1 tablet twice a day with meals. Started on Jardiance 10 mg 1 tablet daily to be taken once a day in a.m. an hour before breakfast. Reinforced importance of adhering to recommended diabetic diet and getting regular exercise at least 30 minutes of cardio exercise daily. Reminded to get her yearly diabetes eye exam up-to-date with her flu vaccine and shingles vaccine, Prevnar 20 given today. Follow-up in 04/2025 after fasting labs done (5) Depression, controlled: Code(s): F32.A - Depression, unspecified Category: Medical Plan: Mood controlled on sertraline 50 mg daily will continue (6) Obesity (BMI 30-39.9): Code(s): E66.9 - Obesity, unspecified Category: Medical Plan: Discussed need to increase activity and weight reduction. Recommended focusing on improving health instead of dieting. Mediterranean diet is a healthy diet that helps, limit food high in fat, sugar, and calories. Eat slowly, pay attention to portion sizes, plan your meals ahead of time, start regular physical activity, at least 150 minutes of moderate intensity exercise, or 90 minutes per week of vigorous exercise. Orders: Orders Lipid Panel 04/29/25. - Type 2 diabetes mellitus with other diabetic kidney complication, E78.2 - Mixed hyperlipidemia, I10 - Essential (primary) hypertension, R80.9 - Proteinuria, unspecified Alanine Aminotransferase 04/29/25 - Type 2 diabetes mellitus with other diabetic kidney complication, E78.2 - Mixed hyperlipidemia, I10 - Essential (primary) hypertension, R80.9 - Proteinuria, unspecified Hemoglobin A1c 04/29/25 - Type 2 diabetes mellitus with other diabetic kidney complication, E78.2 - Mixed hyperlipidemia, I10 - Essential (primary) hypertension, R80.9 - Proteinuria, unspecified Aspartate Amino Transferase 04/29/25. - Type 2 diabetes mellitus with other diabetic kidney complication, E78.2 - Mixed hyperlipidemia, I10 - Essential (primary) hypertension, R80.9 - Proteinuria, unspecified Vitamin D 25-OH Total 04/29/25 - Type 2 diabetes mellitus with other diabetic kidney complication, E78.2 - Mixed hyperlipidemia, I10 - Essential (primary) hypertension, R80.9 - Proteinuria, unspecified Basic Metabolic Panel Fasting 04/29/25. - Type 2 diabetes mellitus with other diabetic kidney complication, E78.2 - Mixed hyperlipidemia, I10 - Essential (primary) hypertension, R80.9 - Proteinuria, unspecified Medications: New Jardiance (empagliflozin) Take 1 tablet 1 hour before breakfast in the more 10 mg PO QAM 30 tabs 5RF NS Changed From metformin take with supper 500 mg PO DAILY 90 tabs 3RF To metformin take with supper 500 mg PO BID 3 months 180 tabs 3RF
== END 2025-01-02 12:53 | disposition home or self-care (01) ==
PROVIDERS: PCP Internal Medicine; Visit Provider Internal Medicine
DX: Z00.00 Encounter for general adult medical examination without abnormal findings (principal); E11.29 Type 2 diabetes mellitus with other diabetic kidney complication; E66.9 Obesity, unspecified; Z68.37 Body mass index [BMI] 37.0-37.9, adult; E78.2 Mixed hyperlipidemia; I10 Essential (primary) hypertension; R80.9 Proteinuria, unspecified; F32.A Depression, unspecified; Z23 Encounter for immunization

== ENCOUNTER → 2025-01-02 11:53 | Outpatient (BNVA) | payer OTHER, SELFPAY | PROVIDERS: PCP Internal Medicine; Visit Provider Internal Medicine | DX: Z00.01 Encounter for general adult medical examination with abnormal findings (principal); Z23 Encounter for immunization; E78.2 Mixed hyperlipidemia; I10 Essential (primary) hypertension; E11.29 Type 2 diabetes mellitus with other diabetic kidney complication; R80.9 Proteinuria, unspecified; F32.A Depression, unspecified; E66.9 Obesity, unspecified; Z79.84 Long term (current) use of oral hypoglycemic drugs; Z79.899 Other long term (current) drug therapy | CPT/HCPCS: 90471; 90677; 96127 ==

== ENCOUNTER 2025-02-24 14:47 | Outpatient (AMB) | payer OTHER, SELFPAY ==
--- NOTE | 2025-02-24 15:03 | A.OFFVIS_ITS ---
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/ Espinas Intake Note: New patient was in [facility] in Jul had abnormal ekg c/o chest pain and palpitations at rest mostly in bed Regulatory Leader Required: No Allergies amoxicillin Allergy (Unknown, Verified 01/02/25 12:21) itchy, itching atorvastatin Allergy (Unknown, Verified 01/02/25 12:21) itchy, itching doxycycline Allergy (Unknown, Verified 01/02/25 12:21) hives HPI Comments Details: Thank you for referring Leandro in cardiology consultation today for episode of chest pain in July at which time she had presented to the emergency room at [facility]. At the time EKGs shown some T-wave inversion biphasic changes. Since then she has had better control blood pressure and currently taking triple therapy with lisinopril-hydrochlorothiazide combination in addition to amlodipine therapy. With the addition of amlodipine she says a blood pressures been much better controlled. She has not had any significant chest pain since then. Denies any heart failure symptoms. No orthopnea, PND, leg edema. She also diagnose with diabetes hemoglobin A1c of 8%. Her metformin was increased to twice a day and was also advise Jardiance therapy although she was not taking Jardiance at this point time. Also on low-dose rosuvastatin therapy. No strong family history of premature coronary artery disease. She says she remains very active and occasionally exercises and has no clear exertional chest pain or shortness of breath. She does have symptoms of rapid heart rate mostly happening at nighttime lasting for few minutes. No obvious diagnose has been made as of yet. She denies any clear orthopnea, PND, leg edema. [facility] Medical History Depression, controlled History of shingles Intra-articular loose body Lesion of bone of ankle Vitamin D deficiency Dyslipidemia Obesity (BMI 30-39.9) Seasonal allergies Diabetes mellitus with microalbuminuria, without long-term current use of insulin Essential hypertension Type 2 diabetes mellitus without complication, without long-term current use of insulin Mixed dyslipidemia Hx of gastroesophageal reflux (GERD) Surgical History H/O foot surgery Hx of section Family History Father Hypertension Kidney disease Mother Hypertension Stroke Brother No problems noted. Brother No problems noted. Brother No problems noted. Brother No problems noted. Sister No problems noted. Sister No problems noted. Sister No problems noted. Sister No problems noted. Son No problems noted. 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 Gender identity: Female Cognitive needs: No Hearing needs: No Vision needs: No Female Reproductive History Menstrual Age of Menarche: 14 Review of Systems Const Denies chills, Denies daytime sleepiness, Denies fatigue, Denies fever(s), Denies frequent falls, Denies poor appetite, Denies snoring, Denies stops breathing during sleep, Denies weakness, Denies weight gain and Denies weight loss Eyes Denies loss of vision ENT Denies dizziness and Denies hearing loss Card Denies chest pain, Denies claudication, Denies leg edema, Denies lightheadedness, Denies palpitations, Denies dyspnea, Denies dyspnea on exertion and Denies orthopnea Resp Denies cough, Denies excessive phlegm production, Denies dyspnea, Denies dyspnea on exertion, Denies snoring and Denies wheezing GI Denies abdominal pain, Denies hematochezia, Denies change in bowel habits, Denies nausea and Denies vomiting Denies urinary frequency and Denies dysuria Musc Denies arthralgias, Denies muscle weakness, Denies numbness and Denies other (frequent falls) Skin/Breast Denies nail changes and Denies rash Neuro Denies Abnormal speech present, Denies dizziness, Denies frequent falls, Denies loss of vision, Denies memory loss, Denies numbness and Denies weakness Psych Denies depression and Denies memory loss Endo Denies fatigue and Denies palpitations Claudy/Lymph Reports easy bruising and Reports other (anemia) Aller/Immun Denies wheezing Physical Exam Vital Signs: Last Vital Signs Pulse 73 02/24/25 15:04 BP 110/70 02/24/25 15:04 BMI result Body Mass Index 35.5 Const General: cooperative, comfortable, no acute distress, alert, awake, Physically active and well groomed Nutritional Appearance: obese Orientation/consciousness: patient oriented x3 Limitations: no limitations HEENT Head: Yes normocephalic and Yes atraumatic Neck Neck: Yes trachea midline, Yes supple and Yes no JVD Resp Effort & Inspection: normal respiratory effort Auscultation: clear to auscultation bilaterally Cardio Jugular venous distension: no JVD Palpation: normal PMI Rate: regular rate Rhythm: regular rhythm Heart sounds: S1 normal heart sound present, S2 normal heart sound present, no click, no gallops, no murmurs and no rubs GI Auscultation: normal bowel sounds Skin General skin exam: no rashes or lesions noted Neuro General: patient oriented x3 and no focal motor deficits Speech: No Abnormal speech present Extrem General: Yes no clubbing, cyanosis or edema Psych Appearance: grossly normal Assessment & Plan Assessment & Plan (1) Chest pain: Code(s): R07.9 - Chest pain, unspecified Category: Medical Plan: Patient was 2 episodes of chest pains, with currently not having significant chest pain with exertion although had EKG changes suggestive of ischemia back then. EKG today shows normalized T-wave changes. This could all be related to high blood pressure although she was significant risk factors for obstructive coronary artery disease including obesity, diabetes, hyperlipidemia as hypertension. Given her abnormal EKG I would suggest her to undergo ischemic workup with exercise to evaluate for myocardial blood flow and ruled out prognostically significant coronary artery disease. This was discussed with her. She understands and agrees. Also suggest to undergo echocardiogram to evaluate for hypertensive heart disease and determine both LV diastolic and systolic function as well as ruled out pulmonary hypertension. Meanwhile I have strongly encouraged her to continue pursue aggressively risk factor modification including aggressive blood pressure control which is currently well optimized on current therapy. Importance of current medical therapy was discussed with her. Continue aggressive diabetes management and strongly encouraged initiation of Jardiance therapy which has shown to reduce cardiovascular disease progression and consider addition of GLP 1 antagonist as well. Continue statin therapy for now. I strongly recommended to pursue aggressive weight loss program regular physical activity. She was understands and agrees. (2) Palpitations: Code(s): R00.2 - Palpitations Category: Medical Plan: Symptoms of intermittent episode of palpitation mostly happening at nighttime. This happens about once a week. Will suggest a 7 day Holter monitor to rule out atrial fibrillation for which she is at risk at. This was discussed with her. Avoidance of stimulants was discussed. Stress mitigation strategies were discussed. Will avoid pharmacotherapy for now. Will follow up in the clinic in 2 months time, sooner p.r.n.. Thank you for allowing me to partake in her care Coding Level of Care Code New Pt Level 4 (95344) Complex EM visit Add On G2211 Diagnoses Chest pain R07.9 Palpitations R00.2
[2025-02-24 15:04] VITALS: BP 110/70; PULSE 73; BMI 35.5
== END 2025-02-24 15:43 | disposition home or self-care (01) ==
LOC: HO.HCS 14:48
PROVIDERS: PCP Internal Medicine; Visit Provider Internal Medicine Cardiovascular Disease
DX: R07.9 Chest pain, unspecified (principal); R00.2 Palpitations
CPT/HCPCS: 99214

== ENCOUNTER → 2025-02-24 14:47 | Outpatient (BNVA) | payer OTHER, SELFPAY | PROVIDERS: PCP Internal Medicine; Visit Provider Internal Medicine Cardiovascular Disease ==

== ENCOUNTER → 2025-04-03 07:43 | Outpatient (REF) | payer OTHER, SELFPAY ==
--- NOTE | 2025-04-03 07:46 | CA_ITS ---
Transthoracic Echocardiogram Patient (Last, First, Middle): Leandro Núñez, Gender: Female Date of : 1970 Age: 54 Procedure Date: 04/03/2025 Procedure Type: Transthoracic Echocardiogram Location: OP Height: 157.48 cm Weight: 88. kg BSA: 1.89 m2 Heart Rate: 62 bpm BP: 110 / 70 mmHg Complaint Analyst: SB Referring MD: Mando Juares MD Symptoms: R07.9 - Chest pain, unspecified Study Quality: Adequate ECG Rhythm: Sinus Conclusions: - The left ventricular systolic function is normal. The calculated ejection fraction is 61% by biplane method. - No obvious valvular pathology seen on this study. Findings Left Ventricle Normal left ventricular cavity size. There is normal left ventricular wall thickness. The left ventricular systolic function is normal. The calculated ejection fraction is 61% by biplane method. There is no evidence of regional wall motion abnormalities. Diastolic function is normal for age. Right Ventricle Normal right ventricular cavity size and systolic function. Aortic Valve There is a normal trileaflet aortic valve. There is no aortic valve stenosis. There is no aortic valve regurgitation. Mitral Valve The mitral valve appears normal. There is trace mitral valve regurgitation. There is no mitral valve stenosis. Pulmonic Valve The pulmonic valve is likely normal. Tricuspid Valve There is no tricuspid valve regurgitation. There is no evidence of pulmonary hypertension. Great Vessels The asc aorta is normal in size. Venous The inferior vena cava is normal in size and collapses greater than 50% with inspiration. Pericardium/Pleural There is no evidence of pericardial effusion. Prior Study Comparison No significant change compared to prior study dated: 11/15/2012. Recommendations, Care & Conclusions No obvious valvular pathology seen on this study. Measurements 2D Linear Measurements IVSd: 0.98 0.6-0.9/0.6-1.0 cm LVIDd: 5.32 3.9-5.3/4.2-5.9 cm LVIDd Index: 2.81 2.4-3.2/2.2-3.1 cm/m2 LVIDs: 2.90 2.0-3.6 cm LVPWd: 0.86 0.7-1.1 cm LA Diam: 4.00 2.7-3.8/3.0-4.0 cm LAIDs Index: 2.12 1.5-2.3 cm/m2 LV Mass: 224.99 67-162/88-224 g LV Mass Index: 119.04 43-95/49-115 g/m2 LVOT Diam: 2.10 3.0+(-)1.3 cm 2D Systolic Function EF 4C: 64.40 >55% EF 2C: 57.90 >55% EF BiP: 60.50 >55% Mitral Valve MV Pk E: 0.75 MV PK A: 0.63 MV Decel Time: 221.00 E/A: 1.20 E'Lateral: 6.85 E'Medial: 5.44 E/E' Med: 13.70 E/E' Lat: 10.90 PHT: 65.00 MVA PHT: 3.38 Decel Mcculloch: 3.37 Aortic Valve AoV Pk Ruben: 1.33 AoV Pk Grad: 7.00 NEFTALI: 3.00 LVOT LVOT Pk Ruben: 1.12 LVOT Mn Ruben: 0.80 LVOT VTI: 0.23 LVOT Pk Grad: 5.00 LVOT Mn Grad: 3.00 LVOT Diam: 2.10 LVOT Area: 3.46 Diastolic Function MV Pk E: 0.75 MV Pk A: 0.63 E/A: 1.20 E'Medial: 5.44 E/E' Med: 13.70 E' Laterial: 6.85 E/E' Lat: 10.90 Right Ventricle TAPSE (mm): 20.00 TVS' Ruben: 15.00 Tricuspid Valve RA Press: 3.00 Great Vessels Aorta Sinus of Valsalva: 3.20 2.0-3.5 cm Ao Asc: 3.30 2.1-3.4 cm Ao Arch: 3.00 Pulmonary Veins Pulm Vein S/D 1.40 Pulmonary Valve PV Pk Ruben: 0.86 Peak PV Grad: 3.00 Updated in Other Vendor System with Status of Final Michael Cano MD electronically signed on 04/05/2025 11:36:17 AM with status of Final
== END ==
LOC: HO.CARD 07:43
PROVIDERS: PCP Internal Medicine; Visit Provider Internal Medicine Cardiovascular Disease
DX: R07.9 Chest pain, unspecified (principal); R00.2 Palpitations
CPT/HCPCS: 93242; 93306

== ENCOUNTER → 2025-04-03 07:46 | Outpatient (BNV) | payer OTHER, SELFPAY | PROVIDERS: PCP Internal Medicine; Visit Provider Internal Medicine | DX: I34.0 Nonrheumatic mitral (valve) insufficiency (principal) | CPT/HCPCS: 93306 ==

== ENCOUNTER 2025-04-29 10:51 | Outpatient (AMB) | payer OTHER, SELFPAY ==
[2025-04-29 11:12] VITALS: BP 118/72; PULSE 69; TEMP 36.6; O2SAT 98; BMI 35.1
--- NOTE | 2025-04-29 11:12 | AM.OFFWIN_ITS ---
Intake Vital Signs 04/29/25 11:12 Height 5 ft 2 in Weight 192 lb BMI 35.1 BP 118/72 Blood Pressure Location Rt brachial Position Sitting Pulse 69 Pulse Source Pulse Oximeter Temp 97.8 F Temp Source Oral Pulse Oximetry (%) 98 Oxygen Delivery Method Room Air Oxygen Flow Rate 97.8 Intake Visit Reasons: EP Swollen LT ankle-WC Intake Note: pt presents with lt ankle pain, swelling bruising x1 day Patient Tobacco Use Status: Never used Tobacco Allergies amoxicillin Allergy (Unknown, Verified 04/29/25 11:15) itchy, itching atorvastatin Allergy (Unknown, Verified 04/29/25 11:15) itchy, itching doxycycline Allergy (Unknown, Verified 04/29/25 11:15) hives Do you need a note to return to daycare/school/sports/work: Yes Return to daycare/school/sports/work/other note: work HPI HPI Comments History of Present Illness Details History of Present Illness - The patient is a 54-year-old female pr esenting with a swollen ankle following a strenuous activity at work. - The swelling began yesterday after ass isting a child at her workplace, which involves a lot of movement. - She did not notice the pain immediatel y but felt it while resting in the afternoon. - She states that the ankle was swollen and hurts to walk on today. - The patient has a history of a nerve i ssue in the right foot, which previously required surgery. - She denies numbness or tingling. - She denies calf pain, foot pain, or kn ee pain. Physical Exam General: Cooperative, healthy appearing, comfortable, no acute distress and well developed Respiratory: Normal respiratory effort and able to speak in complete sentences. Clear to auscultation bilaterally Cardiovascular: Regular rate and rhythm. Normal S1 and S2 Skin: No rashes or lesions noted. No abrasions or bruising noted. Neuro: Sensation intact Extremities: Swelling noted to the left lateral ankle. No deformity noted. FROM of the left ankle. TTP of the left malleolus. Strength is 5/5 on the LE bilaterally. Ambulates with a steady gait. Patient was informed and verbally consented to the use of an ambient scribe for clinic note documentation during this visit. [facility] Medical History Depression, controlled History of shingles Intra-articular loose body Lesion of bone of ankle Vitamin D deficiency Dyslipidemia Obesity (BMI 30-39.9) Seasonal allergies Diabetes mellitus with microalbuminuria, without long-term current use of insulin Essential hypertension Type 2 diabetes mellitus without complication, without long-term current use of insulin Mixed dyslipidemia Hx of gastroesophageal reflux (GERD) Surgical History H/O foot surgery Hx of section Family History Father Hypertension Kidney disease Mother Hypertension Stroke Brother No problems noted. Brother No problems noted. Brother No problems noted. Brother No problems noted. Sister No problems noted. Sister No problems noted. Sister No problems noted. Sister No problems noted. Son No problems noted. 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 Gender identity: Female Cognitive needs: No Hearing needs: No Vision needs: No Female Reproductive History Menstrual Age of Menarche: 14 Review of Systems Const All systems reviewed & are unremarkable except as noted in HPI and below Physical Exam Vital Signs: Last Vital Signs Temp 97.8 F 04/29/25 11:12 Pulse 69 04/29/25 11:12 BP 118/72 04/29/25 11:12 Pulse Ox 98 04/29/25 11:12 Oxygen Delivery Method Room Air 04/29/25 11:12 Oxygen Flow Rate 97.8 04/29/25 11:12 BMI result Body Mass Index 35.1 Results Reviewed Results Reviewed: Reviewed the ankle x-ray Assessment & Plan Assessment & Plan (1) Left ankle pain: Code(s): M25.572 - Pain in left ankle and joints of left foot Qualifiers: Chronicity: acute Qualified Code(s): M25.572 - Pain in left ankle and joints of left foot Plan Most likely sprain vs fracture Plan - An x-ray of the ankle will be performed to assess for any fractures or other injuries. - Rest, ice, and elevation - wear splint for support - follow up with PCP Orders: Orders XR ankle LT min 3V Today M25.572 - Pain in left ankle and joints of left foot Coding Level of Care Code Est Pt Level 4 (57988) Diagnoses Acute left ankle pain M25.572 Chronicity: acute
== END 2025-04-29 13:13 | disposition home or self-care (01) ==
PROVIDERS: PCP Internal Medicine; Visit Provider Physician Assistant Medical
DX: M25.572 Pain in left ankle and joints of left foot (principal)

== ENCOUNTER 2025-04-29 10:51 | Outpatient (REF) | payer OTHER, SELFPAY ==
--- NOTE | ~2025-04-29 | XR_ITS ---
EXAMINATION: XR ANKLE, LEFT CLINICAL INFORMATION: M25.572 - Pain in left ankle and joints of left foot COMPARISON: None available. TECHNIQUE: AP, lateral, and mortise views of the left ankle. FINDINGS: Ankle mortise is congruent. There is decreased tibiofibular overlap. There is borderline widening of the tibiofibular clear space. However, there is no widening of the medial clear space Talar dome is intact. No fracture lines are identified. Moderate enthesophytes are seen at the Achilles and plantar fascial attachments. There is a spur on the dorsal neck of talus. Soft tissue calcification is present posterior to the ankle joint. XR/XR ankle LT min 3V IMPRESSION: Borderline widening of the syndesmosis, correlate for signs and symptoms of high ankle sprain. There is a prominent spur on the dorsal neck of talus, correlate for signs symptoms of anterior ankle impingement. Nonspecific calcaneal spurs. Electronically signed by: Preston Estevez MD 04/29/2025 12:25 PM EDT
== END 2025-04-29 10:52 | disposition home or self-care (01) ==
LOC: HO.HMGCX 10:51
PROVIDERS: PCP Internal Medicine; Visit Provider Physician Assistant Medical
DX: M25.572 Pain in left ankle and joints of left foot (principal)
CPT/HCPCS: 73610; 99212

== ENCOUNTER → 2025-04-29 11:51 | Outpatient (BNV) | payer OTHER, SELFPAY | PROVIDERS: PCP Internal Medicine; Visit Provider Radiology Diagnostic Radiology | DX: M25.572 Pain in left ankle and joints of left foot (principal) | CPT/HCPCS: 73610 ==

== ENCOUNTER 2025-05-05 08:19 | Outpatient (AMB) | payer OTHER, SELFPAY ==
[2025-05-05 08:23] VITALS: BP 122/80; PULSE 71; TEMP 36.7; O2SAT 97; BMI 35.1
--- NOTE | 2025-05-05 08:23 | AM.OFFWIN_ITS ---
Intake Vital Signs 05/05/25 08:23 Height 5 ft 2 in Weight 192 lb BMI 35.1 BP 122/80 Blood Pressure Location Lt brachial Position Sitting Pulse 71 Pulse Source Pulse Oximeter Temp 98.1 F Temp Source Oral Pulse Oximetry (%) 97 Oxygen Delivery Method Room Air Intake Visit Reasons: EP LT foot pain~ WC still painful Intake Note: presents with continuous left foot and ankle pain Patient Tobacco Use Status: Never used Tobacco Allergies amoxicillin Allergy (Unknown, Verified 05/05/25 08:27) itchy, itching atorvastatin Allergy (Unknown, Verified 05/05/25 08:27) itchy, itching doxycycline Allergy (Unknown, Verified 05/05/25 08:27) hives Do you need a note to return to daycare/school/sports/work: Yes Return to daycare/school/sports/work/other note: work HPI HPI Comments History of Present Illness Details 54 y/o Female patient who presents to [facility] clinic with c/o Left Ankle pain and swelling - she injured her Foot at work 04/29/25. She was evaluated here 04/29 and Xrays showed Ankle Sprain. Today returns to clinic because she still has pain and her job requires her to be on her Feet, walking and prolonged standing. Pt asking for more addtional off work days. [facility] Medical History Depression, controlled History of shingles Intra-articular loose body Lesion of bone of ankle Vitamin D deficiency Dyslipidemia Obesity (BMI 30-39.9) Seasonal allergies Diabetes mellitus with microalbuminuria, without long-term current use of insulin Essential hypertension Type 2 diabetes mellitus without complication, without long-term current use of insulin Mixed dyslipidemia Hx of gastroesophageal reflux (GERD) Surgical History H/O foot surgery Hx of section Family History Father Hypertension Kidney disease Mother Hypertension Stroke Brother No problems noted. Brother No problems noted. Brother No problems noted. Brother No problems noted. Sister No problems noted. Sister No problems noted. Sister No problems noted. Sister No problems noted. Son No problems noted. 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 Gender identity: Female Cognitive needs: No Hearing needs: No Vision needs: No Female Reproductive History Menstrual Age of Menarche: 14 Review of Systems Const All systems reviewed & are unremarkable except as noted in HPI and below Physical Exam Vital Signs: Last Vital Signs Temp 98.1 F 05/05/25 08:23 Pulse 71 05/05/25 08:23 BP 122/80 05/05/25 08:23 Pulse Ox 97 05/05/25 08:23 Oxygen Delivery Method Room Air 05/05/25 08:23 BMI result Body Mass Index 35.1 Const General: no acute distress Nutritional Appearance: overweight Orientation/consciousness: patient oriented x3 Neuro General: patient oriented x3, gait normal and moves all extremities Motor exam (neuro): 5/5 motor strength present throughout Extrem Left lower extremity: ankle Details: normal to inspection and swelling (MIld Swelling with Limited ROM due to pain. ) Details: diffusely and foot (Ankle Brace on) Details: normal capillary refill, tenderness and toes with normal ROM; no crepitus Assessment & Plan Assessment & Plan (1) Sprain of left ankle: Code(s): S93.402A - Sprain of unspecified ligament of left ankle, initial encounter Qualifiers: Encounter type: initial encounter Involved ligament of ankle: unspecified ligament Qualified Code(s): S93.402A - Sprain of unspecified ligament of left ankle, initial encounter Plan: NSAIDs and Acetaminophen Ice/Hot Rest Gave Work Note for 3 days off Continue with Ankle Brace Ordered PT Orders: Orders PT Evaluation and Treatment Today S93.402A - Sprain of unspecified ligament of left ankle, initial encounter Coding Level of Care Code Est Pt Level 4 (80819) Diagnoses Sprain of left ankle, unspecified ligament, initial encounter S93.402A Encounter type: initial encounter Involved ligament of ankle: unspecified ligament Time Spent (min) 20
== END 2025-05-05 09:06 | disposition home or self-care (01) ==
PROVIDERS: PCP Internal Medicine; Visit Provider Nurse Practitioner Family
DX: S93.402A Sprain of unspecified ligament of left ankle, initial encounter (principal)

== ENCOUNTER → 2025-05-05 08:19 | Outpatient (BNVA) | payer OTHER, SELFPAY | PROVIDERS: PCP Internal Medicine; Visit Provider Nurse Practitioner Family | DX: S93.402D Sprain of unspecified ligament of left ankle, subsequent encounter (principal); X50.1XXD Overexertion from prolonged static or awkward postures, subsequent encounter | CPT/HCPCS: 99212 ==

== ENCOUNTER → 2025-05-06 13:39 | Outpatient (BNVA) | payer OTHER, SELFPAY | PROVIDERS: PCP Internal Medicine; Visit Provider Registered Nurse | DX: S93.402A Sprain of unspecified ligament of left ankle, initial encounter (principal); X50.1XXA Overexertion from prolonged static or awkward postures, initial encounter | CPT/HCPCS: 99202 ==

== ENCOUNTER → 2025-05-09 07:41 | Outpatient (REF) | payer OTHER, SELFPAY ==
--- NOTE | ~2025-05-09 | NM_ITS ---
Lexiscan Myocardial perfusion study Indication: Chest pain Technique: The patient was brought in for a Lexiscan perfusion study on 05/09/2025 and was injected 0.4 mg of Lexiscan intravenously. Within a minute of this injection 35 mCi of sestamibi was given intravenously. Images were obtained using the SPECT gamma camera interlaced with the gating device. Images were obtained in supine position. Resting perfusion study was performed on 05/12/2025. Patient was administered 35 mCi of sestamibi intravenously at rest. Images were then obtained in supine position. Total DLP 102 mGy-cm. Images were processed with the software and compared side to side in short axis, horizontal long axis and vertical long axis views. Findings: Raw aquisition reviewed. The stress perfusion study showed no significant perfusion modality. Inferior wall uptake is difficult to assess as there is intense subdiaphragmatic tracer uptake. With CT attenuation correction, there is no obvious perfusion abnormality. The gated study shows normal LV systolic function with calculated LVEF of 65%. LV cavity is normal in size. The gated study shows normal wall thickening and contraction of segments. Resting study shows no significant perfusion abnormality. Inferior wall assessment suboptimal due to subdiaphragmatic tracer uptake. With CT attenuation correction, overall, no significant abnormality. Gating at rest reveals normal wall motion with ejection fraction at 49%, but visually appears higher. The findings are consistent with no clear reversible or fixed perfusion abnormality. NM/NM cardiolite stress test Impression: 1. Myocardial perfusion imaging study shows probably normal myocardial perfusion. 2. Gated LVEF is 62% during stress and 49% during rest-but visually appears higher. 3. Transient ischemic dilatation not present. EKG component of the test reported separately. Electronically signed by: Michael Cano MD 05/13/2025 04:50 PM EDT
--- NOTE | 2025-05-09 07:43 | CA_ITS ---
Acquisition Time: 2025-05-09 08:14:13 Total Exercise Time: 00:02:00 Test Indications: Abnormal ECG,Palpitations Medications: SEE EMAR/PRINTOUT Protocol: LEXISCAN Max HR: 106 BPM 64% of Pred: 165 BPM Max BP: 136/64 mmHG Max Work Load: 1.0 METS Pharmacological stress test with Lexiscan while pt swings her legs in chair, with reports of SOB, headache, and nausea, without any arrythmias, with normotensive response to injection. T wave inversion with injection; basleine nonspecific ST- T waves. Nondiagnostic EKG for ischemia. In recovery, pt treated with IVP Aminophylline 75 mg to reverse Lexiscan after which pt feeling back to baseline. Nuclear images pending. Test reviewed with Dr. Lee. PS- Test switched to Lexiscan due to ankle sprain and difficulty walking. Referred By: Mando Juares Electronically Signed By: Wojciech Nicole
== END ==
LOC: HO.CARD 07:41
PROVIDERS: PCP Internal Medicine; Visit Provider Internal Medicine Cardiovascular Disease
DX: R07.9 Chest pain, unspecified (principal)
CPT/HCPCS: 78452; 93017; A9500; J0280; J2785

== ENCOUNTER → 2025-05-09 07:43 | Outpatient (BNV) | payer OTHER, SELFPAY | PROVIDERS: PCP Internal Medicine | DX: R07.9 Chest pain, unspecified (principal) | CPT/HCPCS: 78452; 93016; 93018 ==

== ENCOUNTER 2025-05-12 06:19 | Outpatient (REF) | payer OTHER, SELFPAY ==
[2025-05-12 10:59] LABS: Hemoglobin A1C 181.1963 umol/L; Total Hemoglobin (HGBA1C) 3775.6406 umol/L
[2025-05-12 11:13] LABS: Alanine Aminotransferase 36 U/L (0-31); Anion Gap 15 (12-20); Aspartate Amino Transferase 34 U/L (5-31); Blood Urea Nitrogen 14 mg/dL (9-16); Calcium 9.5 mg/dL (8.4-10.2); Carbon Dioxide 28 mmol/L (22-29); Chloride 103 mmol/L (96-108); Cholesterol 147 mg/dL (<200); Estimated Glomerular Filt Rate > 60; HDL Cholesterol 44 mg/dL (>40); Potassium 3.7 mmol/L (3.3-5.1); Sodium 142 mmol/L (135-145); Triglycerides 170 mg/dL (<150)
== END 2025-05-12 06:20 | disposition home or self-care (01) ==
LOC: HO.HMGCLDS 06:19
PROVIDERS: PCP Internal Medicine; Visit Provider Internal Medicine
DX: E11.29 Type 2 diabetes mellitus with other diabetic kidney complication (principal); I10 Essential (primary) hypertension; E78.2 Mixed hyperlipidemia; R80.9 Proteinuria, unspecified
CPT/HCPCS: 36415; 80048; 80061; 82306; 83036; 84450; 84460

== ENCOUNTER → 2025-05-13 09:49 | Outpatient (BNVA) | payer OTHER, SELFPAY | PROVIDERS: PCP Internal Medicine; Visit Provider Physician Assistant Medical | DX: S93.402D Sprain of unspecified ligament of left ankle, subsequent encounter (principal); X50.1XXD Overexertion from prolonged static or awkward postures, subsequent encounter | CPT/HCPCS: 99213 ==

== ENCOUNTER → 2025-05-27 10:02 | Outpatient (BNVA) | payer OTHER, SELFPAY | PROVIDERS: PCP Internal Medicine; Visit Provider Physician Assistant Medical | DX: S93.402D Sprain of unspecified ligament of left ankle, subsequent encounter (principal); X50.1XXD Overexertion from prolonged static or awkward postures, subsequent encounter | CPT/HCPCS: 99213 ==

== ENCOUNTER → 2025-06-17 09:38 | Outpatient (BNVA) | payer OTHER, SELFPAY | PROVIDERS: PCP Internal Medicine; Visit Provider Physician Assistant Medical | DX: S93.402D Sprain of unspecified ligament of left ankle, subsequent encounter (principal); X50.1XXD Overexertion from prolonged static or awkward postures, subsequent encounter | CPT/HCPCS: 99213 ==

== ENCOUNTER → 2025-07-08 09:24 | Outpatient (BNVA) | payer OTHER, SELFPAY | PROVIDERS: PCP Internal Medicine; Visit Provider Emergency Medicine | DX: S93.402D Sprain of unspecified ligament of left ankle, subsequent encounter (principal); X50.1XXD Overexertion from prolonged static or awkward postures, subsequent encounter; Z02.79 Encounter for issue of other medical certificate | CPT/HCPCS: 99213 ==

== ENCOUNTER 2025-07-14 11:31 | Outpatient (AMB) | payer OTHER, SELFPAY ==
--- NOTE | 2025-07-14 11:34 | A.OFFPC_ITS ---
Vital Signs 07/14/25 11:35 Height 5 ft 2 in Weight 195 lb BMI 35.7 BP 112/82 Blood Pressure Location Lt brachial Position Sitting Respiration 15 Pulse 86 Pulse Source Pulse Oximeter Temp 98.2 F Temp Source Oral Pulse Oximetry (%) 97 Oxygen Delivery Method Room Air Intake Visit Reasons: 4 month follow up Intake Note: Pt is here today for her 4mo. f/u Allergies amoxicillin Allergy (Unknown, Verified 07/14/25 12:17) itchy, itching atorvastatin Allergy (Unknown, Verified 07/14/25 12:17) itchy, itching doxycycline Allergy (Unknown, Verified 07/14/25 12:17) hives Medication List - Last Reconciled 07/14/25 by Claire Castillo MD amlodipine 5 mg PO DAILY blood sugar diagnostic (FreeStyle Lite Strips) Test blood sugar BID AC blood-glucose meter (FreeStyle Lite Meter kit) As directed empagliflozin (Jardiance) 10 mg PO QAM lancets (FreeStyle Lancets) Test blood sugar twice per day lisinopril-hydrochlorothiazide 20-12.5 mg 1 tab PO DAILY metformin ER 500 mg PO BID 3 months rosuvastatin 5 mg PO DAILY sertraline 50 mg PO DAILY Tobacco use date assessed: 07/14/25 Dental Screening Dental Screen Date: 07/14/25 Did you have a dental visit in the last 12 months?: Yes Did you have a dental problem in the last 6 months where you did not have access to dental care?: No Was dental information given to patient?: Patient has dentist HPI 4 month follow up HPI Details 54-year-old lady with hypertension, diab etes mellitus, dyslipidemia , and depression, here today for her follow-up. Has been compliant with taking her medications and has made lifestyle changes with regards to diet and getting regular exercise. Blood pressure stable and controlled on present treatment. Fasting lipids are within normal limits. Latest hemoglobin A1c is at 6.5%, depression controlled on sertraline [facility] Medical History Sprain of left ankle Depression, controlled History of shingles Intra-articular loose body Lesion of bone of ankle Vitamin D deficiency Dyslipidemia Obesity (BMI 30-39.9) Seasonal allergies Diabetes mellitus with microalbuminuria, without long-term current use of insulin Essential hypertension Type 2 diabetes mellitus without complication, without long-term current use of insulin Mixed dyslipidemia Hx of gastroesophageal reflux (GERD) Surgical History H/O foot surgery Hx of section Family History Father Hypertension Kidney disease Mother Hypertension Stroke Brother No problems noted. Brother No problems noted. Brother No problems noted. Brother No problems noted. Sister No problems noted. Sister No problems noted. Sister No problems noted. Sister No problems noted. Son No problems noted. 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 1. Little interest or pleasure in doing things: not at all 2. Feeling down, depressed, or hopeless: not at all 3. Trouble falling or staying asleep, or sleeping too much: not at all 4. Feeling tired or having little energy: not at all 5. Poor appetite or overeating: not at all 6. Feeling bad about yourself - or that you are a failure or have let yourself or your family down: not at all 7. Trouble concentrating on things, such as reading the newspaper or watching television: not at all 8. Moving or speaking so slowly that other people could have noticed. Or the opposite - being so fidgety or restless that you have been moving around a lot more than usual: not at all 9. Thoughts that you would be better off or of hurting yourself in some way: not at all Total score: 0 Depression Screening Interpretation: Negative Depression Screening Done: Yes Source: Developed by Drs. Tay Kendall, Monet Blandon, Ritesh Miner and colleagues, with an educational yifan from [employer]. Thrive Questionnaire Date Thrive assessed: 12/26/24 I am a: Patient What is your living situation today?: I have a steady place to live Within the past 12 months, did the food you bought not last and you didn't have the money to get more?: Never true Within the past 12 months, did you worry whether your food would run out before you got money to buy more?: Never true Do you have trouble paying for medicines?: No Do you have trouble getting transportation to medical appointments?: No Do you have trouble paying your heating and electricity bill?: No Do you have trouble taking care of your child, family member or friend?: No Do you have trouble with day-to-day activities such as bathing, preparing meals, shopping, managing finances, etc.?: No Are you currently unemployed and looking for a job?: No Are you interested in more education?: No Please select the resources that you would like help with: None Currently or been in a relationship where the following occur: I choose not to answer THRIVE Score: 0 AUDIT C Alcohol Use Questionnaire (AUDIT-C) 2. How many drinks containing alcohol do you have on a typical day when you are drinking?: 1 or 2 Total Score: 0 EDI-7 AMB Questionnaire EDI-7 Date EDI - 7 assessed: 01/02/25 Feeling nervous, anxious, or on edge: 0 = Not at all Not being able to stop or control worryin = Not at all Worrying too much about different things: 0 = Not at all Trouble relaxin = Not at all Being so restless that it is hard to sit still: 0 = Not at all Becoming easily annoyed or irritable: 0 = Not at all Feeling afraid as if something awful might happen: 0 = Not at all Total EDI-7 score (0-4 normal; 5-9 mild; 10-14 moderate; 15-21 severe): 0 Source: Developed by Drs. Tay Kendall, Monet Blandon, Ritesh Miner and colleagues, with an educational yifan from [employer]. Review of Systems Const Denies daytime sleepiness, Denies fatigue, Denies poor appetite and Denies weakness Eyes Denies change in vision ENT Denies dizziness Card Denies chest pain, Denies claudication, Denies leg edema, Denies lightheadedness, Denies palpitations and Denies dyspnea Resp Denies cough and Denies dyspnea GI Denies abdominal pain, Denies hematochezia and Denies change in bowel habits Denies urinary frequency and Denies dysuria Musc Denies arthralgias, Denies muscle weakness and Denies numbness Neuro Denies dizziness, Denies memory loss, Denies numbness and Denies weakness Psych Denies depression and Denies memory loss Endo Denies fatigue and Denies palpitations Claudy/Lymph Reports no additional complaints Aller/Immun Reports no additional complaints Physical exam (Primary Care) Vital Signs: Last Vital Signs Temp 98.2 F 07/14/25 11:35 Pulse 86 07/14/25 11:35 Resp 15 07/14/25 11:35 BP 112/82 07/14/25 11:35 Pulse Ox 97 07/14/25 11:35 Oxygen Delivery Method Room Air 07/14/25 11:35 BMI result Body Mass Index 35.7 Tobacco/Smoking Status: Tobacco use Status Tobacco use date assessed 07/14/25 07/14/25 11:38 Patient Tobacco Use Status Never used Tobacco 07/14/25 11:38 e-Cigarette/Vaping Use Never Used 07/14/25 11:38 PHQ-9: PHQ-9 Score PHQ-9: Total score 0 07/14/25 12:17 Depression Screening Interpretation: Negative Thrive Assessment: Date of Thrive Assessment Date Thrive assessed 12/26/24 07/14/25 11:38 Currently or been in a relationship where the following occur: I choose not to answer Const Other: Alert , obese, oriented x3, no acute distress noted ambulatory with normal gait [facility] Ears: hearing grossly normal bilaterally General nose exam: Normal external nose present Mouth: Normal oral and palatal mucosa present and moist mucous membranes Eyes General: appearance normal, both eyes and all related structures Neck Neck: Yes full ROM, Yes no lymphadenopathy and Yes supple Chest Chest palpation & inspection: normal inspection of the chest Breast/axilla palpation: normal palpation of the breasts Resp Auscultation: clear to auscultation bilaterally Cardio Other: S1-S2 present regular rate and rhythm GI Other: Normal bowel sounds, soft, nontender, no mass palpated General: Yes no CVA tenderness and Yes deferred (Sees [facility]) Back/Spine/Pelvis Back: no CVA tenderness and No back tenderness Skin General skin exam: no rashes or lesions noted Neuro General: tone normal, Normal light touch and pain sensation, no focal motor deficits and CN's II-XI intact bilaterally Extrem General: Yes no joint enlargement, Yes no pedal edema, Yes no calf tenderness, Yes normal gait and No calf tenderness Psych Appearance: grossly normal and well kempt Mental Status: mental status grossly normal Speech and movement: Normal speech and movement present Affect: normal affect Office Procedures Flu Questionnaire Does the patient have a severe egg allergy?: No Does the patient have severe life threatening allergies?: No Does the patient have a fever or illness today?: No Has the patient ever had Guillain-Tillar Syndrome?: No Has the patient ever had any past reaction to a flu shot?: No Immunizations Fluarix [id number] (PF) 45 mcg (15 mcg x 3)/0.5 mL IM syringe Performing Provider: Claire Castillo MD Performing Location: [facility] Administered by: Renae Gomez CMA on 07/14/25 12:06 Dose Route Admin Location Dispensed Lot Number Expiration Date [facility] C.O.D. Clerk 0.5 mL IM Right Deltoid 0.5 mL [id number] 04/28/26 [id number] [employer] VIS Given Date VIS Provided VIS Publication Date 07/14/25 Single Vaccine 24 Eligibility Eligibility Date Funding Source Not [facility] Eligible 07/14/25 Private Results Reviewed Results Reviewed: Name: Leandro Núñez Age/Sex: 54/F : 1970 Unit#: [id number] Attend Dr: Claire Castillo MD Re05/12/25 Status: DEP REF Location: [facility] Disch: SPEC : [id number] DAVID: 05/12/25 STATUS: COMP REQ : [id number] RECD: 05/12/25-[address]: Claire Castillo MD COMP: 05/12/25 ENTERED: 05/12/[address]: ORDERED: Met Prof Fast, AST, ALT, Lipid Panel, Vitamin D 25-OH Test Result Flag Reference Sodium 142 135-145 mmol/L Potassium 3.7 3.3-5.1 mmol/L CL 103 96-108 mmol/L CO2 28 22-29 mmol/L Gap 15 12-20 BUN 14 9-16 mg/dL Creat 0.75 0.5-1.4 mg/dL eGFR > 60 Chronic Kidney Disease: Estimated GFR < 60 mL/min/1.73m2 Severe Kidney Disease: Estimated GFR < 15 mL/min/1.73m2 FBS 133 H 60-99 mg/dL A fasting glucose of 126 mg/dl or greater on more than one occasion is considered diagnostic of diabetes. CA 9.5 8.4-10.2 mg/dL AST (GOT) 34 H 5-31 U/L ALT (GPT) 36 H 0-31 U/L Triglyceride 170 H <150 mg/dL Desirable Triglyceride: less than 150 mg/dL Borderline High Triglyceride 150-199 mg/dL High Triglyceride: 200-499 mg/dL Very High Triglyceride: greater than or equal to 5OO mg/dL Cholesterol 147 <200 mg/dL Desirable Cholesterol: less than 200 mg/dL Borderline High Cholesterol: 200-239 mg/dL High Cholesterol: greater than 239 mg/dL LDL Calculated 69 <100 mg/dL Desirable LDL: less than 100 mg/dL Near Optimal/Above Optimal LDL: 110-129 mg/dL Borderline High LDL: 130-159 mg/dL High LDL: 160-189 mg/dL Very High LDL: greater than or equal to 190 mg/dL HDL 44 >40 mg/dL Desirable HDL: greater than 40 mg/dL Note: This HDL assay may give artificially low results in patients with liver disease. Vitamin D 25-OH 57.7 >30 ng/mL Health Based Reference Values* < 20 ng/mL Deficient 20-30 ng/mL Insufficient > 30 ng/mL Sufficient Laboratory Tests 12/27/24 05/12/25 06:17 06:32 Estimat Average Glucose 140 Hemoglobin A1c % 6.5 H Microalb/Creat Ratio 52.4 H Coding Level of Care Code Est Pt Level 4 (41948) Complex EM visit Add On G2211 Diagnoses Depression, controlled F32.A Essential hypertension I10 Mixed dyslipidemia E78.2 Diabetes mellitus with microalbuminuria, without long-term current use of insulin E11.29; R80.9 Assessment & Plan Assessment & Plan (1) Depression, controlled: Code(s): F32.A - Depression, unspecified Category: Medical Plan: Continue with sertraline 50 mg daily (2) Essential hypertension: Code(s): I10 - Essential (primary) hypertension Category: Medical Plan: Continue lisinopril-HCTZ 20-12.5 mg daily and amlodipine 5 mg once a day (3) Mixed dyslipidemia: Code(s): E78.2 - Mixed hyperlipidemia Category: Medical Plan: Continue with rosuvastatin 5 mg once a day (4) Diabetes mellitus with microalbuminuria, without long-term current use of insulin: Code(s): E11.29 - Type 2 diabetes mellitus with other diabetic kidney complication; R80.9 - Proteinuria, unspecified Category: Medical Plan: Continue metformin ER 500 mg twice a day and Jardiance 10 mg in the morning. Flu vaccine given today Orders: Orders Influenza [id number] Immunization 07/14/25 Z23 - Encounter for immunization Lipid Panel 09/29/25 E11.29 - Type 2 diabetes mellitus with other diabetic kidney complication, E78.2 - Mixed hyperlipidemia, I10 - Essential (primary) hypertension, R80.9 - Proteinuria, unspecified Alanine Aminotransferase 09/29/25 E11.29 - Type 2 diabetes mellitus with other diabetic kidney complication, E78.2 - Mixed hyperlipidemia, I10 - Essential (primary) hypertension, R80.9 - Proteinuria, unspecified Aspartate Amino Transferase 09/29/25 E11.29 - Type 2 diabetes mellitus with other diabetic kidney complication, E78.2 - Mixed hyperlipidemia, I10 - Essential (primary) hypertension, R80.9 - Proteinuria, unspecified Basic Metabolic Panel Fasting 09/29/25 E11.29 - Type 2 diabetes mellitus with other diabetic kidney complication, E78.2 - Mixed hyperlipidemia, I10 - Essential (primary) hypertension, R80.9 - Proteinuria, unspecified Hemoglobin A1c 09/29/25 E11.29 - Type 2 diabetes mellitus with other diabetic kidney complication, E78.2 - Mixed hyperlipidemia, I10 - Essential (primary) hypertension, R80.9 - Proteinuria, unspecified
[2025-07-14 11:35] VITALS: BP 112/82; PULSE 86; RESP 15; TEMP 36.8; O2SAT 97; BMI 35.7
== END 2025-07-14 12:50 | disposition home or self-care (01) ==
LOC: HO.HMCC 11:32
PROVIDERS: PCP Internal Medicine; Visit Provider Internal Medicine
DX: F32.A Depression, unspecified (principal); I10 Essential (primary) hypertension; E78.2 Mixed hyperlipidemia; E11.29 Type 2 diabetes mellitus with other diabetic kidney complication; R80.9 Proteinuria, unspecified

== ENCOUNTER → 2025-07-14 11:31 | Outpatient (BNVA) | payer OTHER, SELFPAY | PROVIDERS: PCP Internal Medicine; Visit Provider Internal Medicine | DX: I10 Essential (primary) hypertension (principal); E11.29 Type 2 diabetes mellitus with other diabetic kidney complication; F32.A Depression, unspecified; E78.2 Mixed hyperlipidemia; R80.9 Proteinuria, unspecified; Z23 Encounter for immunization | CPT/HCPCS: 90471; 90656; 96127 ==

== ENCOUNTER 2025-07-23 13:00 | Outpatient (RCR) | payer OTHER, SELFPAY ==
--- NOTE | 2025-06-05 10:38 | MHC.PT.EP ---
[facility] [place] Office [place] Office [place] Office [address] Angelita Curtis [address] [phone] F: [phone] F: [phone] F: [phone] F: [phone] Physical Therapy Plan of Care Date of Evaluation: 06/05/25 Date of Surgery: Diagnosis: This is a 54 yo female presenting to skilled PT with a script for L ankle sprain. Assessment: This is a 54 yo female presenting to skilled PT with a script for L ankle sprain. 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 She does not remember injuring the ankle during the encounter but later that day she had increased pain and swelling. She went to Urgent Care, had an x-ray (was diagnosed with a high ankle sprain), given an ankle brace and given naproxen. She took a few days off of work and was referred to work connection (returns on the ). Pain increases with walking, lifting, running/higher level activities. Patient is I in her ADLs still and walking without an AD. Pain is located lateral ankle bone, pain comes and goes but unable to further to describe. She occasionally gets swelling laterally as well. In general she feels like she is getting better. Of note, she had an ankle surgery in 2021. Assessment reveals pain that ranges from up to a 3/10 at the worst. Patient demos decreased L ankle ROM, strength of LE's, TTP at lateral ankle with swelling at lateral ankle as well, decreased gait pattern and balance and impaired posture with forward head, forward trunk and rounded shoulders. Based on functional limitations, impaired QOL and pain tolerance patient is a good candidate for skilled PT 2x/wk for 4wks. Frequency and Duration: The patient will be seen 2x/wk for 4wks Short Term Goals: (in 2 weeks) Patient will improve ankle AROM by at least 5 degs without assist for DF and PF Patient will demo good understanding of healing times, anatomy and importance of footwear Patient will be I in HEP [employer] Goals: (in 4 weeks) Patient will report 75% improvement in balance and strength of LLE as evidenced by reports no of falls or buckling in LE Patient will tolerate weaning out of the brace with improved gait mechanics Patient will improve LEFs by 10 points Patient will demo WFL AROM of hip, knee and ankle Patient will demo proper squat and lift techniques without increase in pain Treatment Plan: Modalities to reduce pain, spasms and effusion. Manual therapy to restore motion and function. Therapeutic exercise to improve strength and flexibility. Neuromuscular re-education for posture and balance. Therapeutic activities to return to functional activities of daily living. Electronically signed by: Mony Tian PT Please sign and return to therapist. Thank you for your referral.
--- NOTE | 2025-07-23 13:57 | MHC.PT.DC ---
[facility] [place] Office [place] Office [place] Office [address] Angelita Curtis [address] [phone] F: [phone] F: [phone] F: [phone] F: [phone] Physical Therapy Discharge Report Diagnosis: This is a 54 yo female presenting to skilled PT with a script for L ankle sprain. Date of Surgery: Date of Evaluation: 06/05/25 Date of Discharge: 07/23/25 Treatments to Date: 14 Cancellations to Date: No Shows to Date: Discharge Status: Achieved Goals Improved Function Independent with HEP Discharge Summary: 07/23: Patient has come to 14 sessions of PT. She has improved her pain, ROM, strength. At this time she understands the healing times for her ankle injury and the time frame for further pain relief. Patient did report ankle pain on the other side and I recommended she follow up with MD who did her surgery in regards to this. DC to HEP. Electronically signed by: Mony Tian PT Please sign and return to therapist. Thank you for your referral.
== END 2025-07-23 13:57 | disposition home or self-care (01) ==
LOC: HO.PTCHIC 13:00
PROVIDERS: PCP Internal Medicine; Visit Provider Physician Assistant Medical
DX: S93.402D Sprain of unspecified ligament of left ankle, subsequent encounter (principal)
CPT/HCPCS: 97035; 97110; 97112; 97140; 97161; 97164

== ENCOUNTER 2025-10-11 07:31 | Outpatient (REF) | payer OTHER, SELFPAY ==
[2025-10-11 12:04] LABS: Hemoglobin A1C 127.2121 umol/L
[2025-10-11 12:07] LABS: Alanine Aminotransferase 38 U/L (0-31); Anion Gap 12 (12-20); Aspartate Amino Transferase 40 U/L (5-31); Blood Urea Nitrogen 13 mg/dL (9-16); Calcium 9.3 mg/dL (8.4-10.2); Carbon Dioxide 27 mmol/L (22-29); Chloride 105 mmol/L (96-108); Cholesterol 142 mg/dL (<200); Estimated Glomerular Filt Rate > 60; HDL Cholesterol 42 mg/dL (>40); Potassium 3.4 mmol/L (3.3-5.1); Sodium 141 mmol/L (135-145); Triglycerides 105 mg/dL (<150)
== END 2025-10-11 07:32 | disposition home or self-care (01) ==
LOC: HO.HMGCLDS 07:31
PROVIDERS: PCP Internal Medicine; Visit Provider Internal Medicine
DX: E11.29 Type 2 diabetes mellitus with other diabetic kidney complication (principal); R80.9 Proteinuria, unspecified; E78.2 Mixed hyperlipidemia; I10 Essential (primary) hypertension
CPT/HCPCS: 36415; 80048; 80061; 83036; 84450; 84460

== ENCOUNTER 2025-10-16 15:09 | Outpatient (AMB) | payer OTHER, SELFPAY ==
[2025-10-16 15:51] VITALS: BP 124/78; PULSE 76; RESP 16; TEMP 36.3; O2SAT 96; BMI 35.3
--- NOTE | 2025-10-16 15:51 | A.OFFPC_ITS ---
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 Allergies amoxicillin Allergy (Unknown, Verified 10/16/25 16:08) itchy, itching atorvastatin Allergy (Unknown, Verified 10/16/25 16:08) itchy, itching doxycycline Allergy (Unknown, Verified 10/16/25 16:08) hives Medication List - Last Reconciled 10/16/25 by Claire Castillo MD amlodipine 5 mg PO DAILY blood sugar diagnostic (FreeStyle Lite Strips) Test blood sugar BID AC blood-glucose meter (FreeStyle Lite Meter kit) As directed Jardiance (empagliflozin) 10 mg PO QAM NS lancets (FreeStyle Lancets) Test blood sugar twice per day lisinopril-hydrochlorothiazide 20-12.5 mg 1 tab PO DAILY metformin ER 500 mg PO BID 3 months rosuvastatin 5 mg PO DAILY sertraline 50 mg PO DAILY Tobacco use date assessed: 10/16/25 Dental Screening Dental Screen Date: 10/16/25 Did you have a dental visit in the last 12 months?: Yes Did you have a dental problem in the last 6 months where you did not have access to dental care?: No Was dental information given to patient?: Patient has dentist HPI F/up diabetes, lipids, hypertension HPI Details 55-year-old lady here today for follow-u p on her diabetes mellitus, lipids and hypertension. Patient admits to being off her diet, as she just came back from a visit in the [facility] where she has been eating a lot of carbohydrate rich foods. Diabetes mellitus control is slipping now with hemoglobin A1c at 6.9% but fasting lipids are within normal limits. Blood pressure also stable and controlled on present treatment with lisinopril-HCTZ and amlodipine. [facility] Medical History (Updated 10/16/25 @ 16:09 by Claire Castillo MD) Depression, controlled History of shingles Lesion of bone of ankle Vitamin D deficiency Obesity (BMI 30-39.9) Seasonal allergies Diabetes mellitus with microalbuminuria, without long-term current use of insulin Essential hypertension Type 2 diabetes mellitus without complication, without long-term current use of insulin Mixed dyslipidemia Hx of gastroesophageal reflux (GERD) Surgical History H/O foot surgery Hx of section Family History Father Hypertension Kidney disease Mother Hypertension Stroke Brother No problems noted. Brother No problems noted. Brother No problems noted. Brother No problems noted. Sister No problems noted. Sister No problems noted. Sister No problems noted. Sister No problems noted. Son No problems noted. 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 1. Little interest or pleasure in doing things: not at all 2. Feeling down, depressed, or hopeless: not at all 3. Trouble falling or staying asleep, or sleeping too much: not at all 4. Feeling tired or having little energy: not at all 5. Poor appetite or overeating: not at all 6. Feeling bad about yourself - or that you are a failure or have let yourself or your family down: not at all 7. Trouble concentrating on things, such as reading the newspaper or watching television: not at all 8. Moving or speaking so slowly that other people could have noticed. Or the opposite - being so fidgety or restless that you have been moving around a lot more than usual: not at all 9. Thoughts that you would be better off or of hurting yourself in some way: not at all Total score: 0 Depression Screening Interpretation: Negative Depression Screening Done: Yes Source: Developed by Drs. Tay Kendall, Monet Blandon, Ritesh Miner and colleagues, with an educational yifan from [employer]. Thrive Questionnaire Date Thrive assessed: 12/26/24 I am a: Patient What is your living situation today?: I have a steady place to live Within the past 12 months, did the food you bought not last and you didn't have the money to get more?: Never true Within the past 12 months, did you worry whether your food would run out before you got money to buy more?: Never true Do you have trouble paying for medicines?: No Do you have trouble getting transportation to medical appointments?: No Do you have trouble paying your heating and electricity bill?: No Do you have trouble taking care of your child, family member or friend?: No Do you have trouble with day-to-day activities such as bathing, preparing meals, shopping, managing finances, etc.?: No Are you currently unemployed and looking for a job?: No Are you interested in more education?: No Please select the resources that you would like help with: None Currently or been in a relationship where the following occur: I choose not to answer THRIVE Score: 0 EDI-7 AMB Questionnaire EDI-7 Date EDI - 7 assessed: 01/02/25 Source: Developed by Drs. Tay Kendall, Monet Blandon, Ritesh Miner and colleagues, with an educational yifan from [employer]. Review of Systems Const Denies daytime sleepiness, Denies fatigue, Denies poor appetite and Denies weakness Eyes Denies change in vision ENT Denies dizziness Card Denies chest pain, Denies claudication, Denies leg edema, Denies lightheadedness, Denies palpitations and Denies dyspnea Resp Denies cough and Denies dyspnea GI Denies abdominal pain, Denies hematochezia and Denies change in bowel habits Denies urinary frequency and Denies dysuria Musc Denies arthralgias, Denies muscle weakness and Denies numbness Neuro Denies dizziness, Denies memory loss, Denies numbness and Denies weakness Psych Denies depression and Denies memory loss Endo Denies fatigue and Denies palpitations Claudy/Lymph Reports no additional complaints Aller/Immun Reports no additional complaints Physical exam (Primary Care) Vital Signs: Last Vital Signs Temp 97.3 F 10/16/25 15:51 Pulse 76 10/16/25 15:51 Resp 16 10/16/25 15:51 BP 124/78 10/16/25 15:51 Pulse Ox 96 10/16/25 15:51 Oxygen Delivery Method Room Air 10/16/25 15:51 BMI result Body Mass Index 35.3 Tobacco/Smoking Status: Tobacco use Status Tobacco use date assessed 10/16/25 10/16/25 15:55 Patient Tobacco Use Status Never used Tobacco 10/16/25 15:55 e-Cigarette/Vaping Use Never Used 10/16/25 15:55 PHQ-9: PHQ-9 Score PHQ-9: Total score 0 10/16/25 16:11 Depression Screening Interpretation: Negative Thrive Assessment: Date of Thrive Assessment Date Thrive assessed 12/26/24 10/16/25 15:55 Currently or been in a relationship where the following occur: I choose not to answer Const Other: Alert , obese, oriented x3, no acute distress noted ambulatory with normal gait HENMD Ears: hearing grossly normal bilaterally General nose exam: Normal external nose present Mouth: Normal oral and palatal mucosa present and moist mucous membranes Eyes General: appearance normal, both eyes and all related structures Neck Neck: Yes full ROM, Yes no lymphadenopathy and Yes supple Resp Auscultation: clear to auscultation bilaterally Cardio Other: S1-S2 present regular rate and rhythm GI Other: Normal bowel sounds, soft, nontender, no mass palpated General: Yes deferred (Sees [facility]) Skin General skin exam: no rashes or lesions noted Neuro General: tone normal, Normal light touch and pain sensation, no focal motor deficits and CN's II-XI intact bilaterally Extrem General: Yes no joint enlargement, Yes no pedal edema, Yes no calf tenderness, Yes normal gait and No calf tenderness Psych Appearance: grossly normal and well kempt Mental Status: mental status grossly normal Speech and movement: Normal speech and movement present Affect: normal affect Results Reviewed Results Reviewed: Laboratory Tests 12/27/24 10/11/25 06:17 07:56 Estimat Average Glucose 151 Hemoglobin A1c % 6.9 H Microalb/Creat Ratio 52.4 H RUN: 10/16/25 4028 PAGE 1 [facility] [address] [place] [id number] Group Insurance Specialist: Carlos An M.D. Specimen Inquiry Name: Leandro Núñez Age/Sex: 54/F : 1970 Unit#: [id number] Attend Dr: Claire Castillo MD Re10/11/25 Status: DEP [facility] Dis[facility]: SPEC : [id number] DAVID: 10/11/25 STATUS: COMP REQ : [id number] RECD: 10/11/[address]: Claire Castillo MD COMP: 10/11/25 ENTERED: 10/11/25 [facility] DR: ORDERED: Met Prof Fast, AST, ALT, Lipid Panel Test Result Flag Reference Sodium 141 135-145 mmol/L Potassium 3.4 3.3-5.1 mmol/L CL 105 96-108 mmol/L CO2 27 22-29 mmol/L Gap 12 12-20 BUN 13 9-16 mg/dL Creat 0.59 0.5-1.4 mg/dL eGFR > 60 Chronic Kidney Disease: Estimated GFR < 60 mL/min/1.73m2 Severe Kidney Disease: Estimated GFR < 15 mL/min/1.73m2 FBS 128 H 60-99 mg/dL A fasting glucose of 126 mg/dl or greater on more than one occasion is considered diagnostic of diabetes. CA 9.3 8.4-10.2 mg/dL AST (GOT) 40 H 5-31 U/L ALT (GPT) 38 H 0-31 U/L Triglyceride 105 <150 mg/dL Desirable Triglyceride: less than 150 mg/dL Borderline High Triglyceride 150-199 mg/dL High Triglyceride: 200-499 mg/dL Very High Triglyceride: greater than or equal to 5OO mg/dL Cholesterol 142 <200 mg/dL Desirable Cholesterol: less than 200 mg/dL Borderline High Cholesterol: 200-239 mg/dL High Cholesterol: greater than 239 mg/dL LDL Calculated 79 <100 mg/dL Desirable LDL: less than 100 mg/dL Near Optimal/Above Optimal LDL: 110-129 mg/dL Borderline High LDL: 130-159 mg/dL High LDL: 160-189 mg/dL Very High LDL: greater than or equal to 190 mg/dL HDL 42 >40 mg/dL Desirable HDL: greater than 40 mg/dL Note: This HDL assay may give artificially low results in patients with liver disease. Coding Level of Care Code Est Pt Level 4 (86723) Diagnoses Essential hypertension I10 Mixed dyslipidemia E78.2 Diabetes mellitus with microalbuminuria, without long-term current use of insulin E11.29; R80.9 Assessment & Plan Assessment & Plan (1) Essential hypertension: Code(s): I10 - Essential (primary) hypertension Category: Medical Plan: Blood pressure at goal of less than 130/80. Continue with current medication. Reinforced importance of following a low sodium diet, getting regular exercise, and lowering stress levels. (2) Mixed dyslipidemia: Code(s): E78.2 - Mixed hyperlipidemia Category: Medical Plan: Fasting lipids are within normal limits. Continued on rosuvastatin 5 mg once a day (3) Diabetes mellitus with microalbuminuria, without long-term current use of insulin: Code(s): E11.29 - Type 2 diabetes mellitus with other diabetic kidney complication; R80.9 - Proteinuria, unspecified Category: Medical Plan: Latest hemoglobin A1c is at 6.9%. Reinforced importance of adhering to recommended diet and getting regular exercise. Will continue on metformin ER 500 mg 1 tablet twice a day and Jardiance 10 mg in the morning. Reminded to get her yearly diabetes eye exam. Repeat fasting labs again in 4 months Orders: Orders Aspartate Amino Transferase 01/31/26 E11.29 - Type 2 diabetes mellitus with other diabetic kidney complication, R80.9 - Proteinuria, unspecified, E78.2 - Mixed hyperlipidemia, I10 - Essential (primary) hypertension Alanine Aminotransferase 01/31/26 E11.29 - Type 2 diabetes mellitus with other diabetic kidney complication, R80.9 - Proteinuria, unspecified, E78.2 - Mixed hyperlipidemia, I10 - Essential (primary) hypertension Microalbumin, Random (w Creat) 01/31/26 E11.29 - Type 2 diabetes mellitus with other diabetic kidney complication, R80.9 - Proteinuria, unspecified, E78.2 - Mixed hyperlipidemia, I10 - Essential (primary) hypertension Lipid Panel 01/31/26 E11.29 - Type 2 diabetes mellitus with other diabetic kidney complication, R80.9 - Proteinuria, unspecified, E78.2 - Mixed hyperlipidemia, I10 - Essential (primary) hypertension Basic Metabolic Panel Fasting 01/31/26 E11.29 - Type 2 diabetes mellitus with other diabetic kidney complication, R80.9 - Proteinuria, unspecified, E78.2 - Mixed hyperlipidemia, I10 - Essential (primary) hypertension Hemoglobin A1c 01/31/26 E11.29 - Type 2 diabetes mellitus with other diabetic kidney complication, R80.9 - Proteinuria, unspecified, E78.2 - Mixed hyperlipidemia, I10 - Essential (primary) hypertension Medications: New ondansetron HCl 4 mg PO Q8H PRN 20 tabs 0RF nausea and vomiting
== END 2025-10-16 16:30 | disposition home or self-care (01) ==
LOC: HO.HMCC 15:10
PROVIDERS: PCP Internal Medicine; Visit Provider Internal Medicine
DX: I10 Essential (primary) hypertension (principal); E78.2 Mixed hyperlipidemia; E11.29 Type 2 diabetes mellitus with other diabetic kidney complication; R80.9 Proteinuria, unspecified